=== PATIENT | male | born 1950 | race Caucasian/White ===

== ENCOUNTER 2016-04-20 12:48 | Emergency (ER) | payer MEDICAID ==
[~2016-04-20] VITALS: Ht 170.2 cm; Wt 90.3 kg
[2016-04-20] MEDS ORDERED: PANTOPRAZOLE SO40 M1 PO (13:00)
[2016-04-20] MEDS ORDERED: MELOXICAM15 MG PO (13:01)
[2016-04-20] MEDS ORDERED: OLANZAPINE20 MG PO (13:01)
[2016-04-20] MEDS ORDERED: SIMVASTATIN20 MG PO (13:01)
[2016-04-20] MEDS ORDERED: FISH OIL1000 MG PO (13:02)
[2016-04-20] MEDS ORDERED: SIMVASTATIN10 MG PO (13:03)
[2016-04-20] MEDS ORDERED: SERTRALINE 100100 MG PO (13:03)
[2016-04-20] MEDS ORDERED: LEVOTHYROXIN0.075 M1 PO (13:03)
[2016-04-20 13:31] LABS: LYMPH # 1.4 K/mm3 (0.7-4.5); LYMPH % 12.7 % (10-50)
--- NOTE | 2016-04-20 13:32 | Emergency Room Report ---
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 PT ALSO C/O HEARTBURN IN THE "PIT OF HIS STOMACH". PT REPORTS HX OF GI PROBLEMS INCLUDING ULCERS. 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 N Clinical Suspician of Infection? N Mental Status: 1 - Regular (Normal Baseline) Sepsis Risk:Low Sepsis Risk Have you (or family members/close friends) recently traveled outside the [place]? N If Yes, where/when: Have you had exposure to infectious disease within the past month? N TB? Other? Specify: Comment The patient is brought in by ambulance with complaint of heartburn and vomiting. He states that he awakened this morning with bad heartburn, took his morning medicines and vomited them up. He says his vomitus was black. He is not sure whether it was from blood. He denies any melena or hematochezia. His nausea and heartburn have improved. He denies chest pain or shortness of breath. He also complains of hiccups. ALLERGIES Coded Allergies: Penicillins (Mild, 04/20/16) haloperidol (Mild, 04/20/16) Home Medications Reported Medications Pantoprazole Sodium 40 MG PO DAILY #30 Simvastatin 20 MG PO DAILY #30 Meloxicam (Meloxicam 15MG) 15 MG PO BID #30 Olanzapine 20 MG PO DAILY #30 OMEGA-3 FATTY ACIDS/FISH OIL (Fish Oil 1,000 MG Capsule) 1,000 MG PO TID #90 Sertraline Hydrochloride (Sertraline 100MG) 100 MG PO DAILY #45 Levothyroxine Sodium (Levothyroxine 0.075MG) 0.075 MG PO DAILY #15 Simvastatin 10 MG PO DAILY #30 History Medical History General CAD? Yes Angina: No [place]: No Hypertension? No Hyperlipidemia? No CHF? No DVT? No PE? No COPD? No Asthma? No Anemia? No GERD? No Gastric ulcers? No GI Bleed? No Hernia? No Thyroid Problems? Yes Hypothyroidism? Yes CVA? No Seizures? No Diabetes? Yes Insulin Dependent: No Insulin Pump: No Home FSBS? No Renal Insuffiency? No End Stage Renal Disease? No UTI? No Stones? No BPH? No GB Disease: No Nephritic Syndrome? No Asplenia? No Hepatitis? No Sickle Cell Disease? No Arthritis? Yes Migraines? No Cataracts? No Glaucoma? No MRSA? No HIV? No TB? No Anxiety? No Depression? No Cancer? No More? Yes Additional hx: SCHIZOPHRENIA, CHR PARANOIA, OA Immunization Hx DT/Tetanus 1-4 Years Ago Surgical Hx Previous Surgery?Y CYST ON NECK TRACH APPENDECTOMY Social History Smoking Hx Smoker: Former Smoker Tobacco: Yes Type Cigarettes Alcohol Alcohol: No Review of Systems All Other Systems Reviewed and Negative Respiratory denies shortness of breath Cardiovascular denies chest pain Gastrointestinal abdominal pain (epigastric), denies diarrhea, nausea, vomiting Physical Exam Vital Signs Vital Signs Date Time Temp Pulse Resp B/P Pulse O2 O2 Flow FiO2 Ox Delivery Rate 04/20 1639 99.0 96 20 146/110 96 04/20 1558 18 04/20 1527 99.2 90 16 159/111 96 04/20 1347 98.9 108 16 122/48 94 04/20 1249 99.2 111 14 125/81 94 General Appearance normal appearance, WD/WN, sitting upright in chair Eye Exam - bilateral eye normal exam, bilateral eye PERRL, bilateral eye EOMI Ear, Nose, Throat hearing grossly normal, normal ENT inspection Neck normal inspection, non-tender, supple, full range of motion Respiratory Status Yes: trachea midline, chest symmetrical, non tender chest. No: respiratory distress. Lung Sounds bilateral: normal breath sounds, lungs clear. 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 No Results/Orders Laboratory Tests 04/20/16 1340: Stool Occult Blood NEGATIVE 04/20/16 1305: Troponin I < 0.02 04/20/16 1305: Sodium 138, Potassium 4.7, Chloride 104, Carbon Dioxide 24, BUN 29 H, Creatinine 1.4 H, Estimated Creat Clear 68, Estimated GFR (MDRD) 51, Glucose 163 H, Calcium 9.1, Total Bilirubin 0.4, AST 19, ALT 23, Alkaline Phosphatase 116, Total Protein 7.8, Albumin 3.3 L, Globulin 4.5 H, Albumin/Globulin Ratio 0.7 L, Amylase 68, Lipase 269, WBC 10.8, RBC 5.62, Hgb 16.0, Hct 48.1, MCV 85.5 , RDW 15.3, Plt Count 301, MPV 8.6, Gran % 79.0, Gran # 8.5 H, Lymphocytes % 12.7, Monocytes % 6.3, Eosinophils % 1.3, Basophils % 0.7, Lymphocytes # 1.4, Monocytes # 0.7, Eosinophils # 0.1, Basophils # 0.1, PUBS MCHC 33.3, MCH 28.5 Current Medication Orders Sig/Martine Start time Last Medication Dose Route Stop Time Status Admin Morphine Sulfate 4 MG ONCE ONE 04/20 1600 DC 04/20 IV 04/20 1601 1558 Ondansetron HCl 4 MG ONCE ONE 04/20 1600 DC 04/20 IV 04/20 1601 1557 Ondansetron HCl 0 .STK-MED ONE 04/20 1555 DC .ROUTE Morphine Sulfate 0 .STK-MED ONE 04/20 1554 DC .ROUTE Multi-Ingredient GI 60 ML ONCE ONE 04/20 1515 DC 04/20 Drug PO 04/20 1516 1509 Multi-Ingredient GI 0 .STK-MED ONE 04/20 1509 DC Drug PO Famotidine 20 MG ONCE ONE 04/20 1400 DC 04/20 IV 04/20 1401 1355 Ondansetron HCl 4 MG ONCE ONE 04/20 1400 DC 04/20 IV 04/20 1401 1355 Sodium Chloride 8 ML ONCE ONE 04/20 1400 DC 04/20 IV 04/20 1401 1355 Famotidine 0 .STK-MED ONE 04/20 1353 DC IV Ondansetron HCl 0 .STK-MED ONE 04/20 1353 DC .ROUTE Sodium Chloride 10 ML PRN PRN 04/20 1315 AC IV 04/21 1304 Sodium Chloride 1,000 ML .Q1H1M 04/20 1315 DC 04/20 IV 04/20 1415 1315 Sodium Chloride 10 ML PRN PRN 04/20 1315 AC IV 04/21 1312 Sodium Chloride 1,000 ML .STK-MED ONE 04/20 1314 DC IV Orders Procedure Date/time Status ELECTROCARDIOGRAM REQUEST 04/20 1347 Active TROPONIN I 04/20 1347 Complete STOOL OCCULT BLOOD 04/20 1346 Complete 12 LEAD EKG-BEN (INITIAL) 04/20 1340 Active IV SALINE LOCK 04/20 1304 Active LIPASE 04/20 1304 Complete CBC WITH AUTO DIFF 04/20 1304 Complete CHEM 12 PROFILE 04/20 1304 Complete AMYLASE 04/20 1304 Complete CM/EKG CM/EKG Comments EKG interpreted by Sergio Andrade MD: Rhythm: sinus Rate: 88 Sherrill: normal Ectopy: none Conduction: normal ST Segment Changes: none T Wave Changes: Nonspecific Q Waves: none Baseline artifact and wander present, but I consider the EKG adequate for accurate interpretation. No evidence of acute ischemia or injury Progress - 3:00 PM: States no change with Pepcid and Zofran. 3:45 PM: States mild improvement, currently rates pain moderate. I suspect biliary colic. Still mildly tender RIGHT upper quadrant. 5:30 PM: Symptoms resolved. Abdomen soft and nontender. Suspect biliary colic. I will recommend gallbladder ultrasound as an outpatient. Departure Departure Disposition DC Home or Self Care(routine) Clinical Impression Primary Impression: Epigastric abdominal pain Condition STABLE Referrals Ben SHAFFER,Maikol Ley (PCP) Patient Instructions DI for Abdominal Pain-Adult Additional Instructions I recommend outpatient gallbladder ultrasound. Additional instructions for ABDOMINAL PAIN: See your physician as soon as possible for further evaluation. Return immediately if worsening abdominal pain, vomiting, shortness of breath, fever, vomiting of blood or abdominal distention. ED Critical Care Critical Care No at 1730
[2016-04-20 14:30] LABS: STOOL OCCULT BLOOD NEGATIVE (NEG)
[2016-04-20 17:48] VITALS: BP 150/67
== END 2016-04-20 17:49 | disposition home or self-care (01) ==
LOC: ER 12:48
PROVIDERS: Emergency Medicine
DX: R10.13 Epigastric pain (principal); E11.9 Type 2 diabetes mellitus without complications; I25.10 Atherosclerotic heart disease of native coronary artery without angina pectoris; Z87.891 Personal history of nicotine dependence
CPT/HCPCS: J2405

== ENCOUNTER 2016-08-07 14:54 | Observation (INO) | payer MEDICAID ==
[~2016-08-07] VITALS: Ht 170.2 cm; Wt 95.3 kg
[~2016-08-07 14:54] MED LIST: FISH OIL1000 MG PO; LEVOTHYROXIN0.075 M1 PO; MELOXICAM15 MG PO; OLANZAPINE20 MG PO; PANTOPRAZOLE SO40 M1 PO; SERTRALINE 100100 MG PO; SIMVASTATIN10 MG PO; SIMVASTATIN20 MG PO
[2016-08-07 14:55] VITALS: BP 105/68
[2016-08-07 15:19] LABS: LYMPH # 2.6 K/mm3 (0.7-4.5); LYMPH % 21.5 % (10-50)
[2016-08-07 15:27] LABS: HEMOGLOBIN 13.1 g/dL (14.1-18.0)
--- NOTE | 2016-08-07 15:33 | Emergency Room Report ---
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 N Clinical Suspician of Infection? N Mental Status: 1 - Regular (Normal Baseline) Sepsis Risk:Low Sepsis Risk Have you (or family members/close friends) recently traveled outside the [place]? N If Yes, where/when: Have you had exposure to infectious disease within the past month? TB? Other? Specify: [place] resident, reports "coffee grounds emesis" by staff today. Has epigastric pain, nonradiating. No chest pain. Hx PUD. Denies NSAID or aspirin use. No BRBPR. Noted by EMS to have hypotension in the field, SBP upper 70's, improved with IVF administration prior to arrival. No emesis while in ambulance. Source patient, EMS ALLERGIES Coded Allergies: Penicillins (Mild, 04/20/16) haloperidol (Mild, 04/20/16) Home Medications Reported Medications Pantoprazole Sodium 40 MG PO DAILY #30 Simvastatin 20 MG PO DAILY #30 Meloxicam (Meloxicam 15MG) 15 MG PO BID #30 Olanzapine 20 MG PO DAILY #30 OMEGA-3 FATTY ACIDS/FISH OIL (Fish Oil 1,000 MG Capsule) 1,000 MG PO TID #90 Sertraline Hydrochloride (Sertraline 100MG) 100 MG PO DAILY #45 Levothyroxine Sodium (Levothyroxine 0.075MG) 0.075 MG PO DAILY #15 Simvastatin 10 MG PO DAILY #30 History Medical History General CAD? Yes Angina: No [place]: No Hypertension? No Hyperlipidemia? No CHF? No DVT? No PE? No COPD? No Asthma? No Anemia? No GERD? No Gastric ulcers? No GI Bleed? No Hernia? No Thyroid Problems? Yes Hypothyroidism? Yes CVA? No Seizures? No Diabetes? Yes Insulin Dependent: No Insulin Pump: No Home FSBS? No Renal Insuffiency? No End Stage Renal Disease? No UTI? No Stones? No BPH? No GB Disease: No Nephritic Syndrome? No Asplenia? No Hepatitis? No Sickle Cell Disease? No Arthritis? Yes Migraines? No Cataracts? No Glaucoma? No MRSA? No HIV? No TB? No Anxiety? No Depression? No Cancer? No More? Yes Additional hx: SCHIZOPHRENIA, CHR PARANOIA, OA Immunization Hx DT/Tetanus 1-4 Years Ago Surgical Hx Previous Surgery?Y CYST ON NECK TRACH APPENDECTOMY Social History Smoking Hx Smoker: Never Smoker Tobacco: No Alcohol Alcohol: No Review of Systems All Other Systems Reviewed and Negative Gastrointestinal see HPI Physical Exam Vital Signs Vital Signs Date Time Temp Pulse Resp B/P Pulse O2 O2 Flow FiO2 Ox Delivery Rate 08/07 1710 99.2 98 16 162/97 95 08/07 1455 98.2 96 14 105/68 91 General Appearance normal appearance, WD/WN, no apparent distress Eye Exam - bilateral eye normal exam, bilateral eye pale conjunctivae Neck normal inspection, non-tender, supple, full range of motion Respiratory Status Yes: trachea midline, chest symmetrical, non tender chest. No: respiratory distress, tender on palpation, use of accessory muscles, pain on inspiration, pain on expiration, productive cough, non productive cough. Lung Sounds bilateral: normal breath sounds, lungs clear. Cardiovascular normal exam, regular rate/rhythm, no peripheral edema, no gallop, no JVD, no murmur, no rub, normal peripheral pulses Gastrointestinal soft, no pulsatile mass, distended (hypoactive BS, slightly dist. ) Extremities non-tender, normal range of motion, normal inspection, normal capillary refill, no calf tenderness, no pedal edema (pallor) Rectal normal exam, normal rectal tone (brown stool; card to lab) Nurse present during exam? Yes Neurologic alert, normal exam, no motor/sensory deficits, oriented x 3 Skin intact, warm/dry, abrasions, pallor Lymphatic no adenopathy Medical Decision Making LABS/Meds/Orders Pt receiving controlled substance in ED? No Results/Orders Laboratory Tests 08/07/16 1640: Antibody Screen Pending, Miscellaneous Test Pending 08/07/16 1600: Stool Occult Blood NEGATIVE 08/07/16 1445: Sodium 140, Potassium 3.5, Chloride 103, Carbon Dioxide 18 L, BUN 36 H, Creatinine 2.2 H, Estimated Creat Clear 44 L, Estimated GFR (MDRD) 30, Glucose 246 H, Calcium 8.6, Total Bilirubin 0.5, AST 14 L, ALT 23, Alkaline Phosphatase 110, Total Protein 7.7, Albumin 3.2 L, Globulin 4.5 H, Albumin/ Globulin Ratio 0.7 L, Amylase 53, Lipase 197, PT 11.4, INR 1.07, APTT 23.0 L, WBC 12.3 H, RBC 4.80, Hgb 13.1 L, Hct 39.6 L, MCV 82.6, RDW 13.7, Plt Count 398, MPV 6.2 L, Gran % 72.6, Gran # 8.9 H, Lymphocytes % 21.5, Monocytes % 5.2 , Eosinophils % 0.1, Basophils % 0.5, Lymphocytes # 2.6, Monocytes # 0.6, Eosinophils # 0.0, Basophils # 0.1, PUBS MCHC 32.5, MCH 26.8 L Current Medication Orders Sig/Martine Start time Last Medication Dose Route Stop Time Status Admin Pantoprazole Sodium 0 .STK-MED ONE 08/07 1701 DC IV Sodium Chloride 1,000 ML .STK-MED ONE 08/07 1701 DC IV Ondansetron HCl 0 .STK-MED ONE 08/07 1700 DC .ROUTE Ondansetron HCl 4 MG ONCE ONE 08/07 1615 DC 08/07 IV 08/07 1616 1707 Pantoprazole Sodium 40 MG ONCE ONE 08/07 1530 DC 08/07 IV 08/07 1531 1707 Sodium Chloride 10 ML ONCE ONE 08/07 1530 DC 08/07 IV 08/07 1531 1709 Sodium Chloride 1,000 ML .Q1H1M 08/07 1530 DC 08/07 IV 08/07 1630 1707 Sodium Chloride 10 ML PRN PRN 08/07 1530 AC IV 08/08 1529 Sodium Chloride 10 ML PRN PRN 08/07 1515 AC IV 08/08 1507 Orders Procedure Date/time Status DIET-NOTHING BY MOUTH 08/07 D Active Decision to admit 08/07 1712 Active PARTIAL THROMBOPLASTIN TIME 08/07 1529 Complete PROTHROMBIN TIME 08/[address] ABD/PELVIS REQ 08/07 1507 Complete IV SALINE LOCK 08/07 1507 Active TYPE AND SCREEN 08/07 1507 Active STOOL OCCULT BLOOD 08/07 1507 Complete LIPASE 08/07 1507 Complete CBC WITH AUTO DIFF 08/07 1507 Complete CHEM 12 PROFILE 08/07 1507 Complete AMYLASE 08/07 1507 Complete Consult MD Physician Consult 1 Time Called 1631 Reason Pt. Condition Physician Consult 2 Time Called 1709 Reason Pt. Condition Progress ED Progress Notes Date 08/07/16 Time 1713 Comment BP improving; admit for fluid hydration and serial guiacs; I spoke with Dr. Field for Dr. Pablo Departure Departure Time of Disposition 1713 Disposition Still a Patient Clinical Impression Primary Impression: Dehydration Secondary Impressions: Vomiting Qualifiers: Vomiting type: unspecified Vomiting Intractability: non-intractable Nausea presence: with nausea Qualified Code: R11.2 - Nausea with vomiting, unspecified Condition STABLE Referrals Conrado Garber (Family) ED Critical Care Critical Care No at 1714
[2016-08-07 16:10] LABS: STOOL OCCULT BLOOD NEGATIVE (NEG)
--- NOTE | 2016-08-07 16:16 | RADIOLOGY REPORT PS360 ---
CT ABD PELVIS W/O CONTRAST CLINICAL INDICATION: Abdominal pain, right upper quadrant pain with vomiting and bloating ABD PAIN RUQ ORDERING PHYSICIAN: Nafisa Fishman MD PATIENT AGE: 66 years COMPARISON: None TECHNIQUE: Axial images obtained with sagittal and coronal reformats. PROCEDURE: Oral Contrast: None IV Contrast: None . FINDINGS: Lung bases are clear. No focal liver lesion evident. There are multiple gallstones. The gallbladder does not appear distended. There is a medium-sized hiatal hernia with mild fluid-filled distention of the distal esophagus which could be related to reflux. The spleen and adrenal glands are unremarkable. There is a subtle area of decreased attenuation within the pancreatic head measuring 7 mm. This is of questionable clinical significance and may be better evaluated with dedicated CT of the pancreas without and with contrast with pancreatic protocol. There are bilateral renal cortical cysts measuring up to 2.9 cm on the left and 1.8 cm on the right. No obstructing renal or ureteral calculi. No evidence of appendicitis or diverticulitis. There is diverticulosis of the sigmoid colon No acute bony anomalies. IMPRESSION: 1. Cholelithiasis. 2. Subtle isodense in the pancreatic head. Consider follow-up exam with pancreatic protocol. 3. Other nonacute findings as described above.
[2016-08-07 17:29] LABS: ABO BLOOD TYPE O; RH BLOOD TYPE POSITIVE
[2016-08-07 18:58] VITALS: BP 126/78
[2016-08-07 20:20] VITALS: BP 126/78
[2016-08-07 20:29] VITALS: BP 161/91
[2016-08-08] VITALS (12 sets, daily range): BP systolic 123–185; BP diastolic 53–95
[2016-08-08 06:38] LABS: HEMOGLOBIN 10.8 g/dL (14.1-18.0); LYMPH # 2.1 K/mm3 (0.7-4.5); LYMPH % 17.8 % (10-50)
--- NOTE | 2016-08-08 08:16 | HISTORY AND PHYSICAL REPORT ---
Demographics: Admit date: 08/07/16 Chief complaint: Vomiting coffee grounds PRIMARY DIAGNOSIS: DEHYDRATION Allergies: Coded Allergies: Penicillins (Mild, 04/20/16) haloperidol (Mild, 04/20/16) History of present illness: History of present illness: 66-year-old white male, resident of a local personal retirement who was brought by EMS to the emergency department because of vomiting and reported coffee ground emesis. Also was dehydrated, in the emergency department found to have prerenal azotemia with acute kidney injury, evidence of coffee-ground emesis and reported hypotension by EMS in route. He was rehydrated in the emergency department and admitted to the floor for further evaluation. This morning he states he is feeling some better, and has eaten a tray of clear liquids. He has not vomited since last night. Past medical history: Family HX Diabetes Yes CAD Yes Hypertension Yes Hyperlipidemia Yes Cancer Yes TB No Immunization HX DT/Tetanus 1-4 Years Ago Pneumonia Never Had TB Test in last year Yes Result Negative General CAD? Yes Angina: No [place]: No Hypertension? No Hyperlipidemia? No CHF? No DVT? No PE? No COPD? No Asthma? No Anemia? No GERD? No Gastric ulcers? No GI Bleed? No Hernia? No Thyroid Problems? Yes Hypothyroidism? Yes CVA? No Seizures? No Diabetes? Yes Insulin Dependent: No Insulin Pump: No Home FSBS? No Renal Insuffiency? No UTI? No Stones? No BPH? No GB Disease: No Nephritic Syndrome? No Asplenia? No Hepatitis? No Sickle Cell Disease? No Arthritis? Yes Migraines? No Cataracts? No Glaucoma? No MRSA? No HIV? No TB? No Anxiety? No Depression? No Cancer? No More? Yes Additional hx: SCHIZOPHRENIA, CHR PARANOIA, OA Past Surgical HX Previous Surgery?Y CYST ON NECK TRACH APPENDECTOMY Current home meds: Reported Medications Pantoprazole Sodium 40 MG PO DAILY #30 Simvastatin 20 MG PO DAILY #30 Meloxicam (Meloxicam 15MG) 15 MG PO BID #30 Olanzapine 20 MG PO DAILY #30 OMEGA-3 FATTY ACIDS/FISH OIL (Fish Oil 1,000 MG Capsule) 1,000 MG PO TID #90 Sertraline Hydrochloride (Sertraline 100MG) 100 MG PO DAILY #45 Levothyroxine Sodium (Levothyroxine 0.075MG) 0.075 MG PO DAILY #15 Social Hx: Smoking HX Tobacco No Are you/the child exposed to second-hand smoke: No Alcohol Alcohol: No Hx of Drug Use Drug Use? No Patien't marital status is single Patient's support system is fair Review of systems: Constitutional No: fever, malaise, weakness. Respiratory No: no symptoms reported. Cardiovascular No no symptoms reported Gastrointestinal/Abdominal see HPI Genitourinary No: no symptoms reported. Musculoskeletal No: no symptoms reported. Neurological No: see HPI. Exam: Lab data for last 24 hours: Laboratory Tests 08/08/16 0615: Sodium 142, Potassium 4.5, Chloride 110 H, Carbon Dioxide 23, BUN 34 H, Creatinine 1.3, Estimated Creat Clear 77, Estimated GFR (MDRD) 56, Glucose 150 H, Calcium 7.6 L, WBC 11.5 H, RBC 3.95 L, Hgb 10.8 L, Hct 31.9 L, MCV 80.7 L, RDW 14.0, Plt Count 265, MPV 6.1 L, Gran % 76.7, Gran # 8.9 H, Lymphocytes % 17.8, Monocytes % 4.7, Eosinophils % 0.5, Basophils % 0.2, Lymphocytes # 2.1, Monocytes # 0.5, Eosinophils # 0.1, Basophils # 0.0, PUBS MCHC 33.5, MCH 27.0 08/08/16 0614: POC Glucose 142 H 08/07/16 2017: POC Glucose 145 H 08/07/16 1640: Antibody Screen NEGATIVE, Miscellaneous Test POSITIVE 08/07/16 1600: Stool Occult Blood NEGATIVE 08/07/16 1445: Sodium 140, Potassium 3.5, Chloride 103, Carbon Dioxide 18 L, BUN 36 H, Creatinine 2.2 H, Estimated Creat Clear 44 L, Estimated GFR (MDRD) 30, Glucose 246 H, Calcium 8.6, Total Bilirubin 0.5, AST 14 L, ALT 23, Alkaline Phosphatase 110, Total Protein 7.7, Albumin 3.2 L, Globulin 4.5 H, Albumin/ Globulin Ratio 0.7 L, Amylase 53, Lipase 197, PT 11.4, INR 1.07, APTT 23.0 L, WBC 12.3 H, RBC 4.80, Hgb 13.1 L, Hct 39.6 L, MCV 82.6, RDW 13.7, Plt Count 398, MPV 6.2 L, Gran % 72.6, Gran # 8.9 H, Lymphocytes % 21.5, Monocytes % 5.2 , Eosinophils % 0.1, Basophils % 0.5, Lymphocytes # 2.6, Monocytes # 0.6, Eosinophils # 0.0, Basophils # 0.1, PUBS MCHC 32.5, MCH 26.8 L Admission vital signs: 1ST Vital Signs Result Date Time Pulse Ox 91 08/07 1455 B/P 105/68 08/07 1455 Temp 98.2 08/07 1455 Pulse 96 08/07 1455 Resp 14 08/07 145 O2 Delivery ROOM AIR 08/07 1858 Additional information: Patient is a grizzled appearing white male with long hair and carvalho who appears his stated age. Oropharynx clear, lung neff are clear in the anterior aspect. Abdomen is soft and nontender, no edema. No. Umbilical or flank bruising, no jaundice or scleral icterus. Heart rate is regular without murmurs. No edema or clubbing noted. Plan: Problem List 1. Epigastric abdominal pain 2. Dehydration 3. Vomiting Plan: Patient seems to be clinically improved but his hemoglobin is slightly lower this morning and this patient would benefit from surgical consultation for endoscopy evaluation. Protonix IV, n.p.o. status. at 0816
--- NOTE | 2016-08-08 10:38 | PHARMACY CLINIC NOTE ---
Patient Demographics Patient Demographics Admission date: 08/07/16 Date: 08/08/16 Time: 1038 Allergies Coded Allergies: Penicillins (Mild, 04/20/16) haloperidol (Mild, 04/20/16) HEIGHT- FT: 5 IN: 7.00 K.256 VTE General Information Labs: Laboratory Tests 08/08 08/07 0615 1445 Coagulation PT (9.4 - 11.8 SECONDS) 11.4 INR (0.9 - 1.1) 1.07 APTT (23.6 - 34.0 SECONDS) 23.0 L Hematology Hgb (14.1 - 18.0 g/dL) 10.8 L 13.1 L Hct (42.0 - 52.0 %) 31.9 L 39.6 L Plt Count (142 - 424 K/mm3) 265 398 Disclaimer The following section includes nursing documentation that has been pulled in for pharmacy review. Patient's VTE score: 2 Patient's VTE Risk: VERY LOW RISK Clinical trial participant? No VTE prophylaxis [id number] VTE prophylaxis ordered? Yes Type of prophylaxis/treatment: DIGNA at 1038
--- NOTE | 2016-08-08 14:04 | CONSULT NOTE ---
Standard Demographics Patient Demo Date of Consultation: 08/08/16 Referring Provider: Willard Pablo MD Reason for Consultation: GI bleed PRIMARY DIAGNOSIS: DEHYDRATION Allergies: Coded Allergies: Penicillins (Mild, 04/20/16) haloperidol (Mild, 04/20/16) History of Present Illness Chief Complaint: "coffee ground emesis" History of Present Illness: This is a 66yo male seen in consultation from Dr. Pablo for evaluation after presenting with "coffee ground emesis". + nausea. + dark stools. No LOC. Past Medical History Reports: CAD, diabetes mellitus. Surgical History Previous Surgery?Y CYST ON NECK TRACH APPENDECTOMY Allergies Coded Allergies: Penicillins (Mild, 04/20/16) haloperidol (Mild, 04/20/16) Medications: Reported Medications Pantoprazole Sodium 40 MG PO DAILY #30 Simvastatin 20 MG PO DAILY #30 Meloxicam (Meloxicam 15MG) 15 MG PO BID #30 Olanzapine 20 MG PO DAILY #30 OMEGA-3 FATTY ACIDS/FISH OIL (Fish Oil 1,000 MG Capsule) 1,000 MG PO TID #90 Sertraline Hydrochloride (Sertraline 100MG) 100 MG PO DAILY #45 Levothyroxine Sodium (Levothyroxine 0.075MG) 0.075 MG PO DAILY #15 Additional medical history: schizophrenia hypothyroidism Smoking Hx Tobacco: No Smoker: Never Smoker Type: N/A Packs/day: N/A Are you/the child exposed to second-hand smoke: No Alcohol Alcohol: No Hx of Drug Use Drug Use? No Review of Systems Constitutional No: recent weight loss. Skin No: bruising. Immune/allergy No: anaphalaxis. Eyes No: discharge. ENT No: nose bleed. Respiratory No: pneumonia. GI Positive for: hematemeis, melena, nausea. No: hematochezia. (male) No: hematuria. Heme No: petechia. Neurological Positive for: confusion. Psychiatric No: anxious. Physical Exam VS/I&O Vital Signs Date Time Temp Pulse Resp B/P Pulse O2 O2 Flow FiO2 Ox Delivery Rate 08/08 0953 99.1 89 18 136/79 94 08/08 0829 99.1 89 18 136/79 94 ROOM AIR 08/08 0422 99.3 99 18 140/88 96 ROOM AIR 08/07 2036 103 04/20 2037 93 ROOM AIR 08/07 2028 99.2 103 20 161/91 93 ROOM AIR 08/08 2019 98.5 116 20 126/78 08/07 1858 98.5 116 20 126/78 94 ROOM AIR 08/07 1820 100.3 98 16 159/102 94 08/07 1814 100.3 98 16 159/102 94 08/07 1710 99.2 98 16 162/97 95 08/07 1455 98.2 96 14 105/68 91 I&O 08/08 0700 Intake Total 1764 Output Total 200 Balance 1564 Intake, IV 1524 Intake, Oral 240 Output, 200 Emesis Patient 95.256 kg Weight Exam General appearance no acute distress Neck full ROM Respiratory no distress Cardiovascular regular rate and rhythm Abdomen soft Findings/Data HGB 10.8 Plan Plan: Impression: Hematemesis Plan: EGD at 1410
--- NOTE | 2016-08-08 15:14 | Operative Note ---
Surgeon/Diagnoses Surgeon/Dental Services Director(s) Date of procedure: 08/08/16 Surgeon: MD Nicolasa Heni Diagnoses Pre-op diagnosis: Hematemesis Post-op diagnosis Hematemesis Gastritis Distal esophagitis with erosion Large sliding hiatal hernia Possible candidal infection and possible paraesophageal hernia Procedure Procedure Procedure: Esophagogastroduodenoscopy with biopsy Indications: SOURAV MARTINEZ is a 66 year-old Male with a history of recent hematemesis. Findings: Distal esophagitis with patchy erosions and some "white patches" consistent with possible focal candidal infection No active bleeding Large sliding hiatal hernia Possible paraesophageal hernia (overall the proximal stomach was inadequately visualized secondary to the patient's toleration of sedation) No ulcerations noted in gastric lumen Small bowel appeared normal Procedure Description: After informed consent was obtained, the patient was taken to the endoscopy suite. Monitored anesthesia care ensued after he was transferred to the LEFT lateral decubitus position. The gastroscope was advanced. The distal esophagus was inflamed and patchy erosions were noted. "White patches" consistent with possible candidal infection was noted. The patient was not tolerating sedation very well and had fairly significant movement making the risk of taking distal esophageal biopsies quite high. The stomach was entered. Retroflexion did reveal fairly large sliding hiatal hernia. A possible paraesophageal hernia was also noted; however, overall visualization of the proximal stomach was limited secondary to the above stated toleration of sedation. Some patchy inflammatory changes of the distal stomach were noted and a biopsy of the antrum was obtained. The pylorus was intubated. The duodenal mucosa appeared relatively normal. No ulcerations were noted. No active bleeding was noted. No old blood was seen. The gastroscope was carefully removed and the patient was transferred to recovery. EBL (ml): 1 Anesthesia: Monitored anesthesia care Complications: No immediate Specimens: Antral biopsy Disposition Disposition: Stable to recovery from where he will be transferred back to the floor. He will begin Diflucan for possible candidal esophagitis. He will continue his proton pump inhibitor and carafate will be added (at least for the next few weeks). Reevaluation with repeat esophagogastroduodenoscopy in 4-8 weeks is warranted. The benefit of UGI for better evaluation of the proximal stomach and possible paraesophageal herniation is also considered. at [id number]
[2016-08-09 04:36] VITALS: BP 106/52
[2016-08-09 07:07] LABS: LYMPH # 1.5 K/mm3 (0.7-4.5); LYMPH % 17.1 % (10-50)
[2016-08-09 07:17] LABS: HEMOGLOBIN 8.6 g/dL (14.1-18.0)
[2016-08-09 08:00] VITALS: BP 123/66
--- NOTE | 2016-08-09 08:01 | ACUTE CARE PROGRESS NOTE (QUA) ---
Progress Notes Subjective Date 08/09/16 Time 0759 Note Patient feels tired and anxious, but does report that his stomach is feeling "some better" and he tolerated a full liquid diet this morning. Surgical consult note and procedure reviewed and appreciated. Patient has clear lungs, regular heart rate, abdomen is soft, slightly distended. This is baseline. No edema noted. Objective Findings Last VS-Temp:97.7 B/P:106/52 Pulse:96 Resp:16 SaO2:95 OXYGEN Last weight lbs:210 oz:0 K.256 Method:Bed Scales Assessment/Plan Problem List 1. Epigastric abdominal pain 2. Dehydration 3. Vomiting Qualifiers: Vomiting type: unspecified Vomiting Intractability: non-intractable Nausea presence: with nausea Qualified Code: R11.2 - Nausea with vomiting, unspecified 4. Anemia due to gastrointestinal blood loss Patient condition Improving Plan: continue current care, continue current medications post endoscopy, patient would be a candidate for blood transfusion but actually refuses because "I don't believe in them," but this apparently is not for latter-day reasons. I plan to discontinue IV fluids. This will hopefully avoid more dilution of his hemoglobin. Recheck labs tomorrow. Transfer back to [facility] if hemoglobin stable and abdominal discomfort improves. Restart olanzapine for his bipolar issues and low-dose Ativan during the hospitalization for anxiety. This inpt stay is expected to cross 2 MNs from start of care Yes at 0800
--- NOTE | 2016-08-09 08:01 | ACUTE CARE PROGRESS NOTE (QUA) ---
Progress Notes Subjective Date 08/09/16 Time 0759 Note Patient feels tired and anxious, but does report that his stomach is feeling "some better" and he tolerated a full liquid diet this morning. Surgical consult note and procedure reviewed and appreciated. Patient has clear lungs, regular heart rate, abdomen is soft, slightly distended. This is baseline. No edema noted. Objective Findings Last VS-Temp:97.7 B/P:106/52 Pulse:96 Resp:16 SaO2:95 OXYGEN Last weight lbs:210 oz:0 K.256 Method:Bed Scales Assessment/Plan Problem List 1. Epigastric abdominal pain 2. Dehydration 3. Vomiting Qualifiers: Vomiting type: unspecified Vomiting Intractability: non-intractable Nausea presence: with nausea Qualified Code: R11.2 - Nausea with vomiting, unspecified 4. Anemia due to gastrointestinal blood loss Patient condition Improving Plan: continue current care, continue current medications post endoscopy, patient would be a candidate for blood transfusion but actually refuses because "I don't believe in them," but this apparently is not for jain reasons. I plan to discontinue IV fluids. This will hopefully avoid more dilution of his hemoglobin. Recheck labs tomorrow. Transfer back to [facility] if hemoglobin stable and abdominal discomfort improves. Restart olanzapine for his bipolar issues and low-dose Ativan during the hospitalization for anxiety. This inpt stay is expected to cross 2 MNs from start of care Yes at 0800
[2016-08-09 13:10] LABS: HEMOGLOBIN 8.4 g/dL (14.1-18.0)
[2016-08-09 16:00] VITALS: BP 120/58
[2016-08-09 19:24] VITALS: BP 149/69
[2016-08-09 20:00] VITALS: BP 149/69
[2016-08-10 05:07] VITALS: BP 111/69
[2016-08-10 06:38] LABS: HEMOGLOBIN 8.6 g/dL (14.1-18.0); LYMPH # 1.8 K/mm3 (0.7-4.5); LYMPH % 32.5 % (10-50)
--- NOTE | 2016-08-10 07:16 | ACUTE CARE PROGRESS NOTE (QUA) ---
Progress Notes Subjective Date 08/10/16 Time 0713 Note Patient has no complaints this morning. He slept well. H and H performed yesterday afternoon dropped slightly. Patient denies vomiting. His abdominal pain has improved. He does not appear to be in any distress this morning. Lungs are clear to auscultation. Heart has regular rate and rhythm. Abdomen is soft and nontender. Bowel sounds are present. Patient is improving. Currently he is on full liquids. H and H this morning is stable. I will speak with Dr. Seo about discharging the patient from the hospital. Objective Findings Last VS-Temp:98.2 B/P:111/69 Pulse:88 Resp:18 SaO2:97 OXYGEN Last weight lbs:210 oz:0 K.256 Method:Bed Scales Laboratory Tests 08/10/16 0630: Sodium 141, Potassium 3.4 L, Chloride 110 H, Carbon Dioxide 26, BUN 11, Creatinine 1.2, Estimated Creat Clear 84, Estimated GFR (MDRD) 61, Glucose 112 H, Calcium 7.9 L, Total Bilirubin 0.5, AST 16, ALT 15, Alkaline Phosphatase 66, Total Protein 5.9 L, Albumin 2.3 L, Globulin 3.6 H, Albumin/Globulin Ratio 0.6 L, WBC 5.5, RBC 3.18 L, Hgb 8.6 L, Hct 26.3 L, MCV 82.8, RDW 14.5, Plt Count 191, MPV 7.4, Gran % 56.9, Gran # 3.1, Lymphocytes % 32.5, Monocytes % 6.2 , Eosinophils % 3.5, Basophils % 0.9, Lymphocytes # 1.8, Monocytes # 0.3, Eosinophils # 0.2, Basophils # 0.1, PUBS MCHC 32.7, MCH 27.1 08/10/16 0608: POC Glucose 107 08/09/16 2029: POC Glucose 138 H 08/09/16 1713: POC Glucose 115 H 08/09/16 1301: Hgb 8.4 L, Hct 27.0 L 08/09/16 1143: POC Glucose 120 H Reviewed: lab results Assessment/Plan Problem List 1. Epigastric abdominal pain 2. Dehydration 3. Vomiting Qualifiers: Vomiting type: unspecified Vomiting Intractability: non-intractable Nausea presence: with nausea Qualified Code: R11.2 - Nausea with vomiting, unspecified 4. Anemia due to gastrointestinal blood loss Patient condition Improving Plan: continue current care This inpt stay is expected to cross 2 MNs from start of care Yes at 0715
[2016-08-10] MEDS ORDERED: CARAFATE1 GM/10 ML PO (07:18)
[2016-08-10] MEDS ORDERED: PANTOPRAZOLE SO40 MG PO (07:18)
[2016-08-10] MEDS ORDERED: DIFLUCAN 100MG100 MG PO (07:18)
--- NOTE | 2016-08-10 07:37 | Discharge Summary ---
Demographics Admit date: 08/07/16 Discharge date: 08/10/16 Discharge diagnoses Problem List 1. Epigastric abdominal pain 2. Dehydration 3. Vomiting 4. Anemia due to gastrointestinal blood loss History of present illness History of present illness 66-year-old white male, resident of a local [facility] [place] [facility] who was brought by EMS to the emergency department because of vomiting and reported coffee ground emesis. Also was dehydrated, in the emergency department found to have prerenal azotemia with acute kidney injury, evidence of coffee-ground emesis and reported hypotension by EMS in route. He was rehydrated in the emergency department and admitted to the floor for further evaluation. This morning he states he is feeling some better, and has eaten a tray of clear liquids. He has not vomited since last night. Patient was admitted on the and after fluid resuscitation his blood pressure responded well. Vomiting resolved overnight and the patient tolerated clear liquids. On the he underwent EGD by Dr. Hein which revealed "Distal esophagitis with patchy erosions and some "white patches" consistent with possible focal candidal infection". The patient was started on sucralfate 4 times a day, fluconazole 100 mg daily, Protonix twice daily. Patient's diet was advanced at that point until he was on a full liquid diet. H and H was followed. H and H dropped to 8.6. At that point his fluids were discontinued to avoid hemodilution. Follow-up H and H's remained in the mid eights. When his anemia worsened discussion was had with the patient about blood transfusion which he stated he would refuse. On the the patient was tolerating liquids without abdominal pain. He had not had any vomiting since admission. H and H was stable. He was discharged back to the [facility] [place] [facility] to continue sucralfate 4 times a day, fluconazole 100 mg daily for an additional 7 days, pantoprazole twice daily in addition to his regular medicines. Patient will follow-up with Dr. Aguiar in 2 days Medications Medications: Discharge meds are as noted. Follow up Follow up in office in: 2 DAYS with: MARY HEIN MD at 0727
[2016-08-10 08:00] VITALS: BP 126/71
[2016-08-10 09:03] VITALS: BP 111/69
--- OUTSIDE RECORDS SUMMARY | 2016-08-16 09:34 | External Medical Summary Rpt ---
Author Author , Organization [employer] Address Unknown Phone Unavailable Care Team Providers Care Hat Finisher Name Role Phone RM HARRELL, Unavailable Unavailable RM HARRELL [facility] Unavailable Unavailable SERVICE, [facility] Unavailable Unavailable SERVICE, [facility] Unavailable Unavailable [place], [facility] Unavailable Unavailable [place], [id number], Unavailable Unavailable [id number] Unavailable [facility]available DI[facility]STIC [facility], [facility] Unavailable Unavailable [facility], [facility] Unavailable Unavailable TRANSPORTATION [facility], [facility] Unavailable Unavailable INC, [facility] Unavailable Unavailable [facility] P, [facility], [facility] Unavailable Unavailable [facility] [employer], Unavailable Unavailable [facility] [employer] [facility] MARILYN DICKSON, MARILYN DICKSON Unavailable Unavailable KEISHA FAYETTE URBAN Unavailable Unavailable [place], KEISHA FAYETTE [facility] EMI ATT, EMI Unavailable Unavailable ATT NICKELS POLY, NICKELS Unavailable Unavailable [facility] Un[facility] Un[facility], [facility], Unavailable Unavailable [facility], Unavailable Unavailable [facility] Unavailable Unavailable [facility], [facility] BRENT MIRELES, Unavailable Unavailable BRENT MIRELES [facility], Unavailable Unavailable [facility], Unavailable Unavailable [facility] Purpose Continuity of Care Document - 07-12-2007 through 2016 Problems Code Diagnosis DOS Provider Status E039 HYPOTHYROID 06-19-2016 [facility] UNSPECIFIED [place] E119 TYPE 2 04-20-2016 [place] DI[facility]ET[facility] P WITHOUT COMPLICATIO NS I2510 [facility] [place] [place] 04-20-2016 [place] CORONARY [facility] ARTERY W/O HOSPITAL P ANGINA PECT[place]IS R1013 EPIGASTRIC 04-20-2016 [place] PAIN [facility] P R1110 VOMITING 04-20-2016 [facility] U[facility]PEC[facility] AMBULANCE SERVICE R12 HEARTBURN 04-20-2016 [facility] [id number] PERSONAL 04-20-2016 [facility] P DEPENDENCE E785 HYPERLIPIDE 02-28-2016 [facility] UNSPECIFIED LA D649 ANEMIA 09-05-2015 COMBINED UNSPECIFIED PHYSICIANS LA I10 ESSENTIAL 09-05-2015 [facility] PRIMARY [facility] HYPERTENSIO LA N R69 ILLNESS 04-25-2015 [facility] UNSPECIFIED [place]ORT[place] 86556 NONSPEC 11-23-2014 [facility] TUBERCULIN DIAGNOSTIC SKIN TEST SE W/O ACTIVE TB 2724 OTHER AND 08-31-2014 COMBINED UNSPECIFIED PHYSICIANS LA HYPERLIPIDE STEFFEN 2449 UNSPECIFIED 06-29-2014 [facility] HYPOTHYROID [place] ISM 64109 DIAB W/O 03-29-2012 [facility] II/UNS NOT STATED UNCNTRL 78835 OTHER 03-29-2012 [facility] FATIGUE V741 SCREENING 01-23-2012 [facility] PULMONARY TUBERCULOSI S V5869 LONG-TERM 12-17-2011 COMBINED (CURRENT) PHYSICIANS USE OF LA OTHER MEDICATIONS 4293 CARDIOMEGAL 05-29-2011 [facility] 5180 PULMONARY 05-29-2011 [facility] 40619 CHEST PAIN 05-29-2011 [facility] 90271 ACUTE 05-27-2011 [facility] DUE TO OF [facility] SOLAR RADIATION 3671 MYOPIA 08-11-2008 [facility] 2720 PURE 09-22-2007 [facility] [employer] TEROLEMIA 90225 ESOPHAGEAL 09-22-2007 [facility] 7823 EDEMA 09-22-2007 [facility] [employer] 7962 ELEVATED BP 09-22-2007 [facility] [employer] WITHOUT DX HYPERTENSIO N E86.0 DEHYDRATION R10.13 EPIGASTRIC PAIN R11.10 VOMITING, UNSPECIFIED Allergies, Adverse Reactions, Alerts Clinical Alert Notifications Alert Diabetes: no A1C in the last 6 months Diabetes: no eye exam in the last 365 days Diabetes: no influenza vaccine in the last 365 days Diabetes: no urine protein screening in the last 365 days Medications Na ND Rx Da Fi Fi Am Da Di Ph RX Ph St me C No te ll ll ou ys ag ar # ys at rm s nt no ma ic us Or Da si cy ia de te s n re d LE 00 03 04 15 30 00 ME Ac VO 37 -2 -2 .0 00 D ti TH 81 7- 8- 00 13 CA ve YR 80 20 20 94 RE OX 51 17 17 64 IN 0 50 PH E AR 75 MA CY MC G TA BL ET PA 00 03 04 30 30 00 ME Ac NT 09 -1 -2 .0 00 D ti OP 30 8- 1- 00 13 CA ve RA 01 20 20 90 RE ZO 29 17 17 00 LE 8 41 PH AR SO MA D CY DR 40 MG TA B FI 30 03 04 90 30 00 ME Ac SH 76 -1 -1 .0 00 D ti 80 0- 4- 00 13 CA ve OI 03 20 20 87 RE L 30 17 17 91 1, 4 82 PH 00 AR 0 MA MG CY SO FT GE L OL 00 03 04 30 30 00 ME Ac AN 09 -1 -1 .0 00 D ti ZA 35 4- 4- 00 13 CA ve PI 10 20 20 88 RE NE 50 17 17 23 5 01 PH 20 AR MA MG CY TA BL ET SI 68 03 04 30 30 00 ME Ac MV 18 -1 -1 .0 00 D ti 00 4 4 13 CA ve TA 47 20 20 88 RE TI 90 17 17 23 N 2 11 PH 20 AR MA MG CY TA BL ET ME 69 03 04 30 30 00 ME Ac LO 09 -1 -1 .0 00 D ti XI 70 4- 4 00 13 CA ve CA 15 20 20 88 RE M 90 17 17 23 15 7 02 PH AR MG MA CY TA BL ET SE 68 03 04 45 30 00 ME Ac RT 18 -0 -0 .0 00 D ti RA 00 3 7- 00 13 CA ve LI 35 20 20 83 RE NE 30 17 17 76 9 45 PH HC AR L MA 10 CY 0 MG TA BL ET LE 00 02 03 15 30 00 ME Ac VO 37 -2 -3 .0 00 D ti TH 81 8- 1- 00 13 CA ve YR 80 20 20 81 RE OX 51 17 17 35 IN 0 41 PH E AR 75 MA CY MC G TA BL ET PA 00 02 03 30 30 00 ME Ac NT 09 -1 -2 .0 00 D ti OP 30 7- 4- 00 13 CA ve RA 01 20 20 76 RE ZO 29 17 17 37 LE 8 87 PH AR SO MA D CY DR 40 MG TA B OL 00 02 03 30 30 00 ME Ac AN 09 -1 -1 .0 00 D ti ZA 35 3- 7- 00 13 CA ve PI 10 20 20 73 RE NE 50 17 17 42 5 08 PH 20 AR MA MG CY TA BL ET SI 68 02 03 30 30 00 ME Ac MV 18 -1 -1 .0 00 D ti 00 3 7- 00 13 CA ve TA 47 20 20 73 RE TI 90 17 17 42 N 2 21 PH 20 AR MA MG CY TA BL ET ME 69 02 03 30 30 00 ME Ac LO 09 -1 -1 .0 00 D ti XI 70 3- 7- 00 13 CA ve CA 15 20 20 73 RE M 90 17 17 42 15 7 09 PH AR MG MA CY TA BL ET SM 10 02 03 90 30 00 ME Ac 93 -1 -1 .0 00 D ti FI 90 0- 7- 00 13 CA ve SH 75 20 20 72 RE 64 17 17 82 OI 4 51 PH L AR 1, MA 00 CY 0 MG SO FT GE L SE 68 02 03 45 30 00 ME Ac RT 18 -0 -1 .0 00 D ti RA 00 3- 0- 00 13 CA ve LI 35 20 20 69 RE NE 30 17 17 59 9 61 PH HC AR L MA 10 CY 0 MG TA BL ET LE 00 02 03 15 30 00 ME Ac VO 37 -0 -0 .0 00 D ti TH 81 1 3- 00 13 CA ve YR 80 20 20 68 RE OX 51 17 17 09 IN 0 39 PH E AR 75 MA CY MC G TA BL ET PA 00 01 02 30 30 00 ME Ac NT 09 -2 -2 .0 00 D ti OP 30 0- 4- 00 13 CA ve RA 01 20 20 62 RE ZO 29 17 17 62 LE 8 19 PH AR SO MA D CY DR LL 40 C MG TA B FI 00 01 02 90 30 00 ME Ac SH 90 -1 -1 .0 00 D ti 44 3- 7- 00 13 CA ve OI 04 20 20 59 RE L 36 17 17 11 1, 0 14 PH 00 AR 0 MA MG CY CA LL PS C UL E DI 00 01 02 60 30 00 ME Ac PH 60 -1 -1 .0 00 D ti EN 33 3- 7- 00 13 CA ve HY 33 [address] 93 17 17 16 AM 2 96 PH IN AR E MA 25 CY MG LL C CA PS UL E ME 69 01 02 30 30 00 ME Ac LO 09 -1 -1 .0 00 D ti XI 70 4- 7- 00 13 CA ve CA 15 20 20 59 RE M 90 17 17 51 15 7 36 PH AR MG MA CY TA BL LL ET C OL 00 01 02 30 30 00 ME Ac AN 09 -1 -1 .0 00 D ti ZA 35 4- 7- 00 13 CA ve PI 10 20 20 59 RE NE 50 17 17 51 5 35 PH 20 AR MA MG CY TA LL BL C ET SI 68 01 02 30 30 00 ME Ac MV 18 -1 -1 .0 00 D ti 00 4- 7- 00 13 CA ve TA 47 20 20 59 RE TI 90 17 17 51 N 2 47 PH 20 AR MA MG CY TA LL BL C ET LE 00 01 02 15 30 00 ME Ac VO 37 -0 -0 .0 00 D ti TH 81 2- 3- 00 13 CA ve YR 80 20 20 52 RE OX 51 17 17 99 IN 0 27 PH E AR 75 MA CY MC G LL TA C BL ET SE 68 01 02 45 30 00 ME Ac RT 18 -0 -0 .0 00 D ti RA 00 4- 3- 00 13 CA ve LI 35 20 20 54 RE NE 30 17 17 32 9 77 PH HC AR L MA 10 CY 0 MG LL C TA BL ET OL 00 12 01 30 30 00 ME Ac AN 09 -1 -2 .0 00 D ti ZA 35 6- 0- 00 13 CA ve PI 10 20 20 45 RE NE 50 16 17 37 5 95 PH 20 AR MA MG CY TA LL BL C ET ME 69 12 01 30 30 00 ME Ac LO 09 -1 -2 .0 00 D ti XI 70 6- 0- 00 13 CA ve CA 15 20 20 45 RE M 90 16 17 37 15 7 96 PH AR MG MA CY TA BL LL ET C SI 68 12 01 30 30 00 ME Ac MV 18 -1 -2 .0 00 D ti 00 6- 0- 00 13 CA ve TA 47 20 20 45 RE TI 90 16 17 38 N 2 09 PH 20 AR MA MG CY TA LL BL C ET PA 00 12 01 30 30 00 ME Ac NT 09 -2 -2 .0 00 D ti OP 30 1- 0- 00 13 CA ve RA 01 20 20 47 RE ZO 29 16 17 57 LE 8 00 PH AR SO MA D CY DR LL 40 C MG TA B FI 00 12 01 90 30 00 ME Ac SH 90 -1 -1 .0 00 D ti 44 4- 3- 00 13 CA ve OI 04 20 20 44 RE L 36 16 17 24 1, 0 00 PH 00 AR 0 MA MG CY CA LL PS C UL E LE 00 12 01 15 30 00 ME Ac VO 37 -0 -0 .0 00 D ti TH 81 3- 9- 00 13 CA ve YR 80 20 20 39 RE OX 51 16 17 16 IN 0 83 PH E AR 75 MA CY MC G LL TA C BL ET SE 68 12 01 45 30 00 ME Ac RT 18 -0 -0 .0 00 D ti RA 00 5- 9- 00 13 CA ve LI 35 20 20 39 RE NE 30 16 17 60 9 61 PH HC AR L MA 10 CY 0 MG LL C TA BL ET OL 55 08 06 0 30 30 ME 11 AR Ac AN 11 -2 -2 0. D 41 NO ti ZA 10 1 9- 00 CA 15 LD ve PI 16 20 20 0 RE 61 NE 83 14 15 RI 0 PH CH 20 AR AR MA D MG CY W TA LL BL C ET PA 66 08 06 0 30 30 ME 11 AR Ac NT 99 -2 -2 0. D 41 NO ti OP 30 1- 9- 00 CA 15 LD ve RA 06 20 20 0 RE 62 ZO 88 14 15 RI LE 5 PH CH AR AR SO MA D D CY W DR LL 40 C MG TA B AZ 00 06 06 0 60 5 ME 11 AR Ac IT 09 -2 -2 .0 D 40 NO ti HR 37 5- 6- 00 CA 79 LD ve OM 14 20 20 RE 90 YC 65 15 15 RI IN 6 PH CH AR AR 25 MA D 0 CY W MG LL TA C BL ET FI 00 05 06 0 60 30 ME 11 AR Ac SH 90 -2 -2 0. D 39 NO ti 44 7- 4- 00 CA 88 LD ve OI 04 20 20 0 RE 66 L 36 15 15 RI 1, 0 PH CH 00 AR AR 0 MA D MG CY W CA LL PS C UL E LE 00 09 06 0 15 30 ME 11 AR Ac VO 52 -2 -2 0. D 39 NO ti TH 71 3- 3- 00 CA 57 LD ve YR 34 20 20 0 RE 79 OX 31 14 15 RI IN 0 PH CH E AR AR 75 MA D CY W MC G LL TA C BL ET ME 68 08 06 0 30 30 ME 11 AR Ac LO 38 -2 -2 0. D 39 NO ti XI 20 1- 3- 00 CA 57 LD ve CA 05 20 20 0 RE 78 M 10 14 15 RI 15 5 PH CH AR AR MG MA D CY W TA BL LL ET C SE 59 08 06 0 45 30 ME 11 AR Ac RT 76 -2 -0 0. D 34 NO ti RA 24 1- 5- 00 CA 32 LD ve LI 91 20 20 0 RE 15 NE 00 14 15 RI 5 PH CH HC AR AR L MA D 10 CY W 0 MG LL C TA BL ET PA 00 08 06 0 30 30 ME 11 AR Ac NT 00 -2 -0 0. D 33 NO ti OP 80 1- 1- 00 CA 25 LD ve RA 60 20 20 0 RE 71 ZO 70 14 15 RI LE 1 PH CH AR AR SO MA D D CY W DR LL 40 C MG TA B OL 55 08 06 0 30 30 ME 11 AR Ac AN 11 -2 -0 0. D 33 NO ti ZA 10 1- 1- CA 25 LD ve PI 16 20 20 0 RE 72 NE 83 14 15 RI 0 PH CH 20 AR AR MA D MG CY W TA LL BL C ET FI 00 05 05 0 60 30 ME 11 AR Ac SH 90 -2 -2 0. D 31 NO ti 44 7- 7- 00 CA 75 LD ve OI 04 20 20 0 RE 06 L 36 15 15 RI 1, 0 PH CH 00 AR AR 0 MA D MG CY W CA LL PS C UL E ME 68 08 05 0 30 30 ME 11 AR Ac LO 38 -2 -2 0. D 31 NO ti XI 20 1- 6- 00 CA 43 LD ve CA 05 20 20 0 RE 34 M 10 14 15 RI 15 5 PH CH AR AR MG MA D CY W TA BL LL ET C LE 00 09 05 0 15 30 ME 11 AR Ac VO 52 -2 -2 0. D 31 NO ti TH 71 3- 6- 00 CA 43 LD ve YR 34 20 20 0 RE 35 OX 31 14 15 RI IN 0 PH CH E AR AR 75 MA D CY W MC G LL TA C BL ET SE 59 08 05 0 45 30 ME 11 AR Ac RT 76 -2 -0 0. D 24 NO ti RA 24 1- 6- 00 CA 42 LD ve LI 91 20 20 0 RE 09 NE 00 14 15 RI 5 PH CH HC AR AR L MA D 10 CY W 0 MG LL C TA BL ET OL 55 08 05 0 30 30 ME 11 AR Ac AN 11 -2 -0 0. D 23 NO ti ZA 10 1- 4- 00 CA 56 LD ve PI 16 20 20 0 RE 12 NE 83 14 15 RI 0 PH CH 20 AR AR MA D MG CY W TA LL BL C ET PA 00 08 05 0 30 30 ME 11 AR Ac NT 00 -2 -0 0. D 23 NO ti OP 80 1- 4- 00 CA 56 LD ve RA 60 20 20 0 RE 13 ZO 70 14 15 RI LE 1 PH CH AR AR SO MA D D CY W DR LL 40 C MG TA B ME 68 08 04 0 30 30 ME 11 AR Ac LO 38 -2 -3 0. D 22 NO ti XI 20 1- 0- 00 CA 63 LD ve CA 05 20 20 0 RE 98 M 10 14 15 RI 15 5 PH CH AR AR MG MA D CY W TA BL LL ET C LE 00 09 04 0 15 30 ME 11 AR Ac VO 52 -2 -3 0. D 22 NO ti TH 71 3- 0- 00 CA 64 LD ve YR 34 20 20 0 RE 00 OX 31 14 15 RI IN 0 PH CH E AR AR 75 MA D CY W MC G LL TA C BL ET SE 59 08 04 0 45 30 ME 11 AR Ac RT 76 -2 -0 0. D 15 NO ti RA 24 1- 6- 00 CA 11 LD ve LI 91 20 20 0 RE 86 NE 00 14 15 RI 5 PH CH HC AR AR L MA D 10 CY W 0 MG LL C TA BL ET OL 55 08 04 0 30 30 ME 11 AR Ac AN 11 -2 -0 0. D 14 NO ti ZA 10 1- 4- 00 CA 97 LD ve PI 16 20 20 0 RE 46 NE 83 14 15 RI 0 PH CH 20 AR AR MA D MG CY W TA LL BL C ET PA 00 08 04 0 30 30 ME 11 AR Ac NT 00 -2 -0 0. D 14 NO ti OP 80 1- 4- 00 CA 97 LD ve RA 60 20 20 0 RE 47 ZO 70 14 15 RI LE 1 PH CH AR AR SO MA D D CY W DR LL 40 C MG TA B ME 68 08 03 0 30 30 ME 11 AR Ac LO 38 -2 -3 0. D 13 NO ti XI 20 1- 1- 00 CA 40 LD ve CA 05 20 20 0 RE 99 M 10 14 15 RI 15 5 PH CH AR AR MG MA D CY W TA BL LL ET C LE 00 09 03 0 15 30 ME 11 AR Ac VO 52 -2 -3 0. D 13 NO ti TH 71 3- 1- 00 CA 41 LD ve YR 34 20 20 0 RE 02 OX 31 14 15 RI IN 0 PH CH E AR AR 75 MA D CY W MC G LL TA C BL ET SE 59 08 03 0 45 30 ME 11 AR Ac RT 76 -2 -0 0. D 05 NO ti RA 24 1- 7- 00 CA 59 LD ve LI 91 20 20 0 RE 20 NE 00 14 15 RI 5 PH CH HC AR AR L MA D 10 CY W 0 MG LL C TA BL ET PA 00 08 03 0 30 30 ME 11 AR Ac NT 00 -2 -0 0. D 05 NO ti OP 80 1- 6- 00 CA 29 LD ve RA 60 20 20 0 RE 07 ZO 70 14 15 RI LE 1 PH CH AR AR SO MA D D CY W DR LL 40 C MG TA B OL 55 08 03 0 30 30 ME 11 AR Ac AN 11 -2 -0 0. D 05 NO ti ZA 10 1- 6- 00 CA 29 LD ve PI 16 20 20 0 RE 06 NE 83 14 15 RI 0 PH CH 20 AR AR MA D MG CY W TA LL BL C ET LE 00 09 03 0 15 30 ME 11 AR Ac VO 52 -2 -0 0. D 03 NO ti TH 71 3- 2- 00 CA 28 LD ve YR 34 20 20 0 RE 28 OX 31 14 15 RI IN 0 PH CH E AR AR 75 MA D CY W MC G LL TA C BL ET ME 68 08 03 0 30 30 ME 11 AR Ac LO 38 -2 -0 0. D 03 NO ti XI 20 1- 2- 00 CA 28 LD ve CA 05 20 20 0 RE 27 M 10 14 15 RI 15 5 PH CH AR AR MG MA D CY W TA BL LL ET C SE 59 08 02 0 45 30 ME 10 AR Ac RT 76 -2 -0 0. D 96 NO ti RA 24 1- 6- 00 CA 41 LD ve LI 91 20 20 0 RE 94 NE 00 14 15 RI 5 PH CH HC AR AR L MA D 10 CY W 0 MG LL C TA BL ET PA 00 08 02 0 30 30 ME 10 AR Ac NT 00 -2 -0 0. D 96 NO ti OP 80 1- 5- 00 CA 10 LD ve RA 60 20 20 0 RE 33 ZO 70 14 15 RI LE 1 PH CH AR AR SO MA D D CY W DR LL 40 C MG TA B OL 55 08 02 0 30 30 ME 10 AR Ac AN 11 -2 -0 0. D 96 NO ti ZA 10 1- 5- 00 CA 10 LD ve PI 16 20 20 0 RE 32 NE 83 14 15 RI 0 PH CH 20 AR AR MA D MG CY W TA LL BL C ET LE 00 09 02 0 15 30 ME 10 AR Ac VO 52 -2 -0 0. D 95 NO ti TH 71 3- 2- 00 CA 07 LD ve YR 34 20 20 0 RE 89 OX 31 14 15 RI IN 0 PH CH E AR AR 75 MA D CY W MC G LL TA C BL ET ME 68 08 02 0 30 30 ME 10 AR Ac LO 38 -2 -0 0. D 95 NO ti XI 20 1- 2- 00 CA 07 LD ve CA 05 20 20 0 RE 92 M 10 14 15 RI 15 5 PH CH AR AR MG MA D CY W TA BL LL ET C PA 00 08 01 0 30 30 ME 10 AR Ac NT 00 -2 -0 0. D 87 NO ti OP 80 1- 8- 00 CA 58 LD ve RA 60 20 20 0 RE 00 ZO 70 14 15 RI LE 1 PH CH AR AR SO MA D D CY W DR LL 40 C MG TA B OL 55 08 01 0 30 30 ME 10 AR Ac AN 11 -2 -0 0. D 87 NO ti ZA 10 1- 8- 00 CA 57 LD ve PI 16 20 20 0 RE 99 NE 83 14 15 RI 0 PH CH 20 AR AR MA D MG CY W TA LL BL C ET SE 59 08 01 0 45 30 ME 10 AR Ac RT 76 -2 -0 0. D 87 NO ti RA 24 1- 8- 00 CA 33 LD ve LI 91 20 20 0 RE 93 NE 00 14 15 RI 5 PH CH HC AR AR L MA D 10 CY W 0 MG LL C TA BL ET LE 00 09 01 0 15 30 ME 10 AR Ac VO 52 -2 -0 0. D 87 NO ti TH 71 3- 8- 00 CA 33 LD ve YR 34 20 20 0 RE 96 OX 31 14 15 RI IN 0 PH CH E AR AR 75 MA D CY W MC G LL TA C BL ET ME 68 08 01 0 30 30 ME 10 AR Ac LO 38 -2 -0 0. D 87 NO ti XI 20 1- 8- 00 CA 33 LD ve CA 05 20 20 0 RE 94 M 10 14 15 RI 15 5 PH CH AR AR MG MA D CY W TA BL LL ET C PA 00 08 12 0 30 30 ME 10 AR Ac NT 00 -2 -1 0. D 78 NO ti OP 80 1- 0- 00 CA 27 LD ve RA 60 20 20 0 RE 79 ZO 70 14 14 RI LE 1 PH CH AR AR SO MA D D CY W DR LL 40 C MG TA B OL 55 08 12 0 30 30 ME 10 AR Ac AN 11 -2 -1 0. D 78 NO ti ZA 10 1- 0- 00 CA 27 LD ve PI 16 20 20 0 RE 78 NE 83 14 14 RI 0 PH CH 20 AR AR MA D MG CY W TA LL BL C ET LE 00 09 12 0 15 30 ME 10 AR Ac VO 52 -2 -0 0. D 78 NO ti TH 71 3- 9- 00 CA 02 LD ve YR 34 20 20 0 RE 61 OX 31 14 14 RI IN 0 PH CH E AR AR 75 MA D CY W MC G LL TA C BL ET ME 68 08 12 0 30 30 ME 10 AR Ac LO 38 -2 -0 0. D 78 NO ti XI 20 1- 9- 00 CA 02 LD ve CA 05 20 20 0 RE 60 M 10 14 14 RI 15 5 PH CH AR AR MG MA D CY W TA BL LL ET C SE 59 08 12 0 45 30 ME 10 AR Ac RT 76 -2 -0 0. D 78 NO ti RA 24 1- 9- 00 CA 02 LD ve LI 91 20 20 0 RE 59 NE 00 14 14 RI 5 PH CH HC AR AR L MA D 10 CY W 0 MG LL C TA BL ET OL 55 08 11 0 30 30 ME 10 AR Ac AN 11 -2 -1 0. D 69 NO ti ZA 10 1- 2- 00 CA 63 LD ve PI 16 20 20 0 RE 52 NE 83 14 14 RI 0 PH CH 20 AR AR MA D MG CY W TA LL BL C ET SE 59 08 11 0 45 30 ME 10 AR Ac RT 76 -2 -1 0. D 69 NO ti RA 24 1- 1- 00 CA 63 LD ve LI 91 20 20 0 RE 48 NE 00 14 14 RI 5 PH CH HC AR AR L MA D 10 CY W 0 MG LL C TA BL ET ME 68 08 11 0 30 30 ME 10 AR Ac LO 38 -2 -1 0. D 69 NO ti XI 20 1- 1- 00 CA 63 LD ve CA 05 20 20 0 RE 47 M 10 14 14 RI 15 5 PH CH AR AR MG MA D CY W TA BL LL ET C LE 00 09 11 0 15 30 ME 10 AR Ac VO 52 -2 -1 0. D 69 NO ti TH 71 3- 1- 00 CA 63 LD ve YR 34 20 20 0 RE 50 OX 31 14 14 RI IN 0 PH CH E AR AR 75 MA D CY W MC G LL TA C BL ET PA 00 08 11 0 30 30 ME 10 AR Ac NT 00 -2 -1 0. D 68 NO ti OP 80 1- 0- 00 CA 87 LD ve RA 60 20 20 0 RE 23 ZO 70 14 14 RI LE 1 PH CH AR AR SO MA D D CY W DR LL 40 C MG TA B LE 00 09 10 0 15 30 ME 10 AR Ac VO 52 -2 -1 0. D 60 NO ti TH 71 3- 7- 00 CA 59 LD ve YR 34 20 20 0 RE 16 OX 31 14 14 RI IN 0 PH CH E AR AR 75 MA D CY W MC G LL TA C BL ET OL 55 08 10 0 30 30 ME 10 AR Ac AN 11 -2 -1 0. D 60 NO ti ZA 10 1- 6- 00 CA 59 LD ve PI 16 20 20 0 RE 15 NE 83 14 14 RI 0 PH CH 20 AR AR MA D MG CY W TA LL BL C ET ME 68 08 10 0 30 30 ME 10 AR Ac LO 38 -2 -1 0. D 61 NO ti XI 20 1- 6- 00 CA 60 LD ve CA 05 20 20 0 RE 36 M 10 14 14 RI 15 5 PH CH AR AR MG MA D CY W TA BL LL ET C SE 59 08 10 0 45 30 ME 10 AR Ac RT 76 -2 -1 0. D 61 NO ti RA 24 1- 6- 00 CA 60 LD ve LI 91 20 20 0 RE 35 NE 00 14 14 RI 5 PH CH HC AR AR L MA D 10 CY W 0 MG LL C TA BL ET PA 00 08 10 0 30 30 ME 10 AR Ac NT 00 -2 -1 0. D 60 NO ti OP 80 1- 3- 00 CA 59 LD ve RA 60 20 20 0 RE 14 ZO 70 14 14 RI LE 1 PH CH AR AR SO MA D D CY W DR LL 40 C MG TA B LE 00 09 09 0 15 30 ME 10 AR Ac VO 52 -2 -2 0. D 54 NO ti TH 71 3- 3- 00 CA 22 LD ve YR 34 20 20 0 RE 50 OX 31 14 14 RI IN 0 PH CH E AR AR 75 MA D CY W MC G LL TA C BL ET LE 00 08 09 0 50 5 ME 10 AR Ac VO 52 -2 -1 .0 D 51 NO ti TH 71 7 CA 98 LD ve YR 34 20 20 RE 83 OX 21 14 14 RI IN 0 PH CH E AR AR 50 MA D CY W MC G LL TA C BL ET PA 00 08 09 0 30 30 ME 10 AR Ac NT 00 -2 -1 0. D 51 NO ti OP 80 1 7- 00 CA 98 LD ve RA 60 20 20 0 RE 84 ZO 70 14 14 RI LE 1 PH CH AR AR SO MA D D CY W DR LL 40 C MG TA B OL 55 08 09 0 30 30 ME 10 AR Ac AN 11 -2 -1 0. D 51 NO ti ZA 10 CA 98 LD ve PI 16 20 20 0 RE 81 NE 83 14 14 RI 0 PH CH 20 AR AR MA D MG CY W TA LL BL C ET SE 59 08 09 0 45 30 ME 10 AR Ac RT 76 -2 -1 0. D 51 NO ti RA 24 CA 98 LD ve LI 91 20 20 0 RE 80 NE 00 14 14 RI 5 PH CH HC AR AR L MA D 10 CY W 0 MG LL C TA BL ET ME 68 08 09 0 30 30 ME 10 AR Ac LO 38 -2 -1 0. D 51 NO ti XI 20 7 CA 98 LD ve CA 05 20 20 0 RE 82 M 10 14 14 RI 15 5 PH CH AR AR MG MA D CY W TA BL LL ET C CR 00 06 12 05 30 30 CV 73 BA Ac ES 31 -0 -1 .0 S 37 NK ti TO 00 8 00 PH 03 S ve R 75 20 20 AR DA 10 19 08 08 MA 0 CY D MG M #6 TA 12 BL 0 ET NC 37 06 12 05 56 28 CV 73 BA Ac IL 00 -0 -0 .0 S 31 NK ti OS 00 4- 4 00 PH 06 S ve EC 45 20 20 AR DA 50 08 08 MA OT 2 CY D C M 20 #6 .6 12 0 MG TA BL ET CR 00 06 11 04 30 30 CV 73 BA Ac ES 31 -0 -0 .0 S 37 NK ti TO 00 7- 00 PH 03 S ve R 75 20 20 AR DA 10 19 08 08 MA 0 CY D MG M #6 TA 12 BL 0 ET NC 37 06 10 04 56 28 CV 73 BA Ac IL 00 -0 -2 .0 S 31 NK ti OS 00 4- 3- 00 PH 06 S ve EC 45 20 20 AR DA 50 08 08 MA OT 2 CY D C M 20 #6 .6 12 0 MG TA BL ET CR 00 06 10 03 30 30 CV 73 BA Ac ES 31 -0 -0 .0 S 37 NK ti TO 00 4- 9- 00 PH 03 S ve R 75 20 20 AR DA 10 19 08 08 MA 0 CY D MG M #6 TA 12 BL 0 ET NC 37 06 09 03 56 28 CV 73 BA Ac IL 00 -0 -2 .0 S 31 NK ti OS 00 4- 6- 00 PH 06 S ve EC 45 20 20 AR DA 50 08 08 MA OT 2 CY D C M 20 #6 .6 12 0 MG TA BL ET NC 37 06 08 02 56 28 CV 73 BA Ac IL 00 -0 -2 .0 S 31 NK ti OS 00 4- 8- 00 PH 06 S ve EC 45 20 20 AR DA 50 08 08 MA OT 2 CY D C M 20 #6 .6 12 0 MG TA BL ET CR 00 06 08 02 30 30 CV 73 BA Ac ES 31 -0 -2 .0 S 37 NK ti TO 00 4- 8- 00 PH 03 S ve R 75 20 20 AR DA 10 19 08 08 MA 0 CY D MG M #6 TA 12 BL 0 ET CR 00 06 07 01 30 30 CV 73 BA Ac ES 31 -0 -1 .0 S 37 NK ti TO 00 4- 7- 00 PH 03 S ve R 75 20 20 AR DA 10 19 08 08 MA 0 CY D MG M #6 TA 12 BL 0 ET NC 37 06 07 01 56 28 CV 73 BA Ac IL 00 -0 -1 .0 S 31 NK ti OS 00 4- 7- 00 PH 06 S ve EC 45 20 20 AR DA 50 08 08 MA OT 2 CY D C M 20 #6 .6 12 0 MG TA BL ET NC 37 06 07 00 56 28 CV 73 BA Ac IL 00 -0 -0 .0 S 31 NK ti OS 00 4- 3- 00 PH 06 S ve EC 45 20 20 AR DA 50 08 08 MA OT 2 CY D C M 20 #6 .6 12 0 MG TA BL ET CR 00 06 07 00 30 30 CV 73 BA Ac ES 31 -0 -0 .0 S 37 NK ti TO 00 3 PH 03 S ve R 75 20 20 AR DA 10 19 08 08 MA 0 CY D MG M #6 TA 12 BL 0 ET CR 00 05 05 00 30 30 CV 72 BA Ac ES 31 -1 -2 .0 S 95 NK ti TO 00 PH 70 S ve R 75 20 20 AR DA 10 19 08 08 MA 0 CY D MG M #6 TA 12 BL 0 ET NC 37 09 05 05 56 28 CV 70 No Ac IL 00 -2 -2 .0 S 38 t ti OS 00 PH 05 Av ve EC 45 20 20 AR ai 50 07 08 MA la OT 2 CY bl C e 20 #6 .6 12 0 MG TA BL ET CR 00 09 04 05 30 30 CV 69 No Ac ES 31 -2 -2 .0 S 85 t ti TO 00 PH 40 Av ve R 75 20 20 AR ai 10 19 07 08 MA la 0 CY bl MG e #6 TA 12 BL 0 ET NC 37 09 04 04 56 28 CV 70 No Ac IL 00 -2 -2 .0 S 38 t ti OS 00 PH 05 Av ve EC 45 20 20 AR ai 50 07 08 MA la OT 2 CY bl C e 20 #6 .6 12 0 MG TA BL ET CR 00 09 04 04 30 30 CV 69 No Ac ES 31 -2 -1 .0 S 85 t ti TO 00 PH 40 Av ve R 75 20 20 AR ai 10 19 07 08 MA la 0 CY bl MG e #6 TA 12 BL 0 ET NC 37 09 04 03 56 28 CV 70 No Ac IL 00 -2 -1 .0 S 38 t ti OS 00 PH 05 Av ve EC 45 20 20 AR ai 50 07 08 MA la OT 2 CY bl C e 20 #6 .6 12 0 MG TA BL ET CR 00 09 03 03 30 30 CV 69 No Ac ES 31 -2 -2 .0 S 85 t ti TO 00 PH 40 Av ve R 75 20 20 AR ai 10 19 07 08 MA la 0 CY bl MG e #6 TA 12 BL 0 ET NC 37 09 03 02 56 28 CV 70 No Ac IL 00 -2 -2 .0 S 38 t ti OS 00 PH 05 Av ve EC 35 20 20 AR ai 90 07 08 MA la OT 6 CY bl C e 20 #6 .6 12 0 MG TA BL ET NC 37 09 03 01 56 28 CV 70 No Ac IL 00 -2 -2 .0 S 38 t ti OS 00 PH 05 Av ve EC 35 20 20 AR ai 90 07 08 MA la OT 6 CY bl C e 20 #6 .6 12 0 MG TA BL ET CR 00 09 03 02 30 30 CV 69 No Ac ES 31 -2 -2 .0 S 85 t ti TO 00 PH 40 Av ve R 75 20 20 AR ai 10 19 07 08 MA la 0 CY bl MG e #6 TA 12 BL 0 ET Procedures Procedure [place] [address] COMBINED COMBINED THYROID 7 PHYSICIAN PHYSICIAN STIMULATI S [place] S [place] NG HORMONE TSH COLLECTIO 31394 COMBINED COMBINED N VENOUS 7 PHYSICIAN PHYSICIAN BLOOD S LA S LA VENIPUNCT URE COMPREHEN 72768 [facility] SIVE 7 [facility] [place] [address] [facility] TROPONIN 7 [facility] QUANTITAT INC INC CIELO THER 98747 [facility] PROPH/DX 7 [facility] NJX EA INC INC SEQL IV PUSH SBST/DRUG FAC AMB A0427 [facility] EMERGENCY TRANSPORT LEVEL [address] [place] [address] [facility] LIPASE 7 [facility] INC INC ECG 28898 [facility] ROUTINE 7 [facility] ECG INC INC W/LEAST 12 LDS TRCG ONLY W/O I&R BLOOD 87303 [facility] COUNT 7 [facility] COMPLETE INC INC AUTO&AUTO DIFRNTL WBC BLOOD 71794 [facility] OCCULT 7 [facility] PEROXIDAS INC INC E ACTV QUAL FECES 1-3 [place] [address] [facility] AMYLASE 7 [facility] [place] [address] [facility] INFUSION 7 [facility] THERAPY/P INC INC ROPHYLAXI S /DX 1ST TO 1 HR THERAPEUT 92998 [facility] IC 7 [facility] INJECTION INC INC IV PUSH EACH NEW DRUG GROUND A0425 [facility] AMBULANCE PER SERVICE [facility] [address] GENE SANDERS JR ROUTINE 7 [facility] W/LEAST P 12 LDS [place] [address] COMBINED COMBINED THYROID 6 PHYSICIAN PHYSICIAN STIMULATI S LA S LA NG HORMONE TSH COLLECTIO 13720 COMBINED COMBINED N VENOUS 6 PHYSICIAN PHYSICIAN BLOOD S LA S LA VENIPUNCT URE HEPATIC 92880 COMBINED COMBINED FUNCTION 6 PHYSICIAN PHYSICIAN PANEL S LA S LA LIPID 94156 COMBINED COMBINED PANEL 6 PHYSICIAN PHYSICIAN S LA S LA LIPID 50670 COMBINED COMBINED PANEL 6 PHYSICIAN PHYSICIAN S LA S LA COLLECTIO 15494 COMBINED COMBINED N VENOUS 6 PHYSICIAN PHYSICIAN BLOOD S LA S LA VENIPUNCT URE COLLECTIO 77452 COMBINED COMBINED N VENOUS 6 PHYSICIAN PHYSICIAN BLOOD S LA S LA VENIPUNCT URE COMPREHEN 54433 COMBINED COMBINED SIVE 6 PHYSICIAN PHYSICIAN METABOLIC S LA S LA PANEL BLOOD 93684 COMBINED COMBINED COUNT 6 PHYSICIAN PHYSICIAN COMPLETE S LA S LA AUTO&AUTO DIFRNTL WBC LIPID 06988 COMBINED COMBINED PANEL 6 PHYSICIAN PHYSICIAN S LA S LA COLLECTIO 76458 COMBINED COMBINED N VENOUS 6 PHYSICIAN PHYSICIAN [place] [address] COMBINED COMBINED THYROID 6 PHYSICIAN PHYSICIAN STIMULATI S LA S LA NG HORMONE TSH NONEMERG A0120 FEDERATED FEDERATED TRNSPRT: 6 MINI-BUS TRANSPORT TRANSPORT MTN ATION SER ATION SER AREA/OTH SYS NONEMERGE A0130 FEDERATED FEDERATED NCY 5 TRANSPORT TRANSPORT TRANSPORT ATION: ATION SER ATION SER WHEELCHAI R VAN HEPATIC 10152 COMBINED COMBINED FUNCTION 5 PHYSICIAN PHYSICIAN PANEL S LA S LA LIPID 28282 COMBINED COMBINED PANEL 5 PHYSICIAN PHYSICIAN S LA S LA COLLECTIO 81367 COMBINED COMBINED N VENOUS 5 PHYSICIAN PHYSICIAN BLOOD S LA S LA VENIPUNCT URE NONEMERG A0120 FEDERATED FEDERATED TRNSPRT: 5 MINI-BUS TRANSPORT TRANSPORT MTN ATION SER ATION SER AREA/OTH SYS COLLECTIO 67157 COMBINED COMBINED N VENOUS 5 PHYSICIAN PHYSICIAN [place]LOOD [place] [address] COMBINED COMBINED THYROID 5 PHYSICIAN PHYSICIAN STIMULATI S LA S LA NG HORMONE TSH RADIOLOGI 44013 EXPRESS EXPRESS C EXAM 5 MOBILE MOBILE CHEST 2 DIAGNOSTI DIAGNOSTI VIEWS C SE C SE FRONTAL&L ATERAL BLOOD 34344 COMBINED COMBINED COUNT 5 PHYSICIAN PHYSICIAN COMPLETE S LA S LA AUTO&AUTO DIFRNTL WBC COMPREHEN 29085 COMBINED COMBINED SIVE 5 PHYSICIAN PHYSICIAN METABOLIC S LA S LA PANEL LIPID 35676 COMBINED COMBINED PANEL 5 [place] [address] COMBINED COMBINED THYROID 5 PHYSICIAN PHYSICIAN [place]IMULATI [place] [address] COMBINED COMBINED THYROID 4 PHYSICIAN PHYSICIAN [place]IMULAT[place] [address] COMBINED COMBINED THYROID 4 PHYSICIAN PHYSICIAN STIMULATI S LA S LA NG HORMONE TSH RADIOLOGI 28468 EXPRESS EXPRESS C EXAM 4 MOBILE MOBILE CHEST 2 DIAGNOSTI DIAGNOSTI VIEWS C SE C SE FRONTAL&[place] [address] [facility] THYROID 3 DIAGNOSTI DIAGNOSTI STIMULATI CS CS NG HORMONE TSH BASIC 51486 [facility] METABOLIC 3 DIAGNOSTI DIAGNOSTI [place] [address] [facility] THYROID 2 DIAGNOSTI DIAGNOSTI STIMULATI CS CS NG HORMONE TSH COMPREHEN 49055 [facility] QUE[facility] SIVE 2 DIAGNOSTI DIAGNOSTI METABOLIC CS CS PANEL SKIN TEST 01093 [facility] 2 N CO N CO [facility] INTRADERM AL COMPREHEN 93222 COMBINED COMBINED SIVE 2 PHYSICIAN PHYSICIAN METABOLIC S LA S LA PANEL LIPID 00440 COMBINED COMBINED PANEL 2 PHYSICIAN PHYSICIAN S LA S LA HEMOGLOBI 34488 COMBINED COMBINED N 2 PHYSICIAN PHYSICIAN GLYCOSYLA S LA S LA DIGNA A1C HEMOGLOBI 33706 COMBINED COMBINED N 2 PHYSICIAN PHYSICIAN GLYCOSYLA S LA S LA DIGNA A1C LIPID 29578 COMBINED COMBINED PANEL 2 PHYSICIAN PHYSICIAN S LA S LA COMPREHEN 43114 COMBINED COMBINED SIVE 2 PHYSICIAN PHYSICIAN [place] [address] [facility] TROPONIN 2 Y Y QUANT[facility]AT HOSPITAL [facility] CIELO RINGERS J7120 [facility] LACTATE 2 Y Y INFUSION [facility] UP TO [address] CC ECG [address] [facility] ROUTINE 2 Y Y ECG [facility] W/LEAST 12 LDS TRCG ONLY W/O I&R RADIOLOGI 34114 [place] NICKELS C 2 MEDICAL POLY EXAMINATI SERV ON CHEST FOUNDATIO SINGLE N VIEW FRONTAL THROMBOPL [address] [facility] ASTIN 2 Y Y TIME [facility] PARTIAL PLASMA/WH OLE BLOOD BASIC [address] [facility] METABOLIC 2 Y Y PANEL [facility] CALCIUM TOTAL AMB A0427 KEISHA KEISHA SERVICE 2 FAYETTE FAYETTE ALS [facility] EMERGENCY [facility] TRANSPORT LEVEL [address] [facility] IN TIME 2 Y Y HOSPITAL HOSPITAL BLOOD [address] [facility] COUNT 2 Y Y COMPLE[place] [address] [facility] INFUSION 2 Y Y HYDRATION [facility] INITIAL 31 MIN-1 HOUR GROUND A0425 KEISHA KEISHA MILEAGE 2 FAYETTE FAYETTE PER [facility]RB[facility] [place] [address] RADIOLOGY EMI HEAD/BRAI 2 ATT N W/O ASSOCIATE CONTRAST S OF NOTH MATERIAL ECG 64801 HEEB CHR HEEB CHR ROUTINE 2 ECG W/LEAST 12 LDS I&R ONLY OPHTH 13099 ELVIRA MIRELES, [facility] 9 VISION BRENT M XM&EVAL COMPRHNSV ESTAB PT 1/> URNLS DIP 60767 [facility] STICK/TAB LET REAGENT AUTO MICROSCOP Y LIPID 77344 [facility] PANEL 8 [facility] BILIRUBIN 24166 [facility] DIRECT 8 [facility] GENERAL 12608 [facility] [place] [facility] PANEL Encounters Encounter Start End Date Code Location Performer Type Date [facility] GENE - 7 7 [facility] OUTPATIEN INC T EMERGENCY 39606 GENE 7 7 [facility] DEPARTMEN INC T VISIT HIGH/URGE NT SEVERITY OFFICE 13704 [facility] OUTPATIEN 2 2 N CO N CO T VISIT 5 [facility] OFFICE 42962 [facility] OUTPATIEN 2 2 N CO N CO T NEW 10 [facility] EMERGENCY 04208 UNIVERSIT DEPT 2 2 Y VISIT HOSPITAL HIGH SEVERITY& THREAT [facility] UNIVERSIT - 2 [facility] EMERGENC[facility] 13204 NICK VALDEZ 2 2 MEDICAL SET DEPARTMETHODIST [facility] SERV T VISIT FOUNDATIO HIGH/URGE N NT SEVERITY OFFICE 36639 [facility] Y[facility] HARRELL 8 8 MEDICAL RM Sow T VISIT GROUP 25 MINUTES
--- OUTSIDE RECORDS SUMMARY | 2016-08-16 09:34 | External Medical Summary Rpt ---
Author Author , Organization [employer] Address Unknown Phone Unavailable Care Team Providers Care Cell Cleaner Name Role Phone RM HARRELL, Unavailable Unavailable RM HARRELL [facility] Unavailable Unavailable SERVICE, [facility] Unavailable Unavailable SERVICE, [facility] Unavailable Unavailable [place], [facility] Unavailable [facility]available [place], [facility] [place] [facility], Unavailable Unavailable [facility] Unavailable Unavailable [facility]NOSTIC [facility], [facility] Unavailable Unavailable [facility], [facility] Unavailable Unavailable TRANSPORTATION SER, [facility] Unavailable Unavailable INC, [facility] Unavailable [facility]available HOSPITAL P, [facility] P HEEB CH[facility], [facility] Unavailable [facility]available [facility], Unavailable Unavailable [facility] MARILYN DICKSON, MARILYN DICKSON Unavailable Unavailable KEISHA FAYETTE [facility] Unavailable Unavailable [place], KEISHA FAYETTE [facility] EMI ATT, EMI Unavailable Unavailable ATT NICKELS POLY, NICKELS Unavailable Unavailable [facility] Un[facility] Un[facility], [facility] Un[facility] Unavailable [facility], [facility], Unavailable Unavailable [facility], Unavailable Unavailable [facility] Unavailable Unavailable [facility], [facility] BRENT MIRELES, Unavailable Unavailable BRENT MIRELES [facility], Unavailable Unavailable [facility], Unavailable Unavailable [facility] Purpose Continuity of Care Document - 07-12-2007 through 2016 Problems Code Diagnosis DOS Provider Status E039 HYPOTHYROID 06-19-2016 [facility] ISM PHYSICIANS UNSPECIFIED LA E119 TYPE 2 04-20-2016 [facility] DIABETES [facility] P WITHOUT COMPLICATIO NS I2510 [facility] [place] 04-20-2016 [facility] CORONARY [facility] ARTERY W/O HOSPITAL P ANGINA PECTORIS R1013 EPIGASTRIC 04-20-[address] [facility] [address] [facility] P R1110 VOMITING 04-20-2016 [facility] UNSPECIFIED AMBULANCE SERVICE R12 HEARTBURN 04-20-2016 [facility] AMBULANCE SERVICE [id number] PERSONAL 04-20-2016 [facility] P DEPENDENCE E785 HYPERLIPIDE 02-28-2016 COM[facility]ED STEFFEN PHYSICIANS UNSPECIFIED LA D649 ANEMIA 09-05-2015 COMBINED UNSPECIFIED PHYSICIANS LA I10 ESSENTIAL 09-05-2015 COMBINED PRIMARY PHYSICIANS HYPERTENSIO LA N R69 ILLNESS 04-25-2015 [facility]ATED UNSPECIFIED TRANSPORTAT ION SER 18582 NONSPEC 11-23-2014 [facility] RE[facility] TUBERCULIN DIAGNOSTIC SKIN TEST SE W/O ACTIVE TB 2724 OTHER AND 08-31-2014 COMBINED UNSPECIFIED PHYSICIANS LA HYPERLIPIDE STEFFEN 2449 UNSPECIFIED 06-29-2014 COMBINED PHYSICIANS HYPOTHYROID LA ISM 78383 DIAB W/O 03-29-2012 [facility] COMP TYPE [facility]AGNOSTICS II/UNS NOT STATED UNCNTRL 39145 OTHER 03-29-2012 [facility] FATIGUE V741 SCREENING 01-23-2012 [facility] EXAMINATION [facility] PULMONARY TUBERCULOSI S V5869 LONG-TERM 12-17-2011 COMBINED (CURRENT) PHYSICIANS USE OF LA OTHER MEDICATIONS 4293 CARDIOMEGAL 05-29-2011 [facility] 5180 PULMONARY 05-29-2011 [facility] 14755 CHEST PAIN 05-29-2011 [facility] 46587 ACUTE 05-27-2011 [facility] DUE TO OF [facility] SOLAR RADIATION 3671 MYOPIA 08-11-2008 ELVIRA VISION 2720 PURE 09-22-2007 [facility] TEROLEMIA 53863 ESOPHAGEAL 09-22-2007 [facility] 7823 EDEMA 09-22-2007 [facility] 7962 ELEVATED BP 09-22-2007 [facility] WITHOUT DX HYPERTENSIO N E86.0 DEHYDRATION [...] M #6 TA 12 BL 0 ET PA 37 06 12 05 56 28 CV [...] M #6 TA 12 BL 0 ET PA 37 06 10 04 56 28 CV [...] M #6 TA 12 BL 0 ET PA 37 06 09 03 56 28 CV 73 BA Ac IL 00 -0 -2 .0 S 31 NK ti OS 00 4- 6- 00 PH 06 S ve EC 45 20 20 AR DA 50 08 08 MA OT 2 CY D C M 20 #6 .6 12 0 MG TA BL ET PA 37 06 08 02 56 28 CV [...] M #6 TA 12 BL 0 ET PA 37 06 07 01 56 28 CV 73 BA Ac IL 00 -0 -1 .0 S 31 NK ti OS 00 4- 7- 00 PH 06 S ve EC 45 20 20 AR DA 50 08 08 MA OT 2 CY D C M 20 #6 .6 12 0 MG TA BL ET PA 37 06 07 00 56 28 CV [...] M #6 TA 12 BL 0 ET PA 37 09 05 05 56 28 CV [...] e #6 TA 12 BL 0 ET PA 37 09 04 04 56 28 CV [...] e #6 TA 12 BL 0 ET PA 37 09 04 03 56 28 CV [...] e #6 TA 12 BL 0 ET PA 37 09 03 02 56 28 CV 70 No Ac IL 00 -2 -2 .0 S 38 t ti OS 00 PH 05 Av ve EC 35 20 20 AR ai 90 07 08 MA la OT 6 CY bl C e 20 #6 .6 12 0 MG TA BL ET PA 37 09 03 01 56 28 CV [...] [place] [address] COMBINED COMBINED THYROID 7 PHYSICIAN PHYSICIAN STIMULATI S LA S LA NG HORMONE TSH COLLECTIO 11159 COMBINED COMBINED N VENOUS 7 PHYSICIAN PHYSICIAN BLOOD S LA S LA VENIPUNCT URE COMPREHEN 75507 GENE [facility] SIVE 7 [facility] [place] [address] [facility] M[facility] TROPONIN 7 [facility] QUANTITAT INC INC CIELO THER 91344 GENE [facility] PROPH/DX 7 [facility] NJX EA INC INC SEQL IV PUSH SBST/DRUG FAC AMB A0427 [facility] SERVICE 7 AMBULANCE AMBULANCE ALS SERVICE SERVICE EMERGENCY TRANSPORT LEVEL 1 [place] [address] [facility] LIPASE 7 [facility] INC INC ECG 45528 [facility] ROUTINE 7 [facility] ECG INC INC W/LEAST 12 LDS TRCG ONLY W/O I&R BLOOD 29664 [facility] COUNT 7 [facility] COMPLETE INC INC AUTO&AUTO DIFRNTL WBC BLOOD 55350 [facility] OCCULT 7 [facility] PEROXIDAS INC INC E ACTV QUAL FECES 1-3 [place] [address] G[facility] AMYLASE 7 [facility] [place] [address] G[place] [facility] INFUSION 7 [facility] THERAPY/P INC INC ROPHYLAXI S /DX 1ST TO 1 HR THERAPEUT 64713 [facility] IC 7 [facility] INJECTION INC INC IV PUSH EACH NEW DRUG GROUND A0425 [facility]ANCE AMBULANCE PER [facility] GENE SANDERS JR ROUTINE 7 [facility] W/LEAST P 12 LDS I&[place] [address] COMBINED COMBINED THYROID 6 PHYSICIAN PHYSICIAN STIMULATI S LA S LA NG HORMONE TSH COLLECTIO 83471 COMBINED COMBINED N VENOUS 6 PHYSICIAN PHYSICIAN BLOOD S LA S LA VENIPUNCT URE HEPATIC 79550 COMBINED COMBINED FUNCTION 6 PHYSICIAN PHYSICIAN PANEL S LA S LA LIPID 46102 COMBINED COMBINED PANEL 6 PHYSICIAN PHYSICIAN S LA S LA LIPID 56919 COMBINED COMBINED PANEL 6 PHYSICIAN PHYSICIAN S LA S LA COLLECTIO 30341 COMBINED COMBINED N VENOUS 6 PHYSICIAN PHYSICIAN BLOOD S LA S LA VENIPUNCT URE COLLECTIO 93355 COMBINED COMBINED N VENOUS 6 PHYSICIAN PHYSICIAN BLOOD S LA S LA VENIPUNCT URE COMPREHEN 89710 COMBINED COMBINED SIVE 6 PHYSICIAN PHYSICIAN METABOLIC S LA S LA PANEL BLOOD 10467 COMBINED COMBINED COUNT 6 PHYSICIAN PHYSICIAN COMPLETE S LA S LA AUTO&AUTO DIFRNTL WBC LIPID 87730 COMBINED COMBINED PANEL 6 PHYSICIAN PHYSICIAN S LA S LA COLLECTIO 46679 COMBINED COMBINED N VENOUS 6 PHYSICIAN PHYSICIAN [place] [address] COMBINED COMBINED THYROID 6 PHYSICIAN PHYSICIAN STIMULATI S LA S LA NG HORMONE TSH NONEMERG A0120 FEDERATED FEDERATED TRNSPRT: 6 MINI-BUS TRANSPORT TRANSPORT MTN ATION SER ATION SER AREA/OTH SYS NONEMERGE A0130 FEDERATED FEDERATED NCY 5 TRANSPORT TRANSPORT TRANSPORT ATION: ATION SER ATION SER WHEELCHAI R VAN HEPATIC 04159 COMBINED COMBINED FUNCTION 5 PHYSICIAN PHYSICIAN PANEL S LA S LA LIPID 43930 COMBINED COMBINED PANEL 5 PHYSICIAN PHYSICIAN S LA S LA COLLECTIO 73954 COMBINED COMBINED N VENOUS 5 PHYSICIAN PHYSICIAN BLOOD S LA S LA VENIPUNCT URE NONEMERG A0120 FEDERATED FEDERATED TRNSPRT: 5 MINI-BUS TRANSPORT TRANSPORT MTN ATION SER ATION SER AREA/OTH SYS COLLECTIO 31856 COMBINED COMBINED N VENOUS 5 PHYSICIAN PHYSICIAN BLOOD [place] [address] COMBINED COMBINED THYROID 5 PHYSICIAN PHYSICIAN STIMULATI S LA S LA NG HORMONE TSH RADIOLOGI 18340 EXPRESS EXPRESS C EXAM 5 MOBILE MOBILE CHEST 2 DIAGNOSTI DIAGNOSTI VIEWS C SE C SE FRONTAL&L ATERAL BLOOD 93778 COMBINED COMBINED COUNT 5 PHYSICIAN PHYSICIAN COMPLETE S LA S LA AUTO&AUTO DIFRNTL WBC COMPREHEN 70194 COMBINED COMBINED SIVE 5 PHYSICIAN PHYSICIAN METABOLIC S LA S LA PANEL LIPID 78271 COMBINED COMBINED PANEL 5 [place] [address] COMBINED COMBINED THYROID 5 PHYSICIAN PHYSICIAN STIMULATI [place] [address] COMBINED COMBINED THYROID 4 PHYSICIAN PHYSICIAN STIMULATI [place] [address] COMBINED COMBINED THYROID 4 PHYSICIAN PHYSICIAN STIMULATI S LA S LA NG HORMONE TSH RADIOLOGI 91218 EXPRESS EXPRESS C EXAM 4 MOBILE MOBILE CHEST 2 DIAGNOSTI DIAGNOSTI VIEWS C SE C SE FRONTAL&[place] [address] [facility] THYROID 3 DIAGNOSTI DIAGNOSTI STIMULATI CS CS NG HORMONE TSH BASIC 93013 [facility] QUEST METABOLIC 3 DIAGNOSTI DIAGNOSTI [place] [address] [facility] THYROID 2 DIAGNOSTI DIAGNOSTI STIMULATI CS CS NG HORMONE TSH COMPREHEN 46224 [facility] QUEST SIVE 2 DIAGNOSTI DIAGNOSTI METABOLIC CS CS PANEL SKIN TEST 68426 [facility] P[facility] 2 N CO N CO TUBERCULO [facility] C[facility] INTRADERM AL COMPREHEN 62789 COMBINED COMBINED SIVE 2 PHYSICIAN PHYSICIAN METABOLIC S LA S LA PANEL LIPID 85233 COMBINED COMBINED PANEL 2 PHYSICIAN PHYSICIAN S LA S LA HEMOGLOBI 27745 COMBINED COMBINED N 2 PHYSICIAN PHYSICIAN GLYCOSYLA S LA S LA DIGNA A1C HEMOGLOBI 55273 COMBINED COMBINED N 2 PHYSICIAN PHYSICIAN GLYCOSYLA S LA S LA DIGNA A1C LIPID 92479 COMBINED COMBINED PANEL 2 PHYSICIAN PHYSICIAN S LA S LA COMPREHEN 90738 COMBINED COMBINED SIVE 2 PHYSICIAN PHYSIC[place] [address] [facility] TROPONIN 2 Y Y [facility] CIELO RINGERS J7120 [facility] LACTATE 2 Y Y INFUSION [facility] UP TO 1000 CC ECG 45813 [facility] ROUTINE 2 Y Y ECG [facility] W/LEAST 12 LDS TRCG ONLY W/O I&R RADIOLOGI 24154 [place] NICKELS C 2 MEDICAL POLY EXAMINATI SERV ON CHEST FOUNDATIO SINGLE N VIEW FRONTAL THROMBOPL 56068 [facility] ASTIN 2 Y Y TIME [facility] PARTIAL PLASMA/WH OLE BLOOD BASIC 32765 [facility] METABOLIC 2 Y Y PANEL [facility] CALCIUM TOTAL AMB A0427 KEISHA KEISHA SERVICE 2 FAYETTE FAYETTE ALS URBAN URBAN EMERGENCY COGOVT COGOVT TRANSPORT LEVEL 1 PROTHROMB 54137 [facility] IN TIME 2 Y Y HOSPITAL HOSPITAL BLOOD 85056 [facility] COUNT 2 Y Y COMPLETE [facility] [place] [address] [facility] INFUSION 2 Y Y HYDRATION [facility] INITIAL 31 MIN-1 HOUR GROUND A0425 KEISHA KEISHA MILEAGE 2 FAYETTE FAYETTE PER URBAN [place] [address] RADIOLOGY EMI HEAD/BRAI 2 ATT N W/O ASSOCIATE CONTRAST S OF NOTH MATERIAL ECG 70992 HEEB CHR HEEB CHR ROUTINE 2 ECG W/LEAST 12 LDS I&R ONLY OPHTH 77615 ELVIRA MIRELES, [facility] 9 VISION BRENT M XM&EVAL COMPRHNSV ESTAB PT 1/> URNLS DIP 02006 [facility] STICK/TAB LET REAGENT AUTO MICROSCOP Y LIPID 13921 [facility] PANEL 8 [facility] BILIRUBIN 66212 [facility] DIRECT 8 [facility] GENERAL 41260 [facility]ALTH 8 [place] [facility] PANEL Encounters Encounter Start End Date Code Location Performer Type Date [facility] GENE - 7 7 [facility] OUTPATIEN INC T EMERGENCY 59000 GENE 7 7 [facility] DEPARTMEN INC T VISIT HIGH/URGE NT SEVERITY OFFICE 66213 [facility] OUTPATIEN 2 2 N CO N CO T VISIT 5 [facility] OFFICE 99475 [facility] OUTPATIEN 2 2 N CO N CO T NEW 10 [facility] EMERGENCY 02364 UNIVERSIT DEPT 2 2 Y VISIT HOSPITAL HIGH SEVERITY& THREAT [facility]ERS[facility] NICK VALDEZ 2 2 [facility] VISIT FOUNDATIO HIGH/URGE N NT SEVERITY OFFICE 13763 [facility] Y[facility]UF HARRELL 8 8 MEDICAL RM Sow T VISIT GROUP 25 MINUTES
--- OUTSIDE RECORDS SUMMARY | 2016-08-16 09:38 | External Medical Summary Rpt ---
Author Author , Organization [employer] Address Unknown Phone Unavailable Care Team Providers Care Electrical Apprentice Name Role Phone RM HARRELL, Unavailable Unavailable RM HARRELL [facility] Unavailable Unavailable SERVICE, [facility] Unavailable Unavailable SERVICE, [facility] Unavailable Unavailable [place], [facility] Unavailable Unavailable [place], [facility] [place] [id number], Unavailable Unavailable [id number] Unavailable Unavailable DIAGNOSTIC SE, [facility] Unavailable Unavailable DI[facility]NOSTIC [facility], [facility] Unavailable Unavailable TRANSPORTATION SER, [facility] Unavailable Unavailable INC, [facility] Unavailable [facility]available HOSPITAL P, [facility], [facility] Unavailable Unavailable [facility], Unavailable Unavailable [facility] MARILYN DICKSON, MARILYN DICKSON Unavailable Unavailable [facility] Un[facility] [place], [facility], [facility] EMI ATT, EMI Unavailable Unavailable ATT NICKELS POLY, NICKELS Unavailable Unavailable POLY [facility] Un[facility] Unavailable [facility]available [facility], [facility], Unavailable Unavailable [facility], Unavailable Unavailable [facility] Unavailable Unavailable [facility], [facility] BRENT MIRELES, Unavailable Unavailable BRENT MIRELES [facility], Unavailable Unavailable [facility], Unavailable Unavailable [facility] Purpose Continuity of Care Document - 07-12-2007 through 2016 Problems Code Diagnosis DOS Provider Status E039 HYPOTHYROID 06-19-2016 [facility] UNSPECIFIED [place] E119 TYPE 2 04-20-2016 [place] DIABETES [facility] P WITHOUT COMPLICATIO NS I2510 [facility] [place] 04-20-2016 [place] CORONARY [facility] ARTERY W/O HOSPITAL P ANGINA PECTORIS R1013 EPIGASTRIC 04-20-2016 [facility] P R1110 VOMITING 04-20-2016 [facility] UNSPECIFIED AMBULANCE SERVICE R12 HEART[place]URN 04-20-2016 [facility] AMBULANCE SERVICE [id number] PERSONAL 04-20-[address] [facility] P DEPENDENCE E785 HYPERLIPIDE 02-28-2016 [facility] STEFFEN PHYS[facility]IANS UNSPECIFIED LA D649 ANEMIA 09-05-2015 COMBINED UNSPECIFIED PHYSICIANS LA I10 ESSENTIAL 09-05-2015 [facility] PRIMARY PHYSICI[facility] HYPERTENSIO LA N R69 ILLNESS 04-25-2015 [facility]ATED UNSPECIFIED TRANSPORTAT ION SER 54950 NONSPEC 11-23-2014 [facility] TUBERCULIN DIAGNOSTIC SKIN TEST SE W/O ACTIVE TB 2724 OTHER AND 08-31-2014 COMBINED UNSPECIFIED PHYSICIANS LA HYPERLIPIDE STEFFEN 2449 UNSPECIFIED 06-29-2014 [facility] HYPOTHYROID LA ISM 03282 DIAB W/O 03-29-2012 [facility] II/UNS NOT STATED UNCNTRL 17486 OTHER 03-29-2012 [facility] FATIGUE V741 SCREENING 01-23-2012 [facility] [employer] FOR [place] PULMONARY TUBERCULOSI S V5869 LONG-TERM 12-17-2011 COMBINED (CURRENT) PHYSICIANS USE OF LA OTHER MEDICATIONS 4293 CARDIOMEGAL 05-29-2011 [employer] MEDICAL Y SERV [facility] 5180 PULMONARY 05-29-2011 [facility] MEDICAL COLLAPSE [facility] 41202 CHEST PAIN 05-29-2011 [facility] 66295 ACUTE 05-27-2011 [facility] DUE TO OF [facility] SOLAR RADIATION 3671 MYOPIA 08-11-2008 [facility] 2720 PURE 09-22-2007 [facility] [employer] TEROLEMIA 43567 ESOPHAGEAL 09-22-2007 [facility] 7823 EDEMA 09-22-2007 [facility] [place] [facility] 7962 ELEVATED BP 09-22-2007 [facility] [place] [employer] WITHOUT DX HYPERTENSIO N Medications Na ND Rx Da Fi Fi [...] D CY DR 40 MG TA B SI 68 03 04 30 30 00 ME Ac MV 18 -1 -1 .0 00 D ti 00 4- 4- 00 13 CA ve TA 47 20 20 88 RE TI 90 17 17 23 N 2 11 PH 20 AR MA MG CY TA BL ET ME 69 03 04 30 30 00 ME Ac LO 09 -1 -1 .0 00 D ti XI 70 4- 4- 00 13 CA ve CA 15 20 20 88 RE M 90 17 17 23 15 7 02 PH AR MG MA CY TA BL ET FI 30 03 04 90 30 00 [...] AR MA MG CY TA BL ET SE 68 03 04 45 30 00 ME Ac RT 18 -0 -0 .0 00 D ti RA 00 3- 7- 00 13 CA ve LI 35 [...] D CY DR 40 MG TA B SM 10 02 03 90 30 00 ME Ac 93 -1 -1 .0 00 D ti FI 90 0- 7- 00 13 CA ve SH 75 20 20 72 RE 64 17 17 82 OI 4 51 PH L AR 1, MA 00 CY 0 MG SO FT GE L OL 00 02 03 30 30 00 [...] MA CY TA BL ET SE 68 02 03 45 30 00 [...] -0 .0 00 D ti TH 81 3 00 13 CA ve YR 80 20 20 68 RE OX 51 17 17 09 IN 0 39 PH E AR 75 MA CY MC G TA BL ET PA 00 01 02 30 30 00 ME Ac NT 09 -2 -2 .0 00 D ti OP 30 0- 4 00 13 CA ve RA 01 20 [...] -1 .0 00 D ti XI 70 4 7- 00 13 CA ve CA 15 [...] LL C TA BL ET PA 00 12 01 30 30 00 ME Ac NT 09 -2 -2 .0 00 D ti OP 30 1- 0- 00 13 CA ve RA 01 20 20 47 RE ZO 29 16 17 57 LE 8 00 PH AR SO MA D CY DR LL 40 C MG TA B OL 00 12 01 30 30 00 [...] MG CY TA LL BL C ET FI 00 12 01 90 30 00 [...] MG LL C TA BL ET PA 66 08 06 0 30 [...] 0. D 41 NO ti ZA 10 9- 00 CA 15 LD ve PI 16 20 20 0 RE 61 NE 83 14 15 RI 0 PH CH 20 AR AR MA D MG CY W TA LL BL C ET AZ 00 06 06 0 60 5 [...] PS C UL E ME 68 08 06 0 30 30 ME 11 AR Ac LO 38 -2 -2 0. D 39 NO ti XI 20 1- 3- 00 CA 57 LD ve CA 05 20 20 0 RE 78 M 10 14 15 RI 15 5 PH CH AR AR MG MA D CY W TA BL LL ET C LE 00 09 06 0 15 30 ME 11 AR Ac VO 52 -2 -2 0. D 39 NO ti TH 71 3- 3- 00 CA 57 LD ve YR 34 20 20 0 RE 79 OX 31 14 15 RI IN 0 PH CH E AR AR 75 MA D CY W MC G LL TA C BL ET SE 59 08 06 0 45 30 [...] 33 NO ti ZA 10 1- 1- 00 CA 25 LD ve PI 16 20 20 0 RE 72 NE 83 14 15 RI 0 PH CH 20 AR AR MA D MG CY W TA LL BL C ET PA 00 08 06 0 30 30 ME 11 AR Ac NT 00 -2 -0 0. D 33 NO ti OP 80 1- 1- 00 CA 25 LD ve RA 60 20 20 0 RE 71 ZO 70 14 15 RI LE 1 PH CH AR AR SO MA D D CY W DR LL 40 C MG TA B FI 00 05 05 0 60 30 ME 11 AR Ac SH 90 -2 -2 0. D 31 NO ti 44 7- 7- 00 CA 75 LD ve OI 04 20 20 0 RE 06 L 36 15 15 RI 1, 0 PH CH 00 AR AR 0 MA D MG CY W CA LL PS C UL E LE 00 09 05 0 15 30 ME 11 AR Ac VO 52 -2 -2 0. D 31 NO ti TH 71 3- 6- 00 CA 43 LD ve YR 34 20 20 0 RE 35 OX 31 14 15 RI IN 0 PH CH E AR AR 75 MA D CY W MC G LL TA C BL ET ME 68 08 05 0 30 30 ME 11 AR Ac LO 38 -2 -2 0. D 31 NO ti XI 20 1- 6- 00 CA 43 LD ve CA 05 20 20 0 RE 34 M 10 14 15 RI 15 5 PH CH AR AR MG MA D CY W TA BL LL ET C SE 59 08 05 0 45 30 ME 11 AR Ac RT 76 -2 -0 0. D 24 NO ti RA 24 1- 6- 00 CA 42 LD ve LI 91 20 20 0 RE 09 NE 00 14 15 RI 5 PH CH HC AR AR L MA D 10 CY W 0 MG LL C TA BL ET PA 00 08 05 0 30 [...] C MG TA B OL 55 08 05 0 30 30 ME 11 AR Ac AN 11 -2 -0 0. D 23 NO ti ZA 10 1- 4- 00 CA 56 LD ve PI 16 20 20 0 RE 12 NE 83 14 15 RI 0 PH CH 20 AR AR MA D MG CY W TA LL BL C ET LE 00 09 04 0 15 30 ME 11 AR Ac VO 52 -2 -3 0. D 22 NO ti TH 71 3- 0- 00 CA 64 LD ve YR 34 20 20 0 RE 00 OX 31 14 15 RI IN 0 PH CH E AR AR 75 MA D CY W MC G LL TA C BL ET ME 68 08 04 0 30 30 ME 11 AR Ac LO 38 -2 -3 0. D 22 NO ti XI 20 1- 0- 00 CA 63 LD ve CA 05 20 20 0 RE 98 M 10 14 15 RI 15 5 PH CH AR AR MG MA D CY W TA BL LL ET C SE 59 08 04 0 45 30 [...] C MG TA B LE 00 09 03 0 15 30 [...] BL LL ET C SE 59 08 03 0 45 30 [...] TA C BL ET ME 68 08 10 0 30 [...] C TA BL ET OL 55 08 10 0 30 30 ME 10 AR Ac AN 11 -2 -1 0. D 60 NO ti ZA 10 1- 6- 00 CA 59 LD ve PI 16 20 20 0 RE 15 NE 83 14 14 RI 0 PH CH 20 AR AR MA D MG CY W TA LL BL C ET PA 00 08 10 0 30 [...] .0 D 51 NO ti TH 71 1- 7- 00 CA 98 LD ve YR 34 20 20 RE 83 OX 21 14 14 RI IN 0 PH CH E AR AR 50 MA D CY W MC G LL TA C BL ET PA 00 08 09 0 30 30 ME 10 AR Ac NT 00 -2 -1 0. D 51 NO ti OP 80 1- 7- 00 CA 98 LD ve RA 60 20 20 0 RE 84 ZO 70 14 14 RI LE 1 PH CH AR AR SO MA D D CY W DR LL 40 C MG TA B OL 55 08 09 0 30 30 ME 10 AR Ac AN 11 -2 -1 0. D 51 NO ti ZA 10 1- 7- 00 CA 98 LD ve PI 16 20 20 0 RE 81 NE 83 14 14 RI 0 PH CH 20 AR AR MA D MG CY W TA LL BL C ET SE 59 08 09 0 45 30 ME 10 AR Ac RT 76 -2 -1 0. D 51 NO ti RA 24 1- 7- 00 CA 98 LD ve LI 91 20 20 0 RE 80 NE 00 14 14 RI 5 PH CH HC AR AR L MA D 10 CY W 0 MG LL C TA BL ET ME 68 08 09 0 30 30 ME 10 AR Ac LO 38 -2 -1 0. D 51 NO ti XI 20 1- 7- 00 CA 98 LD ve CA 05 20 [...] M #6 TA 12 BL 0 ET MD 37 06 12 05 56 28 CV 73 BA Ac IL 00 -0 -0 .0 S 31 NK ti OS 00 4- 4- 00 PH 06 S ve EC 45 [...] M #6 TA 12 BL 0 ET MD 37 06 10 04 56 28 CV [...] M #6 TA 12 BL 0 ET MD 37 06 09 03 56 28 CV [...] M #6 TA 12 BL 0 ET MD 37 06 08 02 56 28 CV 73 BA Ac IL 00 -0 -2 .0 S 31 NK ti OS 00 4- 8- 00 PH 06 S ve EC 45 20 20 AR DA 50 08 08 MA OT 2 CY D C M 20 #6 .6 12 0 MG TA BL ET MD 37 06 07 01 56 28 CV 73 BA Ac IL 00 -0 -1 .0 S 31 NK ti OS 00 4- 7- 00 PH 06 S ve EC 45 20 20 AR DA 50 08 08 MA OT 2 CY D C M 20 #6 .6 12 0 MG TA BL ET CR 00 06 07 01 30 30 CV 73 BA Ac ES 31 -0 -1 .0 S 37 NK ti TO 00 4- 7- 00 PH 03 S ve R 75 20 20 AR DA 10 19 08 08 MA 0 CY D MG M #6 TA 12 BL 0 ET CR 00 06 07 00 30 30 CV 73 BA Ac ES 31 -0 -0 .0 S 37 NK ti TO 00 4- 3- 00 PH 03 S ve R 75 20 20 AR DA 10 19 08 08 MA 0 CY D MG M #6 TA 12 BL 0 ET MD 37 06 07 00 56 28 CV 73 BA Ac IL 00 -0 -0 .0 S 31 NK ti OS 00 4- 3- 00 PH 06 S ve EC 45 20 20 AR DA 50 08 08 MA OT 2 CY D C M 20 #6 .6 12 0 MG TA BL ET CR 00 05 05 00 30 30 CV 72 BA Ac ES 31 -1 -2 .0 S 95 NK ti TO 00 5- 2- 00 PH 70 S ve R 75 20 20 AR DA 10 19 08 08 MA 0 CY D MG M #6 TA 12 BL 0 ET MD 37 09 05 05 56 28 CV 70 No Ac IL 00 -2 -2 .0 S 38 t ti OS 00 6- 2- 00 PH 05 Av ve EC 45 [...] e #6 TA 12 BL 0 ET MD 37 09 04 04 56 28 CV 70 No Ac IL 00 -2 -2 .0 S 38 t ti OS 00 PH 05 Av ve EC 45 20 20 AR ai 50 07 08 MA la OT 2 CY bl C e 20 #6 .6 12 0 MG TA BL ET MD 37 09 04 03 56 28 CV 70 No Ac IL 00 -2 -1 .0 S 38 t ti OS 00 7 PH 05 Av ve EC 45 20 20 AR ai 50 07 08 MA la OT 2 CY bl C e 20 #6 .6 12 0 MG TA BL ET CR 00 09 04 04 30 30 CV 69 No Ac ES 31 -2 -1 .0 S 85 t ti TO 00 7 PH 40 Av ve R 75 20 20 AR ai 10 19 07 08 MA la 0 CY bl MG e #6 TA 12 BL 0 ET MD 37 09 03 02 56 28 CV [...] e #6 TA 12 BL 0 ET MD 37 09 03 01 56 28 CV 70 No Ac IL 00 -2 -2 .0 S 38 t ti OS 00 00 PH 05 Av ve EC 35 [...] [place] [address] COMBINED COMBINED THYROID 7 PHYSICIAN PHYSICIAN STIMULATI S LA S LA NG HORMONE TSH COLLECTIO 54413 COMBINED COMBINED N VENOUS 7 PHYSICIAN PHYSICIAN [place] [address] [facility] LIPASE [facility] INC INC ECG 51403 G[facility] ROUTINE [facility] ECG INC INC W/LEAST 12 LDS TRCG ONLY W/O I&R THER 43860 [facility] PROPH/DX 7 [facility] NJX EA INC INC SEQL IV PUSH SBST/DRUG FAC AMB A0427 [facility] SERVICE 7 AMBULANCE AMBULANCE ALS SERVICE SERVICE [place]ERG[place]SP[place] 1 [place] [address] [facility] INFUSION 7 [facility] THERAPY/P INC INC ROPHYLAXI S /DX 1ST TO 1 HR THERAPEUT 15079 G[facility] IC 7 [facility] INJECTION INC INC IV PUSH EACH NEW DRUG GROUND A0425 [facility] MILEAGE 7 AMBULANCE AMBULANCE PER SERVICE SERVICE STATUTE MILE ECG 07481 [facility] JR ROUTINE 7 [facility] W/LEAST P 12 LDS I&R ONLY COMPREHEN 78376 [facility] SIVE 7 [facility] [place] [address] [facility] AMYLASE 7 [facility] INC INC BLOOD 29066 G[facility] OCCULT 7 [facility] PEROXIDAS INC INC E ACTV QUAL FECES 1-3 [place] [address] [facility] TROPONIN 7 [facility] QUANTITAT INC INC CIELO BLOOD 84089 [facility] COUNT 7 [facility] COMPLETE INC INC AUTO&[place] [address] COMBINED COMBINED THYROID 6 PHYSICIAN PHYSICIAN STIMULATI S LA S LA NG HORMONE TSH COLLECTIO 79008 COMBINED COMBINED N VENOUS 6 PHYSICIAN PHYSICIAN BLOOD S LA S LA VENIPUNCT URE HEPATIC 80917 COMBINED COMBINED FUNCTION 6 PHYSICIAN PHYSICIAN PANEL S LA S LA LIPID 19897 COMBINED COMBINED PANEL 6 PHYSICIAN PHYSICIAN S LA S LA LIPID 29579 COMBINED COMBINED PANEL 6 PHYSICIAN PHYSICIAN S LA S LA COLLECTIO 07946 COMBINED COMBINED N VENOUS 6 PHYSICIAN PHYSICIAN BLOOD S LA S LA VENIPUNCT URE COMPREHEN 84020 COMBINED COMBINED SIVE 6 PHYSICIAN PHYSICIAN METABOLIC S LA S LA PANEL LIPID 51201 COMBINED COMBINED PANEL 6 PHYSICIAN PHYSICIAN S LA S LA BLOOD 56119 COMBINED COMBINED COUNT 6 PHYSICIAN PHYSICIAN COMPLETE S LA S LA AUTO&AUTO DIFRNTL WBC COLLECTIO 88776 COMBINED COMBINED N VENOUS 6 PHYSICIAN PHYSICIAN BLOOD S LA S LA VENIPUNCT URE COLLECTIO 21958 COMBINED COMBINED N VENOUS 6 PHYSICIAN PHYSICIAN [place] [address] COMBINED COMBINED THYROID 6 PHYSICIAN PHYSICIAN STIMULATI S LA S LA NG HORMONE TSH NONEMERG A0120 FEDERATED FEDERATED TRNSPRT: 6 MINI-BUS TRANSPORT TRANSPORT MTN ATION SER ATION SER AREA/OTH SYS NONEMERGE A0130 FEDERATED FEDERATED NCY 5 TRANSPORT TRANSPORT TRANSPORT ATION: ATION SER ATION SER WHEELCHAI R VAN COLLECTIO 84057 COMBINED COMBINED N VENOUS 5 PHYSICIAN PHYSICIAN BLOOD S LA S LA VENIPUNCT URE HEPATIC 11926 COMBINED COMBINED FUNCTION 5 PHYSICIAN PHYSICIAN PANEL S LA S LA LIPID 33536 COMBINED COMBINED PANEL 5 PHYSICIAN PHYSICIAN S LA S LA NONEMERG A0120 FEDERATED FEDERATED TRNSPRT: 5 MINI-BUS TRANSPORT TRANSPORT MTN ATION SER ATION [place] AREA/[place] [address] COMBINED COMBINED THYROID 5 PHYSICIAN PHYSICIAN STIMULATI S LA S LA NG HORMONE TSH COLLECTIO 31704 COMBINED COMBINED N VENOUS 5 PHYSICIAN PHYSICIAN BLOOD S LA S LA VENIPUNCT URE RADIOLOGI 06413 EXPRESS EXPRESS C EXAM 5 MOBILE MOBILE CHEST 2 DIAGNOSTI DIAGNOSTI VIEWS C SE C SE FRONTAL&L ATERAL BLOOD 21904 COMBINED COMBINED COUNT 5 PHYSICIAN PHYSICIAN COMPLETE S LA S LA AUTO&AUTO DIFRNTL WBC LIPID 40487 COMBINED COMBINED PANEL 5 PHYSICIAN PHYSICIAN S LA S LA COMPREHEN 54915 COMBINED COMBINED SIVE 5 PHYSICIAN PHYSICIAN [place] [address] COMBINED COMBINED THYROID 5 PHYSICIAN PHYSICIAN STIMULATI [place] [address] COMBINED COMBINED THYROID 4 PHYSICIAN PHYSICIAN STIMULATI [place] [address] COMBINED COMBINED THYROID 4 PHYSICIAN PHYSICIAN STIMULATI S LA S LA NG HORMONE TSH RADIOLOGI 82272 EXPRESS EXPRESS C EXAM 4 MOBILE MOBILE CHEST 2 DIAGNOSTI DIAGNOSTI VIEWS C SE C SE [place]ONTAL&[place] [address] [facility] THYROID 3 DIAGNOSTI DIAGNOSTI STIMULATI CS CS NG HORMONE TSH BASIC 41186 [facility] METABOLIC 3 DIAGNOSTI DIAGNOSTI PANEL CS CS CALCIUM TOTAL COMPREHEN 51113 [facility] SIVE 2 DIAGNOSTI DIAGNOST[place] [address] [facility] THYROID 2 DIAGNOSTI DIAGNOSTI STIMULATI CS CS NG HORMONE TSH SKIN TEST 91316 [facility] 2 N CO N CO [facility] CENTER INTRADERM AL COMPREHEN 96664 COMBINED COMBINED SIVE 2 PHYSICIAN PHYSICIAN METABOLIC S LA S LA PANEL LIPID 15964 COMBINED COMBINED PANEL 2 PHYSICIAN PHYSICIAN S LA S LA HEMOGLOBI 18582 COMBINED COMBINED N 2 PHYSICIAN PHYSICIAN GLYCOSYLA S LA S LA DIGNA A1C LIPID 89714 COMBINED COMBINED PANEL 2 PHYSICIAN PHYSICIAN S LA S LA COMPREHEN 43535 COMBINED COMBINED SIVE 2 PHYSICIAN PHYSICIAN METABOLIC S LA S LA PANEL HEMOGLOBI 62592 COMBINED COMBINED N 2 PHYSICIAN PHYSICIAN GLYCOSYLA S LA S LA DIGNA A1C BASIC 27898 [facility] 2 Y Y PANEL [facility] CALCIUM TOTAL AMB A0427 KEISHA KEISHA SERVICE 2 [facility] EMERGENCY COG[facility] TRANSPORT LEVEL 1 GROUND A0425 KEISHA KEISHA MILEAGE 2 [place] PER URBAN [place] [address] [facility] INFUSION 2 Y Y HYDRATION HOSPITAL HOSPITAL INITIAL 31 MIN-1 HOUR PROTHROMB 09875 [facility] IN TIME 2 Y Y HOSPITAL HOSPITAL ECG 10189 [facility] ROUTINE 2 Y Y ECG [facility] W/LEAST 12 LDS TRCG ONLY W/O I&R RINGERS J7120 [facility] LACTATE 2 Y Y INFUSION HOSPITAL HOSPITAL UP TO 1000 CC RADIOLOGI 78519 [place] [facility] C 2 MEDICAL POLY EXAMINATI SERV ON CHEST FOUNDATIO [place] FRONTAL THROMBOPL 82429 [facility] ASTIN 2 Y Y TIME HOSPITAL HOSPITAL PARTIAL PLASMA/WH OLE BLOOD BLOOD 35253 [facility] COUNT 2 Y Y COMPLETE [facility] [place] [address] [facility] TROPONIN 2 Y Y QUANTITAT [facility] [place] [address] RADIOLOGY EMI HEAD/BRAI 2 ATT N W/O ASSOCIATE CONTRAST S OF NOTH MATERIAL ECG 01487 [facility] CHR HEEB CHR ROUTINE 2 ECG W/LEAST 12 LDS I&R ONLY OPHTH 05400 ELVIRA MIRELES, [facility] 9 VISION BRENT M XM&EVAL COMPRHNSV ESTAB PT 1/> GENERAL 27874 [facility] 8 Weiju PANEL BILIRUBIN 05215 [facility] DIRECT 8 [employer] [facility] LIPID 06654 [facility] PANEL 8 [employer] [facility] URNLS DIP 85018 [facility] OF 8 [employer] STICK/TAB LET REAGENT AUTO MICROSCOP Y Encounters Encounter Start End Date Code Location Performer Type Date HOSPITAL GENE Zamora 7 [facility] OUTPATIEN INC T EMERGENCY 28838 GENE Zamora 7 [facility] DEPARTMEN INC T VISIT HIGH/URGE NT SEVERITY OFFICE 18997 [facility] OUTPATIEN 2 2 N CO N CO T VISIT 5 [facility] CENTER OFFICE 33924 [facility] OUTPATIEN 2 2 N CO N CO T NEW 10 [facility] CENTER EMERGENCY 46121 NICK VALDEZ 2 2 MEDICAL SET DEPARTMEN SERV T VISIT FOUNDATIO HIGH/URGE N NT SEVERITY EMERGENCY 75095 UNIVERSIT DEPT 2 2 Y VISIT HOSPITAL HIGH SEVERITY& THREAT [facility] UNIVERSIT - 2 2 Y [facility] T OFFICE 37970 YUSUF CAMARA 8 8 MEDICAL RM Sow T VISIT GROUP 25 MINUTES
--- OUTSIDE RECORDS SUMMARY | 2016-08-16 09:38 | External Medical Summary Rpt ---
Author Author , Organization [employer] Address Unknown Phone Unavailable Care Team Providers Care Javascript Programmer Name Role Phone RM HARRELL, Unavailable Unavailable RM HARRELL [facility] Unavailable Unavailable SERVICE, [facility] Unavailable Unavailable SERVICE, [facility] Unavailable Unavailable [place], [facility] Unavailable Unavailable [place], [facility] [place] [id number], Unavailable Unavailable [facility] Unavailable Unavailable DI[facility]NOSTIC [facility], [facility] Unavailable Unavailable DI[facility]NOSTIC [facility], [facility] Unavailable Unavailable TRANSPORTATION SER, [facility] Unavailable Unavailable INC, [facility] Unavailable [facility]available [facility] P, [facility], [facility] Unavailable Unavailable [facility] [employer] [facility], Unavailable Unavailable [facility] MARILYN DICKSON, MARILYN DICKSON Unavailable Unavailable KE[facility] Unavailable Unavailable [place], KEISHA [facility] Un[facility], [facility] EMI ATT, EMI Unavailable Unavailable ATT NICKELS POLY, NICKELS Unavailable Unavailable POL[facility] Un[facility] Unavailable Unavailable [facility], [facility], Unavailable Unavailable [facility], Unavailable Unavailable [facility] Unavailable Unavailable [facility] BRENT MIRELES, Unavailable Unavailable BRENT MIRELES [facility], Unavailable Unavailable [facility], Unavailable Unavailable [facility] Purpose Continuity of Care Document - 07-12-2007 through 2016 Problems Code Diagnosis DOS Provider Status E039 HYPOTHYROID 06-19-2016 [facility]M [facility] UNSPECIFIED [place] E119 TYPE 2 04-20-2016 [place] DIABETES [facility] P WITHOUT COMPLICATIO NS I2510 [facility] [place] 04-20-2016 [place] CORONARY [facility] ARTERY W/O HOSPITAL P ANGINA PECTORIS R1013 EPIGASTRIC 04-20-2016 [facility] P R1110 VOMITING 04-20-2016 [facility] UNSPECIFIED AMBULANCE SERVICE R12 HEARTBURN 04-20-2016 [facility] AMBULANCE SERVICE [id number] PERSONAL 04-20-2016 [facility] DEPENDENCE E785 HYPERLIPIDE 02-28-2016 [facility] [place] PHYS[facility]IANS UNSPECIFIED LA D649 ANEMIA 09-05-2015 COMBINED UNSPECIFIED PHYSICIANS LA I10 ESSENTIAL 09-05-2015 [facility] PRIMARY PHYSICIANS HYPERTENSIO LA N R69 ILLNESS 04-25-2015 [facility]ATED UNSPECIFIED TRANSPORTAT ION SER 20828 NONSPEC 11-23-2014 [facility] TUBERCULIN DIAGNOSTIC SKIN TEST SE W/O ACTIVE TB 2724 OTHER AND 08-31-2014 COMBINED UNSPECIFIED PHYSICIANS LA HYPERLIPIDE STEFFEN 2449 UNSPECIFIED 06-29-2014 [facility] PHYSICIANS HYPOTHYROID LA ISM 74151 DIAB W/O 03-29-2012 [facility] TYPE [facility] II/UNS NOT STATED UNCNTRL 56550 OTHER 03-29-2012 [facility] FATIGUE V741 SCREENING 01-23-2012 [place] EXAMINATION MO [place] FOR BUSY PULMONARY TUBERCULOSI S V5869 LONG-TERM 12-17-2011 COMBINED (CURRENT) PHYSICIANS USE OF LA OTHER MEDICATIONS 4293 CARDIOMEGAL 05-29-2011 [facility] MEDICAL Y SERV [facility] EMERGENCY DEPARTMENT 5180 PULMONARY 05-29-2011 NE MEDICAL COLLAPSE SERV [facility] EMERGENCY DEPARTMENT 51570 CHEST PAIN 05-29-2011 [facility] 43568 ACUTE 05-27-2011 [facility] DUE TO [facility] SOLAR RADIATION 3671 MYOPIA 08-11-2008 EL[facility]A VISION 2720 PURE 09-22-2007 [facility] [employer] [employer] [facility] TEROLEMIA 03544 ESOPHAGEAL 09-22-2007 [facility] 7823 EDEMA 09-22-2007 [facility] [place] [facility] 7962 ELEVATED BP 09-22-2007 [facility] [place] [employer] [facility] WITHOUT DX HYPERTENSIO N Medications Na [...] M #6 TA 12 BL 0 ET [place] 37 06 12 05 56 28 CV [...] M #6 TA 12 BL 0 ET NY 37 06 10 04 56 28 CV [...] M #6 TA 12 BL 0 ET NY 37 06 09 03 56 28 CV [...] M #6 TA 12 BL 0 ET NY 37 06 08 02 56 28 CV 73 BA Ac IL 00 -0 -2 .0 S 31 NK ti OS 00 4- 8- 00 PH 06 S ve EC 45 20 20 AR DA 50 08 08 MA OT 2 CY D C M 20 #6 .6 12 0 MG TA BL ET [place] 37 06 07 01 56 28 CV [...] M #6 TA 12 BL 0 ET NY 37 06 07 00 56 28 CV [...] M #6 TA 12 BL 0 ET NY 37 09 05 05 56 28 CV [...] e #6 TA 12 BL 0 ET NY 37 09 04 04 56 28 CV 70 No Ac IL 00 -2 -2 .0 S 38 t ti OS 00 PH 05 Av ve EC 45 20 20 AR ai 50 07 08 MA la OT 2 CY bl C e 20 #6 .6 12 0 MG TA BL ET [place] 37 09 04 03 56 28 CV [...] e #6 TA 12 BL 0 ET NY 37 09 03 02 56 28 CV [...] e #6 TA 12 BL 0 ET NY 37 09 03 01 56 28 CV [...] DOS [place] [address] COMBINED COMBINED THYROID 7 PHYSICIAN PHYSICIAN STIMULATI S LA S LA NG HORMONE TSH COLLECTIO 40198 COMBINED COMBINED N VENOUS 7 PHYSICIAN PHYSICIAN BLOOD [place] [address] [facility] LIPASE 7 [facility] INC INC ECG 28254 G[facility] ROUTINE 7 [facility] ECG INC INC W/LEAST 12 LDS TRCG ONLY W/O I&R THER 63307 [facility] PROPH/DX 7 [facility] NJX EA INC INC SEQL IV PUSH SBST/DRUG FAC AMB A0427 [facility] SERVICE 7 AMBULANCE AMBULANCE ALS SERVICE SERVICE [place]ERGENCY [place] 1 [place] [address] [facility] INFUSION 7 [facility] THERAPY/P INC INC ROPHYLAXI S /DX 1ST TO 1 HR THERAPEUT 07067 [facility] IC 7 [facility] INJECTION INC INC IV PUSH EACH NEW DRUG GROUND A0425 [facility] MILEAGE 7 AMBULANCE AMBULANCE PER SERVICE SERVICE STATUTE MILE ECG 89937 [facility] JR ROUTINE 7 [facility] W/LEAST P 12 LDS I&R ONLY COMPREHEN 63182 [facility] SIVE 7 [facility] [address] G[facility] AMYLASE 7 [facility] INC INC BLOOD 14765 [facility] OCCULT 7 [facility] PEROXIDAS INC INC E ACTV QUAL FECES 1-3 [place] [address] [facility] TROPONIN 7 [facility] QUANTITAT INC INC CIELO BLOOD 64711 [facility] COUNT 7 [facility] COMPLETE INC INC AUTO&[place] [address] COMBINED COMBINED THYROID 6 PHYSICIAN PHYSICIAN STIMULATI S LA S LA NG HORMONE TSH COLLECTIO 17531 COMBINED COMBINED N VENOUS 6 PHYSICIAN PHYSICIAN BLOOD S LA S LA VENIPUNCT URE HEPATIC 15502 COMBINED COMBINED FUNCTION 6 PHYSICIAN PHYSICIAN PANEL S LA S LA LIPID 27540 COMBINED COMBINED PANEL 6 PHYSICIAN PHYSICIAN S LA S LA LIPID 28841 COMBINED COMBINED PANEL 6 PHYSICIAN PHYSICIAN S LA S LA COLLECTIO 05779 COMBINED COMBINED N VENOUS 6 PHYSICIAN PHYSICIAN BLOOD S LA S LA VENIPUNCT URE COMPREHEN 82179 COMBINED COMBINED SIVE 6 PHYSICIAN PHYSICIAN METABOLIC S LA S LA PANEL LIPID 38400 COMBINED COMBINED PANEL 6 PHYSICIAN PHYSICIAN S LA S LA BLOOD 32745 COMBINED COMBINED COUNT 6 PHYSICIAN PHYSICIAN COMPLETE S LA S LA AUTO&AUTO DIFRNTL WBC COLLECTIO 98563 COMBINED COMBINED N VENOUS 6 PHYSICIAN PHYSICIAN BLOOD S LA S LA VENIPUNCT URE COLLECTIO 31435 COMBINED COMBINED N VENOUS 6 PHYSICIAN PHYSICIAN [place]LO[place] [address] COMBINED COMBINED THYROID 6 PHYSICIAN PHYSICIAN STIMULATI S LA S LA NG HORMONE TSH NONEMERG A0120 FEDERATED FEDERATED TRNSPRT: 6 MINI-BUS TRANSPORT TRANSPORT MTN ATION SER ATION SER AREA/OTH SYS NONEMERGE A0130 FEDERATED FEDERATED NCY 5 TRANSPORT TRANSPORT TRANSPORT ATION: ATION SER ATION SER WHEELCHAI R VAN COLLECTIO 49960 COMBINED COMBINED N VENOUS 5 PHYSICIAN PHYSICIAN BLOOD S LA S LA VENIPUNCT URE HEPATIC 57465 COMBINED COMBINED FUNCTION 5 PHYSICIAN PHYSICIAN PANEL S LA S LA LIPID 76767 COMBINED COMBINED PANEL 5 PHYSICIAN PHYSICIAN S LA S LA NONEMERG A0120 FEDERATED FEDERATED TRNSPRT: 5 MINI-BUS TRANSPORT TRANSPORT MTN ATION SER AT[place] ARE[place] [address] COMBINED COMBINED THYROID 5 PHYSICIAN PHYSICIAN STIMULATI S LA S LA NG HORMONE TSH COLLECTIO 19323 COMBINED COMBINED N VENOUS 5 PHYSICIAN PHYSICIAN BLOOD S LA S LA VENIPUNCT URE RADIOLOGI 76188 EXPRESS EXPRESS C EXAM 5 MOBILE MOBILE CHEST 2 DIAGNOSTI DIAGNOSTI VIEWS C SE C SE FRONTAL&L ATERAL BLOOD 87008 COMBINED COMBINED COUNT 5 PHYSICIAN PHYSICIAN COMPLETE S LA S LA AUTO&AUTO DIFRNTL WBC LIPID 79609 COMBINED COMBINED PANEL 5 PHYSICIAN PHYSICIAN S LA S LA COMPREHEN 53001 COMBINED COMBINED SIVE 5 PHYSICIAN PHYSICIAN [place] [address] COMBINED COMBINED THYROID 5 PHYSICIAN PHYSICIAN STIMULATI [place] [address] COMBINED COMBINED THYROID 4 PHYSICIAN PHYSICIAN STIMULATI [place] [address] COMBINED COMBINED THYROID 4 PHYSICIAN PHYSICIAN STIMULATI S LA S LA NG HORMONE TSH RADIOLOGI 48800 EXPRESS EXPRESS C EXAM 4 MOBILE MOBILE CHEST 2 DIAGNOSTI DIAGNOSTI VIEWS C SE C SE FRONTAL&[place] [address] [facility] THYROID 3 DIAGNOSTI DIAGNOSTI STIMULATI CS CS NG HORMONE TSH BASIC 59989 [facility] METABOLIC 3 DIAGNOSTI DIAGNOSTI PANEL CS CS CALCIUM TOTAL COMPREHEN 32004 [facility] SIVE 2 DIAGNOSTI DIAGNOST[place] [address] [facility] THYROID 2 DIAGNOSTI DIAGNOSTI STIMULATI CS CS NG HORMONE TSH SKIN TEST 87451 [facility] P[facility] 2 N CO N CO [facility] C[facility] INTRADERM AL COMPREHEN 21793 COMBINED COMBINED SIVE 2 PHYSICIAN PHYSICIAN METABOLIC S LA S LA PANEL LIPID 89866 COMBINED COMBINED PANEL 2 PHYSICIAN PHYSICIAN S LA S LA HEMOGLOBI 10713 COMBINED COMBINED N 2 PHYSICIAN PHYSICIAN GLYCOSYLA S LA S LA DIGNA A1C LIPID 61480 COMBINED COMBINED PANEL 2 PHYSICIAN PHYSICIAN S LA S LA COMPREHEN 25079 COMBINED COMBINED SIVE 2 PHYSICIAN PHYSICIAN METABOLIC S LA S LA PANEL HEMOGLOBI 71402 COMBINED COMBINED N 2 PHYSICIAN PHYSICIAN GLYCOSYLA S LA S LA DIGNA A1C BASIC 82079 [facility] 2 Y Y PANEL [facility] CALCIUM TOTAL AMB A0427 KEISHA KEISHA SERVICE 2 [place]AYET[place] FAYET[facility] ALS URBAN URBAN EMERGENCY COGOV[facility] COGOVT TRANSPORT LEVEL 1 GROUND A0425 KEISHA KEISHA MILEAGE 2 [place] PER URBAN URB[place] [address] [facility] INFUSION 2 Y Y HYDRATION HOSPITAL HOSPITAL INITIAL 31 MIN-1 HOUR PROTHROMB 29688 [facility] IN TIME 2 Y Y HOSPITAL HOSPITAL ECG 82702 [facility] ROUTINE 2 Y Y ECG [facility] W/LEAST 12 LDS TRCG ONLY W/O I&R RINGERS J7120 [facility] LACTATE 2 Y Y INFUSION HOSPITAL HOSPITAL UP TO 1000 CC RADIOLOGI 08780 [place] NICKELS C 2 MEDICAL POLY EXAMINATI SERV ON CHEST FOUNDATIO SINGLE N VIEW FRONTAL THROMBOPL 72215 [facility] ASTIN 2 Y Y TIME HOSPITAL HOSPITAL PARTIAL PLASMA/WH OLE BLOOD BLOOD 26963 [facility] COUNT 2 Y Y COMPLETE [facility] [place] [address] [facility] TROPONIN 2 Y [place] [address] RADIOLOGY EMI HEAD/BRAI 2 ATT N W/O ASSOCIATE CONTRAST S OF NOTH MATERIAL ECG 32888 HEEB CHR HEEB CHR ROUTINE 2 ECG W/LEAST 12 LDS I&R ONLY OPHTH 30760 ELVIRA MIRELES, [facility] 9 VISION BRENT M XM&EVAL COMPRHNSV ESTAB PT 1/> GENERAL 36527 [facility] 8 [employer] PANEL BILIRUBIN 41520 [facility] DIRECT 8 [facility] LIPID 61692 [facility] PANEL 8 [facility] URNLS DIP 74776 [facility] STICK/TAB LET REAGENT AUTO MICROSCOP Y Encounters Encounter Start End Date Code Location Performer Type Date HOSPITAL GENE [facility] 7 [facility] OUTPATIEN INC T EMERGENCY 62834 GENE [place] 7 [facility] DEPARTMEN INC T VISIT HIGH/URGE NT SEVERITY OFFICE 38861 [facility] OUTPATIEN 2 2 N CO N CO T VISIT 5 [facility] OFFICE 74863 [facility] P[facility] OUTPATIEN 2 2 N CO N CO T NEW 10 [facility] EMERGENCY 77679 NICK VALDEZ 2 2 MEDICAL SET DEPARTMEN SERV T VISIT FOUNDATIO HIGH/URGE N NT SEVERITY EMERGENCY 29581 [facility] DEPT 2 2 Y VISIT HOSPITAL HIGH SEVERITY& THREAT [facility] UNIVERSIT - 2 2 Y [facility] T OFFICE 37919 YUSUF CAMARA 8 8 MEDICAL RM Sow T VISIT GROUP 25 MINUTES
--- OUTSIDE RECORDS SUMMARY | 2016-08-16 09:39 | External Medical Summary Rpt ---
Author Author MARGARET Petersen, MARGARET Production Organization [employer] Address Unknown Phone Unavailable Results Glu Bed Observa Value Referen Units Interpr Notes Date tion ce etation Range GLU BED 94 70 - mg/dL No No Nov 16 100 informa informa 2014 tion in tion in 4:37 PM source source data data Glu Bed Observa Value Referen Units Interpr Notes Date tion ce etation Range GLU BED 89 70 - mg/dL No No Nov 16 100 informa informa 2014 tion in tion in 8:30 AM source source data data Glu Bed Observa Value Referen Units Interpr Notes Date tion ce etation Range GLU BED 154 70 - mg/dL High No Nov 15 100 informa 2013 tion in 10:11 source PM data Glu Bed Observa Value Referen Units Interpr Notes Date tion ce etation Range GLU BED 96 70 - mg/dL No No Nov 15 100 informa informa 2013 tion in tion in 9:55 AM source source data data Glu Bed Observa Value Referen Units Interpr Notes Date tion ce etation Range GLU BED 124 70 - mg/dL High No Nov 14 100 informa 2013 tion in 4:39 PM source data Glu Bed Observa Value Referen Units Interpr Notes Date tion ce etation Range GLU BED 142 70 - mg/dL High No Nov 13 100 informa 2013 tion in 4:42 PM source data Glu Bed Observa Value Referen Units Interpr Notes Date tion ce etation Range GLU BED 101 70 - mg/dL High No Nov 13 100 informa 2013 tion in 8:17 AM source data Hep Prf-Ac Observa Value Referen Units Interpr Notes Date tion ce etation Range Hepatit Negativ Negativ No No No Nov 14 is B e e informa informa informa 2014 virus tion in tion in tion in 9:22 AM surface source source source Ag data data data [Presen ce] in Serum by Immunoa ssay Hep B Negativ Negativ No No No Nov 14 Core e e informa informa informa 2013 IgM tion in tion in tion in 9:22 AM source source source data data data Hepatit Negativ Negativ No No No Nov 14 is A e e informa informa informa 2013 virus tion in tion in tion in 9:21 AM Ab source source source [Units/ data data data volume] in Serum by Radioim munoass ay (GUTIERREZ) Hep C Negativ Negativ No No No Nov 14 Ab e e informa informa informa 2013 tion in tion in tion in 9:23 AM source source source data data data UA Observa Value Referen Units Interpr Notes Date tion ce etation Range UA Yellow No No No No Nov 12 Color informa informa informa informa 2013 tion in tion in tion in tion in 12:16 source source source source PM data data data data UA Clear Clear No No No Nov 12 Appear informa informa informa 2013 tion in tion in tion in 12:16 source source source PM data data data UA Negativ Negativ No No No Nov 12 Glucose e e informa informa informa 2013 tion in tion in tion in 12:16 source source source PM data data data UA Negativ Negativ No No No Nov 12 Ketones e e informa informa informa 2013 tion in tion in tion in 12:16 source source source PM data data data UA Negativ Negativ No No No Nov 12 Blood e e informa informa informa 2013 tion in tion in tion in 12:16 source source source PM data data data UA pH 6.0 5.0 - No No No Nov 12 8.0 informa informa informa 2013 tion in tion in tion in 12:16 source source source PM data data data UA Negativ Negativ No No No Nov 12 Protein e e informa informa informa 2013 tion in tion in tion in 12:16 source source source PM data data data UA 0.2 <=1 No No No Nov 12 Urobili mg/dl mg/dl informa informa informa 2013 nogen tion in tion in tion in 12:16 source source source PM data data data UA Negativ Negativ No No No Nov 12 Nitrite e e informa informa informa 2014 tion in tion in tion in 12:16 source source source PM data data data UA Leuk Negativ Negativ No No No Nov 12 Est e e informa informa informa 2014 tion in tion in tion in 12:16 source source source PM data data data UA Spec 1.010 1.001 - No No No Nov 12 Grav 1.035 informa informa informa 2014 tion in tion in tion in 12:16 source source source PM data data data Drg Sc Rap Observa Value Referen Units Interpr Notes Date tion ce etation Range Tricycl Absent 300 No No No Nov 12 ic ng/mL informa informa informa 2013 Rapid tion in tion in tion in 12:15 source source source PM data data data Barbitu Absent 200 No No No Nov 12 rate ng/mL informa informa informa 2013 Rapid tion in tion in tion in 12:15 source source source PM data data data Methado Absent 300 No No No Nov 12 ne ng/mL informa informa informa 2013 Rapid tion in tion in tion in 12:15 source source source PM data data data Benzodi Absent 300 No No No Nov 12 azepine ng/mL informa informa informa 2014 s Rapid tion in tion in tion in 12:15 source source source PM data data data Cannabi Absent 50 No No No Nov 12 noid ng/mL informa informa informa 2013 Rapid tion in tion in tion in 12:15 source source source PM data data data Opiate Absent 300 No No No Nov 12 Rapid ng/mL informa informa informa 2013 tion in tion in tion in 12:15 source source source PM data data data Ampheta Absent 1000 No No No Nov 12 mine ng/mL informa informa informa 2013 Rapid tion in tion in tion in 12:15 source source source PM data data data Cocaine Absent 300 No No No Nov 12 Rapid ng/mL informa informa informa 2013 tion in tion in tion in 12:15 source source source PM data data data Propoxy Absent 300 No No No Nov 12 phene ng/mL informa informa informa 2013 Rapid tion in tion in tion in 12:15 source source source PM data data data Methamp Absent 1500 No No No Nov 12 hetamin ng/mL informa informa informa 2013 e Rapid tion in tion in tion in 12:15 source source source PM data data data Procedu These No No No No Nov 12 re Note drug informa informa informa informa 2014 Rapid classes tion in tion in tion in tion in 12:15 have source source source source PM been data data data data screene d by immunoa ssay and are for medical purpose s only. The results should not be used for non-med ical purpose s. If confirm ation is desired , please place a separat e order for each drug confirm ation. Specime ns will be saved for 3 busines s days should additio nal orders/ testing be desired . TSH Observa Value Referen Units Interpr Notes Date tion ce etation Range Thyrotr 1.840 0.270 - mcIU/mL No No Nov 12 opin 4.200 informa informa 2013 [Units/ tion in tion in 7:26 PM volume] source source in data data Serum or Plasma Auto Diff Observa Value Referen Units Interpr Notes Date tion ce etation Range Neutrop 66.4 No % No No Nov 12 hils informa informa informa 2013 [#/volu tion in tion in tion in 12:02 me] in source source source PM Blood data data data by Automat ed count Lymphoc 23.2 No % No No Nov 12 ytes informa informa informa 2013 [#/volu tion in tion in tion in 12:02 me] in source source source PM Blood data data data by Automat ed count Monocyt 7.7 No % No No Nov 12 es informa informa informa 2013 [#/volu tion in tion in tion in 12:02 me] in source source source PM Blood data data data by Automat ed count Eos 1.7 No % No No Nov 12 Percent informa informa informa 2013 tion in tion in tion in 12:02 source source source PM data data data Baso 1.0 No % No No Nov 12 Percent informa informa informa 2013 tion in tion in tion in 12:02 source source source PM data data data Neut# 2.9 1.8 - x10(3)/ No No Nov 12 7.7 mcL informa informa 2013 tion in tion in 12:02 source source PM data data Lymph# 1.0 0.6 - x10(3)/ No No Nov 12 4.8 mcL informa informa 2013 tion in tion in 12:02 source source PM data data [place]# 0.3 0.0 - x10(3)/ No No Nov 12 1.3 mcL informa informa 2013 tion in tion in 12:02 source source PM data data Eos# 0.1 0.0 - x10(3)/ No No Nov 12 0.5 mcL informa informa 2013 tion in tion in 12:02 source source PM data data Baso# 0.0 0.0 - x10(3)/ No No Nov 12 0.2 mcL informa informa 2013 tion in tion in 12:02 source source PM data data CBC Observa Value Referen Units Interpr Notes Date tion ce etation Range LEUKOCY 4.4 4.0 - x10(3)/ No No Nov 12 ELENO 11.0 [facility] informa informa 2013 tion in tion in 12: source source PM data data Erythro 4.13 4.30 - x10(6)/ Low No Nov 12 cytes 5.81 mcL informa 2013 [#/volu tion in 12: me] in source PM Blood data by Automat ed count Hemoglo 12.2 13.5 - gm/dL Low No Nov 12 bin 17.1 informa 2013 [Mass/v tion in 12: olume] source PM in data Blood Hematoc 37.1 38.9 - % Low No Nov 12 rit 51.6 informa 2013 [Volume tion in 12: source PM Fractio data n] of Blood by Automat ed count Erythro 89.7 82.5 - fL No No Nov 12 cyte 99.8 informa informa 2014 mean tion in tion in 12:02 corpusc source source PM ular data data volume [Entiti c volume] by Automat ed count Erythro 29.6 27.0 - pg No No Nov 12 cyte 34.3 informa informa 2014 mean tion in tion in 12:02 corpusc source source PM ular data data hemoglo bin [Entiti c mass] by Automat ed count Erythro 32.9 32.1 - gm/dL No No Nov 12 cyte 35.3 informa informa 2014 mean tion in tion in 12:02 corpusc source source PM ular data data hemoglo bin concent ration [Mass/v olume] by Automat ed count Erythro 12.7 11.5 - % No No Nov 12 cyte 15.0 informa informa 2014 distrib tion in tion in 12:02 ution source source PM width data data [Ratio] by Automat ed count Platele 241 144 - x10(3)/ No No Nov 12 ts 423 mcL informa informa 2014 [#/volu tion in tion in 12:02 me] in source source PM Blood data data by Automat ed count MPV 8.3 6.8 - fL No No Nov 12 10.8 informa informa 2014 tion in tion in 12:02 source source PM data data
--- OUTSIDE RECORDS SUMMARY | 2016-08-16 09:39 | External Medical Summary Rpt ---
Demographics Preferred Language Honduran Marital Status Unknown Presybeterian Affiliation Unknown Race Unknown Ethnic Group Unknown Author Author , Organization [employer] Address Unknown Phone Unavailable Purpose Continuity of Care Document - through 2016 Immunization No patient found.
--- OUTSIDE RECORDS SUMMARY | 2016-08-16 09:39 | External Medical Summary Rpt ---
[...] in 12:02 source source PM data data [place]# 0.3 0.0 - x10(3)/ No No Nov [...] x10(3)/ No No Nov 12 ELENO 11.0 [facility] informa informa 2013 tion in tion in [...]
--- OUTSIDE RECORDS SUMMARY | 2016-08-16 09:39 | External Medical Summary Rpt ---
Demographics Preferred Language Cypriot Marital Status Unknown Restoration Affiliation Unknown Race Unknown Ethnic Group Unknown Author Author , Organization [employer] Address Unknown Phone Unavailable Purpose Continuity of Care Document - through 2016 Immunization No patient found.
--- OUTSIDE RECORDS SUMMARY | 2016-08-16 09:42 | External Medical Summary Rpt ---
Author Author , Organization [employer] Address Unknown Phone Unavailable Care Team Providers Care Sales Forecast Analyst Name Role Phone RM HARRELL, Unavailable Unavailable RM HARRELL [facility] Unavailable Unavailable SERVICE, [facility] Unavailable Unavailable SERVICE, [facility] Unavailable Unavailable [place], [facility] Unavailable Unavailable [place], [facility] [place] [id number], Unavailable Unavailable [id number] Unavailable Unavailable [facility], [facility] Unavailable Unavailable [facility], [facility] Unavailable Unavailable TRANSPORTATION SER, [facility] Un[facility] Unavailable [facility], [facility] Un[facility] P, [facility], [facility] Unavailable [facility]available [facility], Unavailable Unavailable [facility] MARILYN DICKSON, MARILYN DICKSON Unavailable Unavailable KE[facility]HA FAYETTE [facility] Unavailable Unavailable [place], KEISHA FAYETTE [facility] EMI ATT, EMI Unavailable Unavailable ATT NICKELS POLY, NICKELS Unavailable Unavailable POL[facility] Un[facility] Un[facility], [facility], [facility], Unavailable Unavailable [facility], Unavailable Unavailable [facility] Unavailable Unavailable [facility], [facility] BRENT MIRELES, Unavailable Unavailable BRENT MIRELES, Unavailable Unavailable [facility], Unavailable Unavailable [facility] Purpose Continuity of Care Document - 07-12-2007 through 2016 Problems Code Diagnosis DOS Provider Status E039 HYPOTHYROID 06-19-2016 [facility] UNSPECIFIED [place] E119 TYPE 2 04-20-2016 [facility] DIABETES [facility] P WITHOUT COMPLICATIO NS I2510 ASHD PILOT STATION 04-20-2016 [facility] CORONARY [facility] P ANGINA PECTORIS R1013 EPIGASTRIC 04-20-2016 [facility] PAIN [facility] P R1110 VOMITING 04-20-2016 [facility] UNSPECIFIED AMBULANCE SERVICE R12 HEARTBURN 04-20-2016 [facility] Q84218 PERSONAL 04-20-2016 GENE HISTORY OF [facility] P DEPENDENCE E785 HYPERLIPIDE 02-28-2016 [facility] UNSPECIFIED LA D649 ANEMIA 09-05-2015 COMBINED UNSPECIFIED PHYSICIANS LA I10 ESSENTIAL 09-05-2015 [facility] PRIMARY PHYSICIANS HYPERTENSIO LA N R69 ILLNESS 04-25-2015 [facility] UNSPECIFIED TRANSPORTAT ION SER 75181 NONSPEC 11-23-2014 [facility] TUBERCULIN DIAGNOSTIC SKIN TEST SE W/O ACTIVE TB 2724 OTHER AND 08-31-2014 COMBINED UNSPECIFIED PHYSICIANS LA HYPERLIPIDE STEFFEN 2449 UNSPECIFIED 06-29-2014 [facility] PHYSICIANS HYPOTHYROID [place] ISM 69970 DIAB W/O 03-29-2012 [facility] COMP TYPE [facility]NO[facility] II/UNS NOT STATED UNCNTRL 28519 OTHER 03-29-2012 [facility] FATIGUE V741 SCREENING 01-23-2012 [facility] EXAMINATION [facility] PULMONARY TUBERCULOSI S V5869 LONG-TERM 12-17-2011 COMBINED (CURRENT) PHYSICIANS USE OF LA OTHER MEDICATIONS 4293 CARDIOMEGAL 05-29-2011 [facility] 5180 PULMONARY 05-29-2011 [facility] 15297 CHEST PAIN 05-29-2011 [facility] 36962 ACUTE 05-27-2011 [facility] DUE TO [facility] SOLAR RADIATION 3671 MYOPIA 08-11-2008 [facility] 2720 PURE 09-22-2007 [facility] TEROLEMIA 52844 ESOPHAGEAL 09-22-2007 [facility] 7823 EDEMA 09-22-2007 [facility] 7962 ELEVATED BP 09-22-2007 [facility] WITHOUT DX HYPERTENSIO N E86.0 DEHYDRATION [...] .0 00 D ti TH 81 7- 8 00 13 CA ve YR 80 20 [...] -1 .0 00 D ti 00 4- 4 00 13 CA ve TA 47 20 20 88 RE TI 90 17 17 23 N 2 11 PH 20 AR MA MG CY TA BL ET ME 69 03 04 30 30 00 ME Ac LO 09 -1 -1 .0 00 D ti XI 70 4 4 00 13 CA ve CA 15 [...] -3 .0 00 D ti TH 81 8 1- 00 13 CA ve YR 80 [...] -1 .0 00 D ti XI 70 3 7 00 13 CA ve CA 15 20 [...] .0 00 D ti TH 81 3 9- 00 13 CA ve YR 80 20 20 39 RE OX 51 16 17 16 IN 0 83 PH E AR 75 MA CY MC G LL TA C BL ET SE 68 12 01 45 30 00 ME Ac RT 18 -0 -0 .0 00 D ti RA 00 9 00 13 CA ve LI 35 20 20 39 RE NE 30 16 17 60 9 61 PH HC AR L MA 10 CY 0 MG LL C TA BL ET PA 66 08 06 0 30 30 ME 11 AR Ac NT 99 -2 -2 0. D 41 NO ti OP 30 1 9- 00 CA 15 LD ve RA [...] 0. D 05 NO ti ZA 10 6- 00 CA 29 LD ve PI [...] .0 D 51 NO ti TH 71 CA 98 LD ve YR 34 20 20 RE 83 OX 21 14 14 RI IN 0 PH CH E AR AR 50 MA D CY W MC G LL TA C BL ET PA 00 08 09 0 30 30 ME 10 AR Ac NT 00 -2 -1 0. D 51 NO ti OP 80 7- 00 CA 98 LD ve RA [...] .0 S 37 NK ti TO 00 8- 00 PH 03 S ve R 75 20 20 AR DA 10 19 08 08 MA 0 CY D MG M #6 TA 12 BL 0 ET ID 37 06 12 05 56 28 CV [...] M #6 TA 12 BL 0 ET ID 37 06 10 04 56 28 CV [...] M #6 TA 12 BL 0 ET ID 37 06 09 03 56 28 CV [...] M #6 TA 12 BL 0 ET ID 37 06 08 02 56 28 CV 73 BA Ac IL 00 -0 -2 .0 S 31 NK ti OS 00 4- 8- 00 PH 06 S ve EC 45 20 20 AR DA 50 08 08 MA OT 2 CY D C M 20 #6 .6 12 0 MG TA BL ET ID 37 06 07 01 56 28 CV [...] M #6 TA 12 BL 0 ET ID 37 06 07 00 56 28 CV 73 BA Ac IL 00 -0 -0 .0 S 31 NK ti OS 00 4 3- 00 PH 06 S ve EC [...] M #6 TA 12 BL 0 ET ID 37 09 05 05 56 28 CV 70 No Ac IL 00 -2 -2 .0 S 38 t ti OS 00 2 PH 05 Av ve EC 45 20 [...] e #6 TA 12 BL 0 ET ID 37 09 04 04 56 28 CV 70 No Ac IL 00 -2 -2 .0 S 38 t ti OS 00 PH 05 Av ve EC 45 20 20 AR ai 50 07 08 MA la OT 2 CY bl C e 20 #6 .6 12 0 MG TA BL ET ID 37 09 04 03 56 28 CV [...] e #6 TA 12 BL 0 ET ID 37 09 03 02 56 28 CV [...] e #6 TA 12 BL 0 ET ID 37 09 03 01 56 28 CV [...] [place] [address] COMBINED COMBINED THYROID 7 PHYSICIAN PHYSICIAN STIMULATI S [place] HORMONE TSH COLLECTIO 33600 COMBINED COMBINED N VENOUS 7 PHYSICIAN PHYSICIAN [place] [address] G[facility] TROPONIN 7 [facility] QUANTITAT INC INC CIELO BLOOD 57562 [facility] COUNT 7 [facility] COMPLETE INC INC AUTO&[place] [address] [facility] INFUSION 7 [facility] THERAPY/P INC INC ROPHYLAXI S /DX 1ST TO 1 HR THERAPEUT 23078 [facility] IC 7 [facility] INJECTION INC INC IV PUSH EACH NEW DRUG GROUND A0425 [facility] AMBULANCE PER SERVICE SERVICE STATUTE MILE ECG 73855 GENE SANDERS JR ROUTINE 7 [facility] W/LEAST P 12 LDS I&R ONLY THER 70902 [facility] PROPH/DX 7 [facility] NJX EA INC INC SEQL IV PUSH SBST/DRUG FAC AMB A0427 [facility] SERVICE 7 AMBULANCE AMBULANCE ALS SERVICE SERVICE EMERGENCY TRANSPORT LEVEL 1 ECG 25934 [facility] ROUTINE 7 [facility] ECG INC INC W/LEAST 12 LDS TRCG ONLY W/O I&[place] [address] [facility] LIPASE 7 [facility] INC INC COMPREHEN 53162 G[facility] SIVE 7 [facility] [place] [address] [facility] AMYLASE 7 [facility] INC INC BLOOD 80675 [facility] OCCULT 7 [facility] PEROXIDAS INC INC E ACTV QUAL FECES 1-3 SPEC COLLECTIO 90416 COMBINED COMBINED N VENOUS 6 PHYSICIAN PHYSICIAN [place] [address] COMBINED COMBINED THYROID 6 PHYSICIAN PHYSICIAN STIMULATI S LA S LA NG HORMONE TSH LIPID 28165 COMBINED COMBINED PANEL 6 PHYSICIAN PHYSICIAN S LA S LA HEPATIC 90768 COMBINED COMBINED FUNCTION 6 PHYSICIAN PHYSICIAN PANEL S LA S LA COLLECTIO 67281 COMBINED COMBINED N VENOUS 6 PHYSICIAN PHYSICIAN BLOOD S LA S LA VENIPUNCT URE LIPID 89127 COMBINED COMBINED PANEL 6 PHYSICIAN PHYSICIAN S LA S LA COLLECTIO 15282 COMBINED COMBINED N VENOUS 6 PHYSICIAN PHYSICIAN BLOOD S LA S LA VENIPUNCT URE BLOOD 35347 COMBINED COMBINED COUNT 6 PHYSICIAN PHYSICIAN COMPLETE S LA S LA AUTO&AUTO DIFRNTL WBC COMPREHEN 46096 COMBINED COMBINED SIVE 6 PHYSICIAN PHYSICIAN METABOLIC S LA S LA PANEL LIPID 99392 COMBINED COMBINED PANEL 6 PHYSICIAN PHYSICIAN S LA S LA COLLECTIO 67515 COMBINED COMBINED N VENOUS 6 PHYSICIAN PHYSICIAN [place] [address] COMBINED COMBINED THYROID 6 PHYSICIAN PHYSICIAN STIMULATI S LA S LA NG HORMONE TSH NONEMERG A0120 FEDERATED FEDERATED TRNSPRT: 6 MINI-BUS TRANSPORT TRANSPORT MTN ATION SER ATION SER AREA/OTH SYS NONEMERGE A0130 FEDERATED FEDERATED NCY 5 TRANSPORT TRANSPORT TRANSPORT ATION: ATION SER ATION SER WHEELDUI R VAN COLLECTIO 91268 COMBINED COMBINED N VENOUS 5 PHYSICIAN PHYSICIAN BLOOD S LA S LA VENIPUNCT URE LIPID 18703 COMBINED COMBINED PANEL 5 PHYSICIAN PHYSICIAN S LA S LA HEPATIC 77647 COMBINED COMBINED FUNCTION 5 PHYSICIAN PHYSICIAN PANEL S LA S LA NONEMERG A0120 FEDERATED FEDERATED TRNSPRT: 5 MINI-BUS TRANSPORT TRANSPORT MTN ATION SER ATION SER AREA/OTH SYS COLLECTIO 96897 COMBINED COMBINED N VENOUS 5 PHYSICIAN PHYSICIAN [place]LO[place] [address] COMBINED COMBINED THYROID 5 PHYSICIAN PHYSICIAN STIMULATI S LA S LA NG HORMONE TSH RADIOLOGI 76395 EXPRESS EXPRESS C EXAM 5 MOBILE MOBILE CHEST 2 DIAGNOSTI DIAGNOSTI VIEWS C SE C SE FRONTAL&L ATERAL BLOOD 43067 COMBINED COMBINED COUNT 5 PHYSICIAN PHYSICIAN COMPLETE S LA S LA AUTO&AUTO DIFRNTL WBC LIPID 30258 COMBINED COMBINED PANEL 5 PHYSICIAN PHYSICIAN S LA S LA COMPREHEN 44576 COMBINED COMBINED SIVE 5 PHYSICIAN PHYSICIAN [place] [address] COMBINED COMBINED THYROID 5 PHYSICIAN PHYSICIAN STIMULATI [place] [address] COMBINED COMBINED THYROID 4 PHYSICIAN PHYSICIAN STIMULATI [place] [address] COMBINED COMBINED THYROID 4 PHYSICIAN PHYSICIAN STIMULATI S LA S LA NG HORMONE TSH RADIOLOGI 88684 EXPRESS EXPRESS C EXAM 4 MOBILE MOBILE CHEST 2 DIAGNOSTI DIAGNOSTI VIEWS C SE C SE FRONTAL&[place] [address] [facility] THYROID 3 DIAGNOSTI DIAGNOSTI STIMULATI CS CS NG HORMONE TSH BASIC 80443 [facility] METABOLIC 3 DIAGNOSTI DIAGNOSTI PANEL CS CS CALCIUM TOTAL COMPREHEN 24611 [facility] SIVE 2 DIAGNOSTI DIAGNOST[place] [address] [facility] THYROID 2 DIAGNOSTI DIAGNOSTI STIMULATI CS CS NG HORMONE TSH SKIN TEST 40510 [facility] 2 N CO N [facility] CENTER CENTER INTRADERM AL LIPID 10284 COMBINED COMBINED PANEL 2 PHYSICIAN PHYSICIAN S LA S LA COMPREHEN 69350 COMBINED COMBINED SIVE 2 PHYSICIAN PHYSICIAN METABOLIC S LA S LA PANEL HEMOGLOBI 49355 COMBINED COMBINED N 2 PHYSICIAN PHYSICIAN GLYCOSYLA S LA S LA DIGNA A1C HEMOGLOBI 55385 COMBINED COMBINED N 2 PHYSICIAN PHYSICIAN GLYCOSYLA S LA S LA DIGNA A1C COMPREHEN 43496 COMBINED COMBINED SIVE 2 PHYSICIAN PHYSICIAN METABOLIC S LA S LA PANEL LIPID 13823 COMBINED COMBINED PANEL 2 PHYSICIAN PHYSICIAN S LA S LA THROMBOPL 78011 [facility] ASTIN 2 Y Y TIME HOSPITAL HOSPITAL PARTIAL PLASMA/WH OLE BLOOD AMB A0427 KEISHA KEISHA SERVICE 2 [facility] FAY[facility] ALS [facility] EMERGENCY [facility] TRANSPORT LEVEL 1 ECG 22904 [facility] ROUTINE 2 Y Y ECG HOSPITAL HOSPITAL W/LEAST 12 LDS TRCG ONLY W/O I&R RINGERS J7120 [facility] LACTATE 2 Y Y INFUSION [facility] UP TO 1000 CC BASIC 91812 [facility] METABOLIC 2 Y Y PANEL [facility] CALCIUM TOTAL RADIOLOGI 04716 [place] NICKEL[place] C 2 MEDICAL POLY EXAMINATI SERV ON CHEST FOUNDATIO SINGLE N VIEW FRONTAL PROTHROMB 59078 [facility] IN TIME 2 [place] [address] [facility] INFUSION 2 Y Y HYDRATION [facility] INITIAL 31 MIN-1 HOUR GROUND A0425 KEISHA KEISHA MILEAGE 2 FAYETTE FAYETTE PER URBAN URBAN [place] [address] [facility] TROPONIN 2 Y Y QUANTITAT [facility] CIELO BLOOD 39903 [facility] COUNT 2 Y Y COMPLETE [facility] [place] [address] RADIOLOGY EMI HEAD/BRAI 2 ATT N W/O ASSOCIATE CONTRAST S OF NOTH MATERIAL ECG 22009 [facility] CHR HEEB CHR ROUTINE 2 ECG W/LEAST 12 LDS I&R ONLY OPHTH 55491 ELVIRA MIRELES, [facility] 9 VISION BRENT M XM&EVAL COMPRHNSV ESTAB PT 1/> URNLS DIP 11480 [facility] STICK/TAB LET REAGENT AUTO MICROSCOP Y LIPID 77271 [facility] PANEL 8 [place] [facility] GENERAL 00193 [facility] HEALTH [facility] [place] [facility] PANEL BILIRUBIN 36971 [facility] DIRECT 8 [facility] Encounters Encounter Start End Date Code Location Performer Type Date [facility] GENE - 7 7 [facility] OUTPATIEN INC T EMERGENCY 96705 GENE 7 7 [facility] DEPARTMEN INC T VISIT HIGH/URGE NT SEVERITY OFFICE 21985 [facility] OUTPATI[facility] 2 2 N CO N CO T VISIT 5 [facility] OFFICE 46111 [facility] OUTPATIEN 2 2 N CO N CO T NEW [address] [place] [address] [facility] 18589 NICK VALDEZ 2 2 MEDICAL SET DEPARTMEN SERV T VISIT FOUNDATIO HIGH/URGE N NT SEVERITY EMERGENCY 34284 [facility] DEPT 2 2 Y VISIT HOSPITAL HIGH SEVERITY& THREAT FUNCJ OFFICE 95320 [facility] MEDICAL RM Sow T VISIT GROUP 25 MINUTES
--- OUTSIDE RECORDS SUMMARY | 2016-08-16 09:42 | External Medical Summary Rpt ---
Author Author , Organization [employer] Address Unknown Phone Unavailable Care Team Providers Care Grain Combiner Name Role Phone RM HARRELL, Unavailable Unavailable RM HARRELL [facility] Unavailable Unavailable SERVICE, [facility] Unavailable Unavailable SERVICE, [facility] [place] Unavailable [place], [facility]available Unavailable [place], [facility] [place] [id number], Unavailable Unavailable [facility] Unavailable Unavailable [facility], [facility] Unavailable Unavailable [facility], [facility] Unavailable Unavailable TRANSPORTATION [facility], [facility] Un[facility] Unavailable [facility], [facility] Un[facility], [facility] Un[facility], Unavailable Unavailable [facility] MARILYN DICKSON, MARILYN DICKSON Unavailable Unavailable [facility] Unavailable Unavailable [place], KEISHA FAYETTE [facility] EMI ATT, EMI Unavailable Unavailable ATT NICKELS POLY, NICKELS Unavailable Unavailable [facility] Un[facility] Unavailable [facility]ENTER, [facility] Un[facility] Unavailable [facility], [facility], Unavailable Unavailable [facility], Unavailable Unavailable [facility] Unavailable [facility]available [facility], [facility] BRENT MIRELES, Unavailable Unavailable BRENT MIRELES, Unavailable [facility], Unavailable Unavailable [facility] Purpose Continuity of Care Document - 07-12-2007 through 2016 Problems Code Diagnosis DOS Provider Status E039 HYPOTHYROID 06-19-2016 [facility] UNSPECIFIED [place] E119 TYPE 2 04-20-2016 [facility] DIABETES [facility] P WITHOUT COMPLICATIO NS I2510 ASHD SITKA 04-20-2016 [facility] CORONARY [facility] ARTERY W/O HOSPITAL P ANGINA PECTORIS R1013 EPIGASTRIC 04-20-2016 [facility] PAIN [facility] P R1110 VOMITING 04-20-2016 [facility] UNSPECIFIED AMBULANCE SERVICE R12 HEARTBURN 04-20-2016 [facility] SERVICE [id number] PERSONAL 04-20-[address] [facility] P DEPENDENCE E785 HYPERLIPIDE 02-28-2016 [facility] UNSPECIFIED LA D649 ANEMIA 09-05-2015 COMBINED UNSPECIFIED PHYSICIANS LA I10 ESSENTIAL 09-05-2015 [facility] PRIMARY [facility] HYPERTENSIO LA N R69 ILLNESS 04-25-2015 [facility] UNSPECIFIED TRANSPORTAT ION SER 89154 NONSPEC 11-23-2014 [facility] TUBERCULIN DIAGNOSTIC SKIN TEST SE W/O ACTIVE TB 2724 OTHER AND 08-31-2014 COMBINED UNSPECIFIED PHYSICIANS [place] HYPERLIPIDE STEFFEN 2449 UNSPECIFIED 06-29-2014 [facility] HYPOTHYROID LA ISM 15647 DIAB W/O 03-29-2012 [facility] COMP TYPE [facility]NO[facility] II/UNS NOT STATED UNCNTRL 00224 OTHER 03-29-2012 [facility] FATIGUE V741 SCREENING 01-23-2012 [facility] EXAMINATION [facility] PULMONARY TUBERCULOSI S V5869 LONG-TERM 12-17-2011 COM[facility]ED (CURRENT) PHYSICIANS USE OF [place] OTHER MEDICATIONS 4293 CARDIOMEGAL 05-29-2011 [facility] 5180 PULMONARY 05-29-2011 [employer] MEDICAL COLLAPSE SERV [facility] 29230 CHEST PAIN 05-29-2011 [facility] 24953 ACUTE 05-27-2011 [facility] DUE TO [facility] SOLAR RADIATION 3671 MYOPIA 08-11-2008 [facility] 2720 PURE 09-22-2007 [facility] TEROLEMIA 96267 ESOPHAGEAL 09-22-2007 [facility] 7823 EDEMA 09-22-2007 [facility] 7962 ELEVATED BP 09-22-2007 [facility] WITHOUT DX HYPERTENSIO N E86.0 DEHYDRATION [...] M #6 TA 12 BL 0 ET AK 37 06 12 05 56 28 CV [...] M #6 TA 12 BL 0 ET AK 37 06 10 04 56 28 CV [...] M #6 TA 12 BL 0 ET AK 37 06 09 03 56 28 CV [...] M #6 TA 12 BL 0 ET AK 37 06 08 02 56 28 CV 73 BA Ac IL 00 -0 -2 .0 S 31 NK ti OS 00 4- 8- 00 PH 06 S ve EC 45 20 20 AR DA 50 08 08 MA OT 2 CY D C M 20 #6 .6 12 0 MG TA BL ET AK 37 06 07 01 56 28 CV [...] M #6 TA 12 BL 0 ET AK 37 06 07 00 56 28 CV [...] M #6 TA 12 BL 0 ET AK 37 09 05 05 56 28 CV [...] e #6 TA 12 BL 0 ET AK 37 09 04 04 56 28 CV 70 No Ac IL 00 -2 -2 .0 S 38 t ti OS 00 PH 05 Av ve EC 45 20 20 AR ai 50 07 08 MA la OT 2 CY bl C e 20 #6 .6 12 0 MG TA BL ET AK 37 09 04 03 56 28 CV [...] e #6 TA 12 BL 0 ET AK 37 09 03 02 56 28 CV [...] e #6 TA 12 BL 0 ET AK 37 09 03 01 56 28 CV [...] [place] Code [place] [address] COMBINED COMBINED THYROID 7 PHYSICIAN PHYSICIAN STIMULATI S LA S [place] NG HORMONE TSH COLLECTIO 14164 COMBINED COMBINED N VENOUS 7 PHYSICIAN PHYSICIAN B[place] [address] [facility] TROPONIN 7 [facility] QUANTITAT INC INC CIELO BLOOD 52357 [facility] COUNT 7 [facility] COMPLETE INC INC AUTO&[place] [address] [facility] INFUSION 7 [facility] THERAPY/P INC INC ROPHYLAXI S /DX 1ST TO 1 HR THERAPEUT 05912 [facility] IC 7 [facility] INJECTION INC INC IV PUSH EACH NEW DRUG GROUND A0425 [facility] AMBULANCE PER SERVICE SERVICE STATUTE MILE ECG 09393 GENE SANDERS JR ROUTINE 7 [facility] W/LEAST P 12 LDS I&R ONLY THER 08377 [facility] PROPH/DX 7 [facility] NJX EA INC INC SEQL IV PUSH SBST/DRUG FAC AMB A0427 [facility] SERVICE 7 AMBULANCE AMBULANCE ALS SERVICE SERVICE EMERGENCY TRANSPORT LEVEL 1 ECG 78414 [facility] ROUTINE 7 [facility] ECG INC INC W/LEAST 12 LDS TRCG ONLY W/O [place] [address] [facility] LIPASE 7 [facility] INC INC COMPREHEN 25175 G[facility] SIVE 7 [facility] [address] [facility] AMYLASE 7 [facility] INC INC BLOOD 02456 [facility] OCCULT 7 [facility] PEROXIDAS INC INC E ACTV QUAL FECES 1-3 SPEC COLLECTIO 71276 COMBINED COMBINED N VENOUS 6 PHYSICIAN PHYSICIAN [place]LO[place] [address] COMBINED COMBINED THYROID 6 PHYSICIAN PHYSICIAN STIMULATI S LA S LA NG HORMONE TSH LIPID 18733 COMBINED COMBINED PANEL 6 PHYSICIAN PHYSICIAN S LA S LA HEPATIC 90864 COMBINED COMBINED FUNCTION 6 PHYSICIAN PHYSICIAN PANEL S LA S LA COLLECTIO 70628 COMBINED COMBINED N VENOUS 6 PHYSICIAN PHYSICIAN BLOOD S LA S LA VENIPUNCT URE LIPID 42242 COMBINED COMBINED PANEL 6 PHYSICIAN PHYSICIAN S LA S LA COLLECTIO 89202 COMBINED COMBINED N VENOUS 6 PHYSICIAN PHYSICIAN BLOOD S LA S LA VENIPUNCT URE BLOOD 54103 COMBINED COMBINED COUNT 6 PHYSICIAN PHYSICIAN COMPLETE S LA S LA AUTO&AUTO DIFRNTL WBC COMPREHEN 56207 COMBINED COMBINED SIVE 6 PHYSICIAN PHYSICIAN METABOLIC S LA S LA PANEL LIPID 47151 COMBINED COMBINED PANEL 6 PHYSICIAN PHYSICIAN S LA S LA COLLECTIO 12859 COMBINED COMBINED N VENOUS 6 PHYSICIAN PHYSICIAN [place]LO[place] [address] COMBINED COMBINED THYROID 6 PHYSICIAN PHYSICIAN STIMULATI S LA S LA NG HORMONE TSH NONEMERG A0120 FEDERATED FEDERATED TRNSPRT: 6 MINI-BUS TRANSPORT TRANSPORT MTN ATION SER ATION SER AREA/OTH SYS NONEMERGE A0130 FEDERATED FEDERATED NCY 5 TRANSPORT TRANSPORT TRANSPORT ATION: ATION SER ATION SER WHEELDUI R VAN COLLECTIO 66530 COMBINED COMBINED N VENOUS 5 PHYSICIAN PHYSICIAN BLOOD S LA S LA VENIPUNCT URE LIPID 18114 COMBINED COMBINED PANEL 5 PHYSICIAN PHYSICIAN S LA S LA HEPATIC 73906 COMBINED COMBINED FUNCTION 5 PHYSICIAN PHYSICIAN PANEL S LA S LA NONEMERG A0120 FEDERATED FEDERATED TRNSPRT: 5 MINI-BUS TRANSPORT TRANSPORT MTN ATION SER ATION SER AREA/OTH SYS COLLECTIO 59284 COMBINED COMBINED N VENOUS 5 PHYSICIAN PHYSICIAN BLOOD [place] [address] COMBINED COMBINED THYROID 5 PHYSICIAN PHYSICIAN STIMULATI S LA S LA NG HORMONE TSH RADIOLOGI 82738 [facility] EXPRESS C EXAM 5 MOBILE MOBILE CHEST 2 DIAGNOSTI DIAGNOSTI VIEWS C SE C SE FRONTAL&L ATERAL BLOOD 50935 COMBINED COMBINED COUNT 5 PHYSICIAN PHYSICIAN COMPLETE S LA S LA AUTO&AUTO DIFRNTL WBC LIPID 43186 COMBINED COMBINED PANEL 5 PHYSICIAN PHYSICIAN S LA S LA COMPREHEN 80990 COMBINED COMBINED SIVE 5 PHYSICIAN PHYSICIAN [place] [address] COMBINED COMBINED THYROID 5 PHYSICIAN PHYSICIAN STIMULATI [place] [address] COMBINED COMBINED THYROID 4 PHYSICIAN PHYSICIAN STIMULATI [place] [address] COMBINED COMBINED THYROID 4 PHYSICIAN PHYSICIAN STIMULATI S LA S LA NG HORMONE TSH RADIOLOGI 66195 EXPRESS EXPRESS C EXAM 4 MOBILE MOBILE CHEST 2 DIAGNOSTI DIAGNOSTI VIEWS C SE C SE FRONTAL&[place] [address] [facility] THYROID 3 DIAGNOSTI DIAGNOSTI STIMULATI CS CS NG HORMONE TSH BASIC 68483 [facility] METABOLIC 3 DIAGNOSTI DIAGNOSTI PANEL CS CS CALCIUM TOTAL COMPREHEN 89935 [facility] SIVE 2 DIAGNOSTI DIAGNOST[place] [address] [facility] THYROID 2 DIAGNOSTI DIAGNOSTI STIMULATI CS CS NG HORMONE TSH SKIN TEST 42002 [facility] 2 N CO N CO [facility] INTRADERM AL LIPID 27690 COMBINED COMBINED PANEL 2 PHYSICIAN PHYSICIAN S LA S LA COMPREHEN 68420 COMBINED COMBINED SIVE 2 PHYSICIAN PHYSICIAN METABOLIC S LA S LA PANEL HEMOGLOBI 84124 COMBINED COMBINED N 2 PHYSICIAN PHYSICIAN GLYCOSYLA S LA S LA DIGNA A1C HEMOGLOBI 97116 COMBINED COMBINED N 2 PHYSICIAN PHYSICIAN GLYCOSYLA S LA S LA DIGNA A1C COMPREHEN 35643 COMBINED COMBINED SIVE 2 PHYSICIAN PHYSICIAN METABOLIC S LA S LA PANEL LIPID 08140 COMBINED COMBINED PANEL 2 PHYSICIAN PHYSICIAN S LA S LA THROMBOPL 74196 [facility] ASTIN 2 Y Y TIME HOSPITAL HOSPITAL PARTIAL PLASMA/WH OLE BLOOD AMB A0427 KEISHA KEISHA SERVICE 2 [facility] EMERGENCY [facility] TRANSPORT LEVEL 1 ECG 95472 [facility] ROUTINE 2 Y Y ECG HOSPITAL HOSPITAL W/LEAST 12 LDS TRCG ONLY W/O I&R RINGERS J7120 [facility] LACTATE 2 Y Y INFUSION [facility] UP TO 1000 CC BASIC 17919 [facility] METABOLIC 2 Y Y PANEL [facility] CALCIUM TOTAL RADIOLOGI 91841 [place] NICKEL[place] C 2 MEDICAL POLY EXAMINATI SERV ON CHEST FOUNDATIO SINGLE N VIEW FRONTAL PROTHROMB 57984 [facility] IN TIME [place] [address] [facility] INFUSION 2 Y Y HYDRATION [facility] INITIAL 31 MIN-1 HOUR GROUND A0425 KEISHA KEISHA MILEAGE 2 FAYETTE FAYETTE PER URBAN URBAN STAT[place] [address] [facility] TROPONIN 2 Y Y QUANTITAT [facility] CIELO BLOOD 09379 [facility] COUNT 2 Y Y COMPLETE [facility] [place] [address] RADIOLOGY EMI HEAD/BRAI 2 ATT N W/O ASSOCIATE CONTRAST S OF NOTH MATERIAL ECG 12565 [facility]EE[facility] CHR HEEB CHR ROUTINE 2 ECG W/LEAST 12 LDS I&R ONLY OPHTH 59849 ELVIRA MIRELES, [facility] 9 VISION BRENT M XM&EVAL COMPRHNSV ESTAB PT 1/> URNLS DIP 44532 [facility] STICK/TAB LET REAGENT AUTO MICROSCOP Y LIPID 39834 [facility] PANEL 8 [place] [facility] GENERAL 03646 [facility] HEALTH [facility] [place] [facility] PANEL BILIRUBIN 26784 [facility] DIRECT 8 [facility] Encounters Encounter Start End Date Code Location Performer Type Date [facility] GENE - 7 7 [facility] OUTPATIEN INC T EMERGENCY 89101 GENE 7 7 [facility] DEPARTMEN INC T VISIT HIGH/URGE NT SEVERITY OFFICE 62926 [facility] OUTPATIEN 2 2 N CO N CO T VISIT 5 [facility] OFFICE 96632 [facility] OUTPATIEN 2 2 N CO N CO T NEW [address] [place] [address] UNIVERSIT - 2 2 Y [facility] T EMERGENCY 71047 NICK VALDEZ 2 2 MEDICAL SET DEPARTMEN SERV T VISIT FOUNDATIO HIGH/URGE N NT SEVERITY EMERGENCY 61136 UNIVERSIT DEPT 2 2 Y VISIT HOSPITAL HIGH SEVERITY& THREAT FUNCJ OFFICE 33354 [facility] MEDICAL RM Swo T VISIT GROUP 25 MINUTES
--- OUTSIDE RECORDS SUMMARY | 2016-08-16 09:46 | External Medical Summary Rpt ---
Author Author , Organization [employer] Address Unknown Phone Unavailable Care Team Providers Care Logistic Specialist Name Role Phone RM HARRELL, Unavailable Unavailable RM HARRELL [facility] Unavailable Unavailable SERVICE, [facility] Unavailable Unavailable SERVICE[facility] Unavailable Unavailable [place], [facility]available Unavailable [place], [facility] [place] [id number], Unavailable Unavailable [facility] Unavailable Unavailable [facility], [facility] Unavailable Unavailable [facility], [facility] Unavailable Unavailable TRANSPORTATION SER, [facility] Unavailable Unavailable INC, [facility] Unavailable Unavailable HOSPITAL P, [facility], [facility] Unavailable [facility]available [facility] [employer], Unavailable Unavailable [facility] [employer] [facility] MARILYN DICKSON, MARILYN DICKSON Unavailable Unavailable [facility] Unavailable Unavailable [place], [facility]HA [facility] EMI ATT, EMI Unavailable Unavailable ATT NICKELS POLY, NICKELS Unavailable [facility]available POLY [facility] Un[facility] Un[facility] Unavailable [facility], [facility], Unavailable Unavailable [facility], Unavailable Unavailable [facility] Unavailable Unavailable [facility], [facility] BRENT MIRELES, Unavailable Unavailable BRENT MIRELES [facility], Unavailable Unavailable [facility], Unavailable Unavailable [facility] Purpose Continuity of Care Document - 07-12-2007 through 2016 Problems Code Diagnosis DOS Provider Status E039 HYPOTHYROID 06-19-2016 [facility] UNSPECIFIED [place] E119 TYPE 2 04-20-2016 [place] [facility] P WITHOUT COMPLICATIO NS I2510 ASHD TULUKSAK 04-20-2016 [place] CORONARY [facility] P ANGINA PECTORIS R1013 EPIGASTRIC 04-20-2016 [facility] P R1110 VOMITING 04-20-2016 [facility] UNSPECIFIED AMBULANCE SERVICE R12 HEARTBURN 04-20-2016 [facility] SERV[facility] [id number] PERSONAL 04-20-2016 [facility] P DEPENDENCE E785 HYPERLIPIDE 02-28-2016 [facility] UNSPECIFIED LA D649 ANEMIA 09-05-2015 COMBINED UNSPECIFIED PHYSICIANS LA I10 ESSENTIAL 09-05-2015 [facility] PRIMARY [facility] HYPERTENSIO LA N R69 ILLNESS 04-25-2015 [facility] UNSPECIFIED TRANSPORTAT ION SER 15927 NONSPEC 11-23-2014 [facility] TUBERCULIN DIAGNOSTIC SKIN TEST SE W/O ACTIVE TB 2724 OTHER AND 08-31-2014 COMBINED UNSPECIFIED PHYSICIANS [place] HYPERLIPIDE STEFFEN 2449 UNSPECIFIED 06-29-2014 [facility] HYPOTHYROID [place] ISM 29013 DIAB W/O 03-29-2012 [facility] II/UNS NOT STATED UNCNTRL 95798 OTHER 03-29-2012 [facility] FATIGUE V741 SCREENING 01-23-2012 [place] EXAMINATION HI KIT digital FOR [facility]Y PULMONARY TUBERCULOSI S V5869 LONG-TERM 12-17-2011 COMBINED (CURRENT) PHYSICIANS USE OF [place] OTHER MEDICATIONS 4293 CARDIOMEGAL 05-29-2011 [facility] MED[facility] Y SERV [facility] 5180 PULMONARY 05-29-2011 [facility] COLLAPSE SERV [facility] 25673 CHEST PAIN 05-29-2011 [facility] 91275 ACUTE 05-27-2011 [facility] DUE TO OF [facility] SOLAR RADIATION 3671 MYOPIA 08-11-2008 [facility] 2720 PURE 09-22-2007 [facility] [employer] TEROLEMIA 79448 ESOPHAGEAL 09-22-2007 [facility] 7823 EDEMA 09-22-2007 [facility] 7962 ELEVATED BP 09-22-2007 [facility] [employer] WITHOUT DX HYPERTENSIO N Medications [...] M #6 TA 12 BL 0 ET CA 37 06 12 05 56 28 CV [...] M #6 TA 12 BL 0 ET CA 37 06 10 04 56 28 CV [...] M #6 TA 12 BL 0 ET CA 37 06 09 03 56 28 CV [...] M #6 TA 12 BL 0 ET CA 37 06 08 02 56 28 CV 73 BA Ac IL 00 -0 -2 .0 S 31 NK ti OS 00 4- 8- 00 PH 06 S ve EC 45 20 20 AR DA 50 08 08 MA OT 2 CY D C M 20 #6 .6 12 0 MG TA BL ET CA 37 06 07 01 56 28 CV [...] M #6 TA 12 BL 0 ET CA 37 06 07 00 56 28 CV [...] M #6 TA 12 BL 0 ET CA 37 09 05 05 56 28 CV [...] e #6 TA 12 BL 0 ET CA 37 09 04 04 56 28 CV 70 No Ac IL 00 -2 -2 .0 S 38 t ti OS 00 PH 05 Av ve EC 45 20 20 AR ai 50 07 08 MA la OT 2 CY bl C e 20 #6 .6 12 0 MG TA BL ET CA 37 09 04 03 56 28 CV [...] e #6 TA 12 BL 0 ET CA 37 09 03 02 56 28 CV [...] e #6 TA 12 BL 0 ET CA 37 09 03 01 56 28 CV [...] Procedures Procedure DOS Code Location Performer Comment COLLECTIO 54777 COMBINED COMBINED N VENOUS 7 PHYSICIAN PHYSICIAN [place] [address] COMBINED COMBINED THYROID 7 PHYSICIAN PHYSICIAN STIMULATI S [place] S [place] NG HORMONE TSH COMPREHEN 84037 G[facility] SIVE 7 [facility] [address] [facility] AMYLASE 7 [facility] INC INC BLOOD 74874 G[facility] OCCULT 7 [facility] PEROXIDAS INC INC E ACTV QUAL FECES 1-3 [place] [address] [facility] INFUSION 7 [facility] THERAPY/P INC INC ROPHYLAXI S /DX 1ST TO 1 HR THERAPEUT 89346 [facility] IC 7 [facility] INJECTION INC INC IV PUSH EACH NEW DRUG THER 23717 [facility] PROPH/DX 7 [facility] NJX EA INC INC SEQL IV PUSH SBST/DRUG FAC AMB A0427 EJ [facility] SERVICE 7 AMBULANCE AMBULANCE ALS SERVICE SERVICE EMERGENCY TRANSPORT LEVEL [address] [place] [address] [place] [facility] LIPASE 7 [facility] INC INC ECG 31389 [facility] ROUTINE 7 [facility] ECG INC INC W/LEAST 12 LDS TRCG ONLY W/O I&R GROUND A0425 EJ [facility] MILEAGE 7 AMBULANCE AMBULANCE [place] [address] [facility] TROPONIN 7 [facility] QUANTITAT INC INC CIELO BLOOD 32129 [facility] COUNT 7 [facility] COMPLETE INC INC AUTO&AUTO DIFRNTL WBC ECG 99052 GENE SANDERS JR ROUTINE 7 [facility] W/LEAST P 12 LDS I&R ONLY COLLECTIO 13408 COMBINED COMBINED N VENOUS 6 PHYSICIAN PHYSICIAN [place]LO[place] [address] COMBINED COMBINED THYROID 6 PHYSICIAN PHYSICIAN STIMULATI S LA S LA NG HORMONE TSH HEPATIC 54763 COMBINED COMBINED FUNCTION 6 PHYSICIAN PHYSICIAN PANEL S LA S LA LIPID 85837 COMBINED COMBINED PANEL 6 PHYSICIAN PHYSICIAN S LA S LA LIPID 99395 COMBINED COMBINED PANEL 6 PHYSICIAN PHYSICIAN S LA S LA COLLECTIO 99593 COMBINED COMBINED N VENOUS 6 PHYSICIAN PHYSICIAN BLOOD S LA S LA VENIPUNCT URE COLLECTIO 64256 COMBINED COMBINED N VENOUS 6 PHYSICIAN PHYSICIAN BLOOD S LA S LA VENIPUNCT URE LIPID 25136 COMBINED COMBINED PANEL 6 PHYSICIAN PHYSICIAN S LA S LA COMPREHEN 37719 COMBINED COMBINED SIVE 6 PHYSICIAN PHYSICIAN METABOLIC S LA S LA PANEL BLOOD 59541 COMBINED COMBINED COUNT 6 PHYSICIAN PHYSICIAN COMPLETE S LA S LA AUTO&[place] [address] COMBINED COMBINED THYROID 6 PHYSICIAN PHYSICIAN STIMULATI S LA S LA NG HORMONE TSH COLLECTIO 70625 COMBINED COMBINED N VENOUS 6 PHYSICIAN PHYSICIAN BLOOD S LA S LA VENIPUNCT URE NONEMERG A0120 FEDERATED FEDERATED TRNSPRT: 6 MINI-BUS TRANSPORT TRANSPORT MTN ATION SER ATION SER AREA/OTH SYS NONEMERGE A0130 FEDERATED FEDERATED NCY 5 TRANSPORT TRANSPORT TRANSPORT ATION: ATION SER ATION SER WHEELCHAI R VAN COLLECTIO 56171 COMBINED COMBINED N VENOUS 5 PHYSICIAN PHYSICIAN BLOOD S LA S LA VENIPUNCT URE LIPID 01636 COMBINED COMBINED PANEL 5 PHYSICIAN PHYSICIAN S LA S LA HEPATIC 00284 COMBINED COMBINED FUNCTION 5 PHYSICIAN PHYSICIAN PANEL S LA S LA NONEMERG A0120 FEDERATED FEDERATED TRNSPRT: 5 MINI-BUS TRANSPORT TRANSPORT MTN ATION SER ATION SER AREA/OTH SYS COLLECTIO 58576 COMBINED COMBINED N VENOUS 5 PHYSICIAN PHYSICIAN BLO[place] [address] COMBINED COMBINED THYROID 5 PHYSICIAN PHYSICIAN STIMULATI S LA S LA NG HORMONE TSH RADIOLOGI 69698 EXPRESS EXPRESS C EXAM 5 MOBILE MOBILE CHEST 2 DIAGNOSTI DIAGNOSTI VIEWS C SE C SE FRONTAL&L ATERAL BLOOD 23967 COMBINED COMBINED COUNT 5 PHYSICIAN PHYSICIAN COMPLETE S LA S LA AUTO&AUTO DIFRNTL WBC COMPREHEN 84350 COMBINED COMBINED SIVE 5 PHYSICIAN PHYSICIAN METABOLIC S LA S LA PANEL LIPID 27387 COMBINED COMBINED PANEL 5 [place] [address] COMBINED COMBINED THYROID 5 PHYSICIAN PHYSICIAN STIMULATI [place] [address] COMBINED COMBINED THYROID 4 PHYSICIAN PHYSICIAN STIMULATI [place] [address] COMBINED COMBINED THYROID 4 PHYSICIAN PHYSICIAN STIMULATI S LA S LA NG HORMONE TSH RADIOLOGI 17991 EXPRESS EXPRESS C EXAM 4 MOBILE MOBILE CHEST 2 DIAGNOSTI DIAGNOSTI VIEWS C SE C SE FRONTAL&[place] [address] [facility] THYROID 3 DIAGNOSTI DIAGNOSTI STIMULATI CS CS NG HORMONE TSH BASIC 31742 [facility] METABOLIC 3 DIAGNOSTI DIAGNOSTI PANEL CS CS CALCIUM TOTAL COMPREHEN 19685 [facility] SIVE 2 DIAGNOSTI DIAGNOST[place] [address] [facility] THYROID 2 DIAGNOSTI DIAGNOSTI STIMULATI CS CS NG HORMONE TSH SKIN TEST 14920 P[facility] PENDELETO 2 N CO N [facility] INTRADERM AL COMPREHEN 64017 COMBINED COMBINED SIVE 2 PHYSICIAN PHYSICIAN METABOLIC S LA S LA PANEL LIPID 60346 COMBINED COMBINED PANEL 2 PHYSICIAN PHYSICIAN S LA S LA HEMOGLOBI 34286 COMBINED COMBINED N 2 PHYSICIAN PHYSICIAN GLYCOSYLA S LA S LA DIGNA A1C HEMOGLOBI 27967 COMBINED COMBINED N 2 PHYSICIAN PHYSICIAN GLYCOSYLA S LA S LA DIGNA A1C LIPID 60159 COMBINED COMBINED PANEL 2 PHYSICIAN PHYSICIAN S LA S LA COMPREHEN 60405 COMBINED COMBINED SIVE 2 PHYSICIAN [place]IC[place] [address] [facility] INFUSION 2 Y Y HYDRATION [facility] INITIAL 31 MIN-1 HOUR RINGERS J7120 [facility] LACTATE 2 Y Y INFUSION [facility] UP TO 1000 CC ECG 61431 [facility] ROUTINE 2 Y Y ECG [facility] W/LEAST 12 LDS TRCG ONLY W/O I&R GROUND A0425 KEISHA KEISHA MILEAGE 2 FAYETTE FAYETTE PER URBAN URBAN STATUTE COG[facility] COGOVT MILE PROTHROMB 12763 [facility] IN TIME 2 Y Y HOSPITAL HOSPITAL RADIOLOGI 28991 [place] NICKEL[place] C 2 MEDICAL POLY EXAMINATI SERV ON CHEST FOUNDATIO SINGLE N VIEW FRONTAL THROMBOPL 07524 [facility] ASTIN 2 Y Y TIME HOSPITAL [facility] PARTIAL PLASMA/WH OLE BLOOD BASIC 89398 [facility] METABOLIC 2 Y Y PANEL [facility] CALCIUM TOTAL AMB A0427 KEISHA KEISHA SERVICE 2 FAYETTE FAYETTE ALS URBAN URBAN EMERGENCY COGOVT COGOVT TRANSPORT LEVEL [address] [place] [address] [facility] TROPONIN 2 Y Y QUANTITAT [facility] CIELO BLOOD 58460 [facility] COUNT 2 Y Y COMPLETE [facility] [address] RADIOLOGY EMI HEAD/BRAI 2 ATT N W/O ASSOCIATE CONTRAST S OF NOTH MATERIAL ECG 16993 HEEB CHR HEEB CHR ROUTINE 2 ECG W/LEAST 12 LDS I&R ONLY OPHTH 60129 ELVIRA MIRELES, [facility] 9 VISION BRENT M XM&EVAL COMPRHNSV ESTAB PT 1/> GENERAL 84698 [facility] 8 [employer] PANEL BILIRUBIN 51501 [facility] DIRECT 8 [email or web address] LIPID 12028 [facility] PANEL 8 [email or web address] URNLS DIP 09131 [facility] 8 [email or web address] STICK/TAB LET REAGENT AUTO MICROSCOP Y Encounters Encounter Start End Date Code Location Performer Type Date EMERGENCY 85005 GENE Zamora 7 [facility] INC T VISIT [facility]IGH/URGE NT [facility] GENE Zamora 7 [facility] OUTPATIEN INC T OFFICE 95520 [facility] P[facility] OUTPATIEN 2 2 N CO N CO T VISIT 5 [facility] OFFICE 80099 P[facility] P[facility] OUTPATIEN 2 2 N CO N CO T NEW 10 [facility] UNIVERSIT - 2 2 Y OUTPATIEN HOSPITAL T EMERGENCY 41014 UNIVERSIT DEPT 2 2 Y VISIT HOSPITAL HIGH SEVERITY& THREAT FUN EMERGENCY 43401 NICK VALDEZ 2 2 MEDICAL SET DEPARTMEN SERV T VISIT FOUNDATIO HIGH/URGE N NT SEVERITY OFFICE 15558 [facility] 8 8 MEDICAL RM Sow T VISIT GROUP 25 MINUTES
--- OUTSIDE RECORDS SUMMARY | 2016-08-16 09:46 | External Medical Summary Rpt ---
Author Author , Organization [employer] Address Unknown Phone Unavailable Care Team Providers Care Otolaryngology Surgeon Name Role Phone RM HARRELL, Unavailable Unavailable RM HARRELL [facility] Unavailable Unavailable SERVICE, [facility] Unavailable Unavailable SERVICE, [facility] Unavailable Unavailable [place], [facility] Unavailable Unavailable [place], [facility] [place] [facility], Unavailable Unavailable [facility] Unavailable Unavailable DIAGNOSTIC [facility], [facility] Unavailable Unavailable [facility]NO[facility], [facility] Unavailable Unavailable TRANSPORTATION SER, [facility] Unavailable Unavailable INC, [facility] Un[facility]available H[facility]PITAL P, [facility], [facility] Unavailable Unavailable [facility] [employer] [facility], Unavailable Unavailable [facility] [facility] MARILYN DICKSON, MARILYN DICKSON Unavailable [facility]available [facility] Unavailable Unavailable [place], KEISHA [facility] Un[facility] EMI ATT, EMI Unavailable Unavailable ATT NICKELS POLY, NICKELS Unavailable Unavailable POL[facility], [facility] Unavailable Unavailable [facility], [email or web address], Unavailable Unavailable [facility], Unavailable Unavailable [facility] Unavailable Unavailable OF [facility], [facility] BRENT MIRELES, Unavailable Unavailable BRENT MIRELES [facility], Unavailable Unavailable [facility], Unavailable Unavailable [facility] Purpose Continuity of Care Document - 07-12-2007 through 2016 Problems Code Diagnosis DOS Provider Status E039 HYPOTHYROID 06-19-2016 [facility] UNSPECIFIED LA E119 TYPE 2 04-20-2016 [place] [facility] P WITHOUT COMPLICATIO NS I2510 ASHD BOIS FORTE 04-20-2016 [place] CORONARY [facility] W/O HOSPITAL P ANGINA PECTORIS R1013 EPIGASTRIC 04-20-2016 [facility] P R1110 VOMITING 04-20-2016 [facility] UNSPECIFIED AMBULANCE SERVICE R12 HEARTBURN 04-20-2016 [facility] AMBULANCE SERVICE [id number] PERSONAL 04-20-2016 [facility] DEPENDENCE E785 HYPERLIPIDE 02-28-2016 [facility] UNSPECIFIED LA D649 ANEMIA 09-05-2015 COMBINED UNSPECIFIED PHYSICIANS LA I10 ESSENTIAL 09-05-2015 [facility] PRIMARY PHYSICI[facility] HYPERTENSIO LA N R69 ILLNESS 04-25-2015 [facility] UNSPECIFIED TRANSPORTAT ION SER 08629 NONSPEC 11-23-2014 [facility] TUBERCULIN DIAGNOSTIC SKIN TEST SE W/O ACTIVE TB 2724 OTHER AND 08-31-2014 COMBINED UNSPECIFIED PHYSICIANS LA HYPERLIPIDE STEFFEN 2449 UNSPECIFIED 06-29-2014 [facility] HYPOTHYROID [place] ISM 96033 DIAB W/O 03-29-2012 [facility] COMP TYPE [facility]NO[facility] II/UNS NOT STATED UNCNTRL 20109 OTHER 03-29-2012 [facility] FATIGUE V741 SCREENING 01-23-2012 [place] EXAMINATION [facility] FOR [place] PULMONARY TUBERCULOSI S V5869 LONG-TERM 12-17-2011 COMBINED (CURRENT) PHYSICIANS USE OF LA OTHER MEDICATIONS 4293 CARDIOMEGAL 05-29-2011 [facility] 5180 PULMONARY 05-29-2011 [place] [facility] 78549 CHEST PAIN 05-29-2011 [facility] 34066 ACUTE 05-27-2011 [facility] DUE TO OF [facility] SOLAR RADIATION 3671 MYOPIA 08-11-2008 [facility] 2720 PURE 09-22-2007 [facility] [employer] TEROLEMIA 40927 ESOPHAGEAL 09-22-2007 [facility] 7823 EDEMA 09-22-2007 [facility] [place] [facility] 7962 ELEVATED BP 09-22-2007 [facility] [place] [facility] [facility] WITHOUT DX HYPERTENSIO N Medications Na [...] M #6 TA 12 BL 0 ET IA 37 06 12 05 56 28 CV [...] M #6 TA 12 BL 0 ET IA 37 06 10 04 56 28 CV [...] M #6 TA 12 BL 0 ET IA 37 06 09 03 56 28 CV [...] M #6 TA 12 BL 0 ET IA 37 06 08 02 56 28 CV 73 BA Ac IL 00 -0 -2 .0 S 31 NK ti OS 00 4- 8- 00 PH 06 S ve EC 45 20 20 AR DA 50 08 08 MA OT 2 CY D C M 20 #6 .6 12 0 MG TA BL ET IA 37 06 07 01 56 28 CV [...] M #6 TA 12 BL 0 ET IA 37 06 07 00 56 28 CV [...] M #6 TA 12 BL 0 ET IA 37 09 05 05 56 28 CV [...] e #6 TA 12 BL 0 ET IA 37 09 04 04 56 28 CV 70 No Ac IL 00 -2 -2 .0 S 38 t ti OS 00 PH 05 Av ve EC 45 20 20 AR ai 50 07 08 MA la OT 2 CY bl C e 20 #6 .6 12 0 MG TA BL ET IA 37 09 04 03 56 28 CV [...] e #6 TA 12 BL 0 ET IA 37 09 03 02 56 28 CV [...] e #6 TA 12 BL 0 ET IA 37 09 03 01 56 28 CV [...] Procedure DOS Code Location Performer Comment COLLECTIO 44167 COMBINED COMBINED N VENOUS 7 PHYSICIAN PHYSICIAN [place] [address] COMBINED COMBINED THYROID 7 PHYSICIAN PHYSICIAN STIMULATI S LA S [place] NG HORMONE TSH COMPREHEN 88241 GENE M[facility]S SIVE 7 [facility] [address] [place] AMYLASE 7 [facility] INC INC BLOOD 73646 G[facility] OCCULT 7 [facility] PEROXIDAS INC INC E ACTV QUAL FECES 1-3 [place] [address] [place] INFUSION 7 [facility] THERAPY/P INC INC ROPHYLAXI S /DX 1ST TO 1 HR THERAPEUT 27692 [facility] IC 7 [facility] INJECTION INC INC IV PUSH EACH NEW DRUG THER 25669 [facility] PROPH/DX 7 [facility] NJX EA INC INC SEQL IV PUSH SBST/DRUG FAC AMB A04[address] [facility] [facility] SERVICE 7 AMBULANCE AMBULANCE ALS SERVICE SERVICE EMERGENCY TRANSPORT LEVEL [address] [place] [address] [place] LIPASE 7 [facility] INC INC ECG 31804 [facility] ROUTINE 7 [facility] ECG INC INC W/LEAST 12 LDS TRCG ONLY W/O I&R GROUND A04[address] [facility] [facility] MILEAGE 7 AMBULANCE AMBULANCE [place] [address] [place] TROPONIN 7 [facility] QUANTITAT INC INC CIELO BLOOD 80875 GENE [facility] COUNT 7 [facility] COMPLETE INC INC AUTO&AUTO DIFRNTL WBC ECG 14933 GENE SANDERS JR ROUTINE 7 [facility] W/LEAST P 12 LDS I&R ONLY COLLECTIO 21153 COMBINED COMBINED N VENOUS 6 PHYSICIAN PHYSICIAN [place]LO[place] [address] COMBINED COMBINED THYROID 6 PHYSICIAN PHYSICIAN STIMULATI S LA S LA NG HORMONE TSH HEPATIC 21374 COMBINED COMBINED FUNCTION 6 PHYSICIAN PHYSICIAN PANEL S LA S LA LIPID 12914 COMBINED COMBINED PANEL 6 PHYSICIAN PHYSICIAN S LA S LA LIPID 62718 COMBINED COMBINED PANEL 6 PHYSICIAN PHYSICIAN S LA S LA COLLECTIO 89167 COMBINED COMBINED N VENOUS 6 PHYSICIAN PHYSICIAN BLOOD S LA S LA VENIPUNCT URE COLLECTIO 86910 COMBINED COMBINED N VENOUS 6 PHYSICIAN PHYSICIAN BLOOD S LA S LA VENIPUNCT URE LIPID 31076 COMBINED COMBINED PANEL 6 PHYSICIAN PHYSICIAN S LA S LA COMPREHEN 31539 COMBINED COMBINED SIVE 6 PHYSICIAN PHYSICIAN METABOLIC S LA S LA PANEL BLOOD 26424 COMBINED COMBINED COUNT 6 PHYSICIAN PHYSICIAN COMPLETE S LA S LA AUTO&[place] [address] COMBINED COMBINED THYROID 6 PHYSICIAN PHYSICIAN STIMULATI S LA S LA NG HORMONE TSH COLLECTIO 39328 COMBINED COMBINED N VENOUS 6 PHYSICIAN PHYSICIAN BLOOD S LA S LA VENIPUNCT URE NONEMERG A0120 FEDERATED FEDERATED TRNSPRT: 6 MINI-BUS TRANSPORT TRANSPORT MTN ATION SER ATION SER AREA/OTH SYS NONEMERGE A0130 FEDERATED FEDERATED NCY 5 TRANSPORT TRANSPORT TRANSPORT ATION: ATION SER ATION SER WHEELCHAI R VAN COLLECTIO 13188 COMBINED COMBINED N VENOUS 5 PHYSICIAN PHYSICIAN BLOOD S LA S LA VENIPUNCT URE LIPID 46369 COMBINED COMBINED PANEL 5 PHYSICIAN PHYSICIAN S LA S LA HEPATIC 64607 COMBINED COMBINED FUNCTION 5 PHYSICIAN PHYSICIAN PANEL S LA S LA NONEMERG A0120 FEDERATED FEDERATED TRNSPRT: 5 MINI-BUS TRANSPORT TRANSPORT MTN ATION SER ATION SER AREA/OTH SYS COLLECTIO 14858 COMBINED COMBINED N VENOUS 5 PHYSICIAN PHYSICIAN BLOOD [place] [address] COMBINED COMBINED THYROID 5 PHYSICIAN PHYSICIAN STIMULATI S LA S LA NG HORMONE TSH RADIOLOGI 77668 EXPRESS EXPRESS C EXAM 5 MOBILE MOBILE CHEST 2 DIAGNOSTI DIAGNOSTI VIEWS C SE C SE FRONTAL&L ATERAL BLOOD 62787 COMBINED COMBINED COUNT 5 PHYSICIAN PHYSICIAN COMPLETE S LA S LA AUTO&AUTO DIFRNTL WBC COMPREHEN 59419 COMBINED COMBINED SIVE 5 PHYSICIAN PHYSICIAN METABOLIC S LA S LA PANEL LIPID 09973 COMBINED COMBINED PANEL 5 [place] [address] COMBINED COMBINED THYROID 5 PHYSICIAN PHYSICIAN STIMULATI [place] [address] COMBINED COMBINED THYROID 4 PHYSICIAN PHYSICIAN STIMULATI [place] [address] COMBINED COMBINED THYROID 4 PHYSICIAN PHYSICIAN STIMULATI S LA S LA NG HORMONE TSH RADIOLOGI 24964 EXPRESS EXPRESS C EXAM 4 MOBILE MOBILE CHEST 2 DIAGNOSTI DIAGNOSTI VIEWS C SE C SE FRONTAL&[place] [address] [facility] THYROID 3 DIAGNOSTI DIAGNOSTI STIMULATI CS CS NG HORMONE TSH BASIC 96216 [facility] METABOLIC 3 DIAGNOSTI DIAGNOSTI PANEL CS CS CALCIUM TOTAL COMPREHEN 40780 [facility] SIVE 2 DIAGNOSTI DIAGNOST[place] [address] [facility] THYROID 2 DIAGNOSTI DIAGNOSTI STIMULATI CS CS NG HORMONE TSH SKIN TEST 09916 [facility] P[facility] 2 N CO N CO [facility] INTRADERM AL COMPREHEN 77511 COMBINED COMBINED SIVE 2 PHYSICIAN PHYSICIAN METABOLIC S LA S LA PANEL LIPID 73974 COMBINED COMBINED PANEL 2 PHYSICIAN PHYSICIAN S LA S LA HEMOGLOBI 25146 COMBINED COMBINED N 2 PHYSICIAN PHYSICIAN GLYCOSYLA S LA S LA DIGNA A1C HEMOGLOBI 42242 COMBINED COMBINED N 2 PHYSICIAN PHYSICIAN GLYCOSYLA S LA S LA DIGNA A1C LIPID 26559 COMBINED COMBINED PANEL 2 PHYSICIAN PHYSICIAN S LA S LA COMPREHEN 50906 COMBINED COMBINED SIVE 2 PHYSICIAN [place] [address] [facility] INFUSION [address] [facility] INITIAL 31 MIN-1 HOUR RINGERS J7120 [facility] LACTATE [address] [facility] UP TO 1000 CC ECG 53664 [facility] ROUTINE [address] [facility] W/LEAST 12 LDS TRCG ONLY W/O I&R GROUND A0425 KEISHA KEISHA MILEAGE 2 FAYETTE FAYETTE PER URBAN URBAN STATUTE [facility] MILE PROTHROMB 97267 [facility] IN TIME 2 Y Y HOSPITAL HOSPITAL RADIOLOGI 90084 [place] NICKEL[place] C 2 MEDICAL POLY EXAMINATI SERV ON CHEST FOUNDATIO SINGLE N VIEW FRONTAL THROMBOPL 04973 [facility] ASTIN 2 Y [address] [facility] PARTIAL PLASMA/WH OLE BLOOD BASIC 69193 [facility] METABOLIC 2 Y Y PANEL [facility] CALCIUM TOTAL AMB A0427 KEISHA KEISHA SERVICE 2 FAYETTE FAYETTE ALS URBAN URBAN EMERGENCY [facility] TRANSPORT LEVEL [address] [place] [address] [facility] TROPONIN 2 Y Y QUANTITAT [facility] CIELO BLOOD 05567 [facility] COUNT 2 Y Y COMPLETE [facility] [place] [address] RADIOLOGY EMI HEAD/BRAI 2 ATT N W/O ASSOCIATE CONTRAST S OF NOTH MATERIAL ECG 76107 HEEB CHR HEEB CHR ROUTINE 2 ECG W/LEAST 12 LDS I&R ONLY OPHTH 43710 ELVIRA MIRELES, [facility] 9 VISION BRENT M XM&EVAL COMPRHNSV ESTAB PT 1/> GENERAL 77636 [facility] HEALTH 8 [employer] PANEL BILIRUBIN 65173 [facility] DIRECT 8 [employer] LIPID 13660 [facility] PANEL 8 [employer] URNLS DIP 94645 [facility] 8 [employer] STICK/TAB LET REAGENT AUTO MICROSCOP Y Encounters Encounter Start End Date Code Location Performer Type Date EMERGENCY 00300 GENE Zamora 7 [facility] DEPARTMEN INC T VISIT HIGH/URGE NT [facility] GENE Zamora 7 [facility] OUTPATIEN INC T OFFICE 34928 [facility] OUTPATIEN 2 2 N CO N CO T VISIT 5 [facility] OFFICE 94848 [facility] P[facility] OUTPATIEN 2 2 N CO N CO T NEW 10 [facility] UNIVERSIT - 2 2 Y OUTPATIEN HOSPITAL T EMERGENCY 66378 UNIVERSIT DEPT 2 2 Y VISIT HOSPITAL HIGH SEVERITY& THREAT FUN EMERGENCY 35140 NICK VALDEZ 2 2 MEDICAL SET DEPARTMEN SERV T VISIT FOUNDATIO HIGH/URGE N NT SEVERITY OFFICE 09999 [facility] 8 8 MEDICAL RM Sow T VISIT GROUP 25 MINUTES
--- OUTSIDE RECORDS SUMMARY | 2016-08-16 09:47 | External Medical Summary Rpt ---
Demographics Preferred Language Citizen Of [place] Marital Status Unknown Latter Day Affiliation Unknown Race Unknown Ethnic Group Unknown Author Author , Organization [employer] Address Unknown Phone Unavailable Purpose Continuity of Care Document - through 2016 Immunization No patient found.
--- OUTSIDE RECORDS SUMMARY | 2016-08-16 09:47 | External Medical Summary Rpt ---
[...] in 12:02 source source PM data data Briscoe# 0.3 0.0 - x10(3)/ No No Nov [...] x10(3)/ No No Nov [address] [facility] informa informa 2013 tion in tion [...]
--- OUTSIDE RECORDS SUMMARY | 2016-08-16 09:47 | External Medical Summary Rpt ---
Demographics Preferred Language Cypriot Marital Status Unknown Amish Affiliation Unknown Race Unknown Ethnic Group Unknown Author Author , Organization [employer] Address Unknown Phone Unavailable Purpose Continuity of Care Document - through 2016 Immunization No patient found.
--- OUTSIDE RECORDS SUMMARY | 2016-08-16 09:47 | External Medical Summary Rpt ---
[...] in 12:02 source source PM data data Hubbard# 0.3 0.0 - x10(3)/ No No Nov [...] x10(3)/ No No Nov 12 ELENO 11.0 [facility] informa informa 2013 tion in tion in [...]
== END 2016-08-10 10:30 | disposition home or self-care (01) ==
LOC: ER 14:54 → 2ND 17:14 → ER 17:14 → 2ND 18:45
PROVIDERS: Emergency Medicine; Family Medicine; Internal Medicine Adolescent Medicine
PROC: 0DB78ZX Excision of Stomach, Pylorus, Via Natural or Artificial Opening Endoscopic, Diagnostic (ICD-10-PCS; principal; 2016-08-07)
DX: R10.13 Epigastric pain (principal); E86.0 Dehydration; K92.0 Hematemesis; D50.0 Iron deficiency anemia secondary to blood loss (chronic); E11.9 Type 2 diabetes mellitus without complications
CPT/HCPCS: G0378; J2405

== ENCOUNTER → 2016-08-19 | Outpatient (CLI) | payer MEDICAID ==
[~2016-08-19] MED LIST changes: +CARAFATE1 GM/10 ML PO; +DIFLUCAN 100MG100 MG PO; +PANTOPRAZOLE SO40 MG PO
[2016-08-19 10:18] LABS: LYMPH % 14.4 % (10-50)
[2016-08-19 10:21] LABS: HEMOGLOBIN 11.1 g/dL (14.1-18.0)
[2016-08-19 10:30] LABS: BUN 12 mg/dL (7-18)
[2016-08-19 10:31] LABS: GFR (ESTIMATED) 47 ML/MIN (>60)
--- NOTE | 2016-08-19 15:22 | RADIOLOGY REPORT PS360 ---
UGI SERIES W/ AIR HISTORY: PARAESOPHAGEAL HERNIA ORDERING PHYSICIAN: MARY HEIN MD PATIENT AGE: 66 years COMPARISON: None FINDINGS: There is a small sliding hiatal hernia. A moderate amount of gastroesophageal reflux was demonstrated during the exam. No ulcer or mass is evident. There is a small duodenal diverticulum projecting off the transverse portion of the duodenum. FLUOROSCOPY TIME : 1 minute and 33 seconds. IMPRESSION: Small sliding hiatal hernia with moderate gastroesophageal reflux otherwise negative upper GI
== END ==
LOC: RAD 08-14 10:00
PROVIDERS: Surgery
DX: K44.9 Diaphragmatic hernia without obstruction or gangrene (principal)